=== PATIENT | female | born 1990 | race Caucasian/White ===

== ENCOUNTER 2022-02-23 15:14 | Outpatient (REF) | payer OTHER, SELFPAY ==
[2022-02-24 03:47] LABS: CT PCR NOT DETECTED (Not Detect.); NG PCR NOT DETECTED (Not Detect.)
[2022-02-24 15:28] LABS: BV Int Neg Control Negative (Negative); BV Int Pos Control Positive (Positive)
[2022-02-26 11:43] LABS: HPV mRNA E6/E7 rflx Not Detected (Not Detected)
== END 2022-02-23 15:15 | disposition home or self-care (01) ==
LOC: HO.LAB 15:14
PROVIDERS: PCP Internal Medicine; Visit Provider Advanced Practice Midwife
DX: Z01.419 Encounter for gynecological examination (general) (routine) without abnormal findings (principal); Z11.51 Encounter for screening for human papillomavirus (HPV); Z11.3 Encounter for screening for infections with a predominantly sexual mode of transmission; Z11.8 Encounter for screening for other infectious and parasitic diseases; F41.9 Anxiety disorder, unspecified; Z79.3 Long term (current) use of hormonal contraceptives; Z79.899 Other long term (current) drug therapy
CPT/HCPCS: 87480; 87491; 87510; 87591; 87624; 87660; 88142

== ENCOUNTER 2022-06-16 11:20 | Outpatient (REF) | payer OTHER, SELFPAY ==
[2022-06-16 13:45] LABS: MANUAL DIFF FLAG NO
[2022-06-16 13:53] LABS: Basophils Percent Auto 0.4 % (0-2); Eosinophils Absolute Auto 0.3 X10*3/uL (0.0-0.4); Eosinophils Percent Auto 3.3 % (0-4); Hemoglobin 13.3 g/dl (12.0-16.0); Imm Gran Abs Auto 0.05 X10*3/uL (0.00-0.03); Imm Gran Pct Auto 0.5 % (0.0-0.4); Lymphocytes Percent Auto 32.7 % (20-40); Mean Corpuscular HGB Conc 34.1 g/dl (31.0-35.0); Monocytes Absolute Auto 0.5 X10*3/uL (0.1-1.2); Monocytes Percent Auto 5.2 % (2-11); Neutrophils Absolute Auto 5.3 x10*3/uL (2.0-8.3); Neutrophils Percent Auto 57.9 % (45-73); Platelet Count 264 X10*3/uL (160-400); Red Blood Count 4.43 X10*6/uL (4.20-5.50); Red Cell Distribution Width 12.4 % (11.0-16.0); White Blood Count 9.2 X10*3/uL (4.8-10.8)
[2022-06-16 16:06] LABS: Alanine Aminotransferase 9 U/L (0-31); Albumin Level 4.3 g/dL (3.5-5.0); Alkaline Phosphatase 48 U/L (39-117); Anion Gap 12 (12-20); Aspartate Amino Transferase 13 U/L (5-31); Bilirubin Total 0.3 mg/dL (0.0-1.0); Blood Urea Nitrogen 9 mg/dL (9-16); Calcium 8.9 mg/dL (8.4-10.2); Carbon Dioxide 23 mmol/L (22-29); Chloride 109 mmol/L (96-108); Cholesterol 212 mg/dL; Estimated Glomerular Filt Rate > 60; Glucose Fasting 79 mg/dL (60-99); HDL Cholesterol 52 mg/dL; LDL Cholesterol Calculated 128 mg/dl; Potassium 4.1 mmol/L (3.3-5.1); Sodium 140 mmol/L (135-145); Total Protein 6.9 g/dL (6.5-8.0); Triglycerides 163 mg/dL
[2022-06-16 16:17] LABS: TSH reflex Free T4 0.44 uIU/mL (0.32-4.0)
[2022-06-16 16:19] LABS: Vitamin B12 261 pg/mL (200-900)
[2022-06-21 13:01] LABS: Vitamin D 25-OH, D2 <4 ng/mL; Vitamin D 25-OH, D3 59 ng/mL; Vitamin D 25-OH, Total 59 ng/mL (30-100)
== END 2022-06-16 11:21 | disposition home or self-care (01) ==
LOC: HO.HMGCLDS 11:20
PROVIDERS: PCP Internal Medicine; Visit Provider Internal Medicine
DX: Z00.01 Encounter for general adult medical examination with abnormal findings (principal); F41.1 Generalized anxiety disorder; R53.83 Other fatigue; E66.3 Overweight
CPT/HCPCS: 36415; 80053; 80061; 82306; 82607; 84443; 85025

== ENCOUNTER 2023-04-28 14:43 | Outpatient (REF) | payer OTHER, SELFPAY ==
[2023-04-29 15:13] LABS: CT PCR NOT DETECTED (Not Detect.); NG PCR NOT DETECTED (Not Detect.)
[2023-04-30 11:10] LABS: BV Int Neg Control Negative (Negative); BV Int Pos Control Positive (Positive)
== END 2023-04-28 14:44 | disposition home or self-care (01) ==
LOC: HO.LNP 14:43
PROVIDERS: PCP Internal Medicine; Visit Provider Advanced Practice Midwife
DX: Z01.419 Encounter for gynecological examination (general) (routine) without abnormal findings (principal); Z20.2 Contact with and (suspected) exposure to infections with a predominantly sexual mode of transmission
CPT/HCPCS: 0353U; 87480; 87510; 87660

== ENCOUNTER 2023-10-20 11:59 | Outpatient (AMB) | payer OTHER, SELFPAY ==
[2023-10-20 12:01] VITALS: BP 108/64; PULSE 88; O2SAT 99; BMI 28.0
--- NOTE | 2023-10-20 12:01 | MHC.PC.OV ---
Vital Signs 10/20/23 12:01 Height 4 ft 9 in Weight 129 lb 8 oz BMI 28.0 BP 108/64 Blood Pressure Location Rt brachial Position Sitting Pulse 88 Pulse Source Pulse Oximeter Pulse Oximetry (%) 99 Oxygen Delivery Method Room Air Intake Visit Reasons: Annual PE Allergies No Known Allergies Allergy (Verified 10/20/23 12:01) Medication List - Last Reconciled 10/20/23 by Estiven Little MD desogestrel-ethinyl estradiol 0.15-0.03 mg (Apri) 1 tab PO DAILY Tobacco use date assessed: 10/20/23 Dental Screening Dental Screen Date: 10/20/23 Did you have a dental visit in the last 12 months?: Yes Did you have a dental problem in the last 6 months where you did not have access to dental care?: No Was dental information given to patient?: Patient has dentist HPI Annual PE HPI Details Patient is a 33-year-old female came in today for physical exam Patient is complaining of feeling of fullness in her ears, on examination there is no wax I would recommend to try taking Claritin for few days to see if that helps. She has small skin cyst left side of her neck close to ear which is not bothering her and it is chronic Patient have OBGYN breast exam and Pap smear is through them and control is also through OBGYN I have ordered labs for the patient to do them fasting She is no longer taking Lexapro, she was taking that through Psychiatry for anxiety but she is feeling fine without the medication. Follow-up 1 year for physical exam [facility] Medical History Anxiety Surgical History [place] teeth removed Hx of tonsillectomy H/O left wrist surgery Family History Mother Hypothyroid Father Cancer Mental health disorder Social History Housing: House Patient Tobacco Use Status: Never used Tobacco e-Cigarette/Vaping Use: Never Used service: No Current occupational status: employed Cognitive needs: No Hearing needs: No Vision needs: Yes Female Reproductive History Menstrual Age of Menarche: 13 Questionnaire PHQ-9 Over the last 2 weeks, how often have you been bothered by any of the following problems? 1. Little interest or pleasure in doing things: several days 2. Feeling down, depressed, or hopeless: several days 3. Trouble falling or staying asleep, or sleeping too much: several days 4. Feeling tired or having little energy: several days 5. Poor appetite or overeating: more than half the days 6. Feeling bad about yourself - or that you are a failure or have let yourself or your family down: several days 7. Trouble concentrating on things, such as reading the newspaper or watching television: not at all 8. Moving or speaking so slowly that other people could have noticed. Or the opposite - being so fidgety or restless that you have been moving around a lot more than usual: not at all 9. Thoughts that you would be better off or of hurting yourself in some way: not at all Total score: 7 Depression Screening Interpretation: Negative Depression Screening Done: Yes 67589 - PHQ-9 Billing: Yes Source: Developed by Drs. Jeromy Qureshi, Madonna Maldonado, Nilay Vidal and colleagues, with an educational mechelle from [employer]. Thrive Questionnaire Date Thrive assessed: 10/20/23 I am a: Patient What is your living situation today?: I have a steady place to live Within the past 12 months, did the food you bought not last and you didn't have the money to get more?: Never true Within the past 12 months, did you worry whether your food would run out before you got money to buy more?: Never true Do you have trouble paying for medicines?: No Do you have trouble getting transportation to medical appointments?: No Do you have trouble paying your heating and electricity bill?: No Do you have trouble taking care of your child, family member or friend?: No Do you have trouble with day-to-day activities such as bathing, preparing meals, shopping, managing finances, etc.?: No Are you currently unemployed and looking for a job?: No Are you interested in more education?: No Please select the resources that you would like help with: None Currently or been in a relationship where the following occur: no concerns reported AUDIT C Alcohol Use Questionnaire (AUDIT-C) 1. How often do you have a drink containing alcohol?: Never 3. How often do you have six or more drinks on one occasion?: Never Total Score: 0 Score Reviewed/Action Taken: Yes CHAYO-7 AMB Questionnaire CHAYO-7 Date CHAYO - 7 assessed: 10/20/23 Feeling nervous, anxious, or on edge: 1 = Several days Not being able to stop or control worryin = Several days Worrying too much about different things: 1 = Several days Trouble relaxin = Several days Being so restless that it is hard to sit still: 0 = Not at all Becoming easily annoyed or irritable: 1 = Several days Feeling afraid as if something awful might happen: 0 = Not at all Total CHAYO-7 score (0-4 normal; 5-9 mild; 10-14 moderate; 15-21 severe): 5 Source: Developed by Drs. Jeromy Qureshi, Madonna Maldonado, Nilay Vidal and colleagues, with an educational mechelle from [employer]. CHAYO-7 Assessment Billing CHAYO-7 Assessment Tool: CHAYO-7 Assessment 60156 Review of Systems Const Denies chills, Denies fever(s) and Denies headache(s) Eyes Denies blurry vision ENT Denies headache(s), Denies nasal discharge, Denies nasal obstruction, Denies odynophagia and Denies sinus pain Card Denies chest pain at rest and Denies chest pain with activity Resp Denies cough and Denies hemoptysis GI Denies diarrhea, Denies odynophagia, Denies vomiting and Denies hematemesis Reports as per HPI Musc Denies abnormal gait Skin/Breast Reports as per HPI Neuro Denies Neuro-related abnormal movements, Denies Abnormal speech present, Denies abnormal gait, Denies headache(s) and Denies Sensory deficit (Neuro) Psych Denies mood swings and Denies paranoia Endo Reports as per HPI Alfonzo/Lymph Reports as per HPI Aller/Immun Reports as per HPI Physical exam (Primary Care) Vital Signs: Last Vital Signs Pulse 88 10/20/23 12:01 BP 108/64 10/20/23 12:01 Pulse Ox 99 10/20/23 12:01 Oxygen Delivery Method Room Air 10/20/23 12:01 BMI result Body Mass Index 28.0 Tobacco/Smoking Status: Tobacco use Status Tobacco use date assessed 10/20/23 10/20/23 12:05 Patient Tobacco Use Status Never used Tobacco 10/20/23 12:05 e-Cigarette/Vaping Use Never Used 10/20/23 12:05 PHQ-9: PHQ-9 Score PHQ-9: Total score 7 10/20/23 12:28 Depression Screening Interpretation: Negative Thrive Assessment: Date of Thrive Assessment Date Thrive assessed 10/20/23 10/20/23 12:28 Currently or been in a relationship where the following occur: no concerns reported Const General: cooperative, comfortable and no acute distress Orientation/consciousness: patient oriented x3 HENMT Other: No wax in the ears, tympanic membrane intact light reflex intact Head: Yes normocephalic and Yes atraumatic Eyes General: appearance normal, both eyes and all related structures Pupils: Equal, round and reactive pupils present EOM: EOMs intact bilaterally Neck Neck: Yes supple and No lymphadenopathy Thyroid: Thyroid normal Lymphatic: no lymphadenopathy noted Resp Effort & Inspection: normal respiratory effort and able to speak in complete sentences Auscultation: clear to auscultation bilaterally Cardio Heart sounds: S1 normal heart sound present and S2 normal heart sound present GI Palpation (GI): Soft to palpation and nontender Auscultation: normal bowel sounds General: Yes no CVA tenderness Back/Spine/Pelvis Back: no CVA tenderness Skin General skin exam: elasticity normal and turgor normal Neuro General: patient oriented x3 and gait normal Cranial nerves: Yes Equal, round and reactive pupils present Speech: No Abnormal speech present Sensory Exam: No Sensory deficit (Neuro) Coordination: tandem gait normal and Romberg test negative Extrem General: Yes normal exam except as noted and No edema Assessment and Plan Assessment & Plan (1) Encounter for general adult medical examination with abnormal findings: Code(s): Z00.01 - Encounter for general adult medical examination with abnormal findings (2) Overweight (BMI 25.0-29.9): Code(s): E66.3 - Overweight (3) B12 deficiency: Code(s): E53.8 - Deficiency of other specified B group vitamins (4) Skin cyst: Code(s): L72.9 - Follicular cyst of the skin and subcutaneous tissue, unspecified (5) Ear fullness: Code(s): H93.8X9 - Other specified disorders of ear, unspecified ear Qualifiers: Laterality: bilateral Qualified Code(s): H93.8X3 - Other specified disorders of ear, bilateral Plan Patient is a 33-year-old female came in today for physical exam Patient is complaining of feeling of fullness in her ears, on examination there is no wax I would recommend to try taking Claritin for few days to see if that helps. She has small skin cyst left side of her neck close to ear which is not bothering her and it is chronic Patient have OBGYN breast exam and Pap smear is through them and control is also through OBGYN I have ordered labs for the patient to do them fasting She is no longer taking Lexapro, she was taking that through Psychiatry for anxiety but she is feeling fine without the medication. Follow-up 1 year for physical exam Orders: Orders Complete Blood Count Auto Diff Today E53.8 - Deficiency of other specified B group vitamins, E66.3 - Overweight, H93.8X9 - Other specified disorders of ear, unspecified ear, L72.9 - Follicular cyst of the skin and subcutaneous tissue, unspecified, Z00.01 - Encounter for general adult medical examination with abnormal findings Comprehensive [place]. Panel Fast Today E53.8 - Deficiency of other specified B group vitamins, E66.3 - Overweight, H93.8X9 - Other specified disorders of ear, unspecified ear, L72.9 - Follicular cyst of the skin and subcutaneous tissue, unspecified, Z00.01 - Encounter for general adult medical examination with abnormal findings Lipid Panel Today E53.8 - Deficiency of other specified B group vitamins, E66.3 - Overweight, H93.8X9 - Other specified disorders of ear, unspecified ear, L72.9 - Follicular cyst of the skin and subcutaneous tissue, unspecified, Z00.01 - Encounter for general adult medical examination with abnormal findings TSH reflex Free T4 Today E53.8 - Deficiency of other specified B group vitamins, E66.3 - Overweight, H93.8X9 - Other specified disorders of ear, unspecified ear, L72.9 - Follicular cyst of the skin and subcutaneous tissue, unspecified, Z00.01 - Encounter for general adult medical examination with abnormal findings Vitamin B12 Today E53.8 - Deficiency of other specified B group vitamins Coding Level of Care Code Est Pt Prev Care 18-39y(54094) Diagnoses Encounter for general adult medical examination with abnormal findings Z00.01 Overweight (BMI 25.0-29.9) E66.3 B12 deficiency E53.8 Skin cyst L72.9 Sensation of fullness in both ears H93.8X3 Laterality: bilateral Additional Codes CHAYO-7 Assessment Billing - CHAYO-7 Assessment Tool: CHAYO-7 Assessment [id number] ([id number])
== END 2023-10-20 12:19 | disposition home or self-care (01) ==
PROVIDERS: PCP Internal Medicine; Visit Provider Internal Medicine
DX: Z00.00 Encounter for general adult medical examination without abnormal findings (principal); E66.3 Overweight; E53.8 Deficiency of other specified B group vitamins; L72.9 Follicular cyst of the skin and subcutaneous tissue, unspecified; H93.8X3 Other specified disorders of ear, bilateral; Z68.28 Body mass index [BMI] 28.0-28.9, adult
CPT/HCPCS: 99395

== ENCOUNTER 2024-05-03 15:00 | Outpatient (REF) | payer OTHER, SELFPAY ==
[2024-05-04 03:48] LABS: CT PCR NOT DETECTED (Not Detect.); NG PCR NOT DETECTED (Not Detect.)
[2024-05-04 11:06] LABS: Bacterial Vaginosis PCR NEGATIVE (Negative); Candida Group PCR NOT DETECTED (Not Detect); Candida glab krusei PCR NOT DETECTED (Not Detect); Trichomonas vaginalis PCR NOT DETECTED (Not Detect)
== END 2024-05-03 15:01 | disposition home or self-care (01) ==
LOC: HO.LAB 15:00
PROVIDERS: PCP Internal Medicine; Visit Provider Advanced Practice Midwife
DX: Z11.3 Encounter for screening for infections with a predominantly sexual mode of transmission (principal)
CPT/HCPCS: 0352U; 0353U

== ENCOUNTER 2024-05-03 15:00 | Outpatient (AMB) | payer OTHER, SELFPAY ==
--- NOTE | 2024-05-03 15:03 | A.OFFVIS_ITS ---
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 She stopped the control pills about 6 months ago because her partner had a vasectomy and completed all his negative testing afterwards. She said it took a couple of months for her periods to come back regular but now they have and they pretty much are about every 30 by her recounting of when the menses were in March. She felt that she gained a little bit of weight so she is trying to make healthier choices and go for more walks and its it resulting in her being able to sleep better too she is going to be offer the summer because she has on a school schedule for which a reading a lot of both send maybe tryingout for a play. [facility] Medical History Anxiety Surgical History [place] teeth removed Hx of tonsillectomy H/O left wrist surgery Family History Mother Hypothyroid Father Cancer Mental health disorder Social History Housing: House Patient Tobacco Use Status: Never used Tobacco e-Cigarette/Vaping Use: Never Used service: No Current occupational status: employed Cognitive needs: No Hearing needs: No Vision needs: Yes Female Reproductive History Menstrual Age of Menarche: 13 Duration of menses: 3-5 days Date of last menstrual period: 04/09/24 control method: none Total pregnancies: 0 Date of last pap smear: 02/24/22 (negative) History of abnormal pap smear: No Physical Exam Vital Signs: Last Vital Signs BP 100/60 05/03/24 15:10 BMI result Body Mass Index 27.9 Const General: healthy appearing, comfortable, no acute distress, well developed and alert Nutritional Appearance: average body habitus Orientation/consciousness: patient oriented x3 Limitations: no limitations HEENT Head: Yes normocephalic Neck Neck: Yes normal visual inspection Chest Chest palpation & inspection: normal inspection of the chest Breast/axilla inspection: normal inspection of the breasts and normal inspection of the axillae Breast/axilla palpation: normal palpation of the breasts and normal palpation of the axillae Resp Effort & Inspection: normal respiratory effort GI Inspection: Yes normal to inspection, No Abdominal wall edema and No distended Palpation (GI): Soft to palpation and nontender Other: External exam within normal limits vagina pink and moist normal appearing scant white discharge consistent with luteal phase. Cervix nulliparous pink smooth uterus small midposition mobile nontender adnexa nontender good tone with Kegel. General: Yes bladder normal to palpation External Female Exam: normal external appearance and normal appearance of the urethra Speculum Exam - Vagina: normal appearance of the vagina, normal palpation and normal vaginal discharge Speculum Exam - Cervix: normal appearance of the cervix, normal palpation and nontender Bimanual exam- vagina & uterus: normal bimanual exam, normal palpation, uterine size normal, bladder normal to palpation, consistency normal, normal palpation, uterine mobility normal, uterine shape normal, No Cervical tenderness present, non-tender and no cervical motion tenderness Bimanual Exam- Adnexa, other: normal adnexae, no masses, normal and No adnexal tenderness Neuro General: patient oriented x3 Assessment & Plan Assessment & Plan (1) Overweight (BMI 25.0-29.9): Code(s): E66.3 - Overweight Category: Medical (2) Cervical cancer screening: Comment: 02/23/22 Pap equals negative with negative HPV Code(s): Z12.4 - Encounter for screening for malignant neoplasm of cervix Category: Medical (3) Well woman exam with routine gynecological exam: Code(s): Z01.419 - Encounter for gynecological examination (general) (routine) without abnormal findings Category: Medical (4) Relies on partner's vasectomy for primary method of contraception: Code(s): Z78.9 - Other specified health status Category: Social Hx Plan -----Discussed in this visit the following: healthy balanced diet, regular and consistent exercise, getting recommended health screens, doing the best she can for her particular health concerns, kegel exercises, pap smear screening and followup recommendations, mammography screening and SBE, normal changes in cycles in her life stage--- . Reviewed self-care trying to maintain healthy body weight and the effect of gaining weight on regular menses . Discussed that if she ever did find herself missing menses and gaining more weight that there could be causality there and losing weight be the most important intervention. Reviewed her healthy eating and exercise plan. We will see her in 1 year her Pap smear will be according to ASCCP guidelines. Reviewed how she feels being off the control pills. She actually does not feel much difference at all reviewed the normal mucus and discharge changes that occur with normal cycles and signs of ovulation for educational purposes. Orders: Orders Bacterial Vaginosis Panel Today Z11.3 - Encounter for screening for infections with a predominantly sexual mode of transmission CT NG by PCR Today Z11.3 - Encounter for screening for infections with a predominantly sexual mode of transmission Coding Level of Care Code Est Pt Prev Care 18-39y(33880) Diagnoses Overweight (BMI 25.0-29.9) E66.3 Cervical cancer screening Z12.4 Well woman exam with routine gynecological exam Z01.419 Relies on partner's vasectomy for primary method of contraception Z78.9
[2024-05-03 15:10] VITALS: BP 100/60; BMI 27.9
== END 2024-05-03 16:01 | disposition home or self-care (01) ==
LOC: HO.HWSM 15:00
PROVIDERS: PCP Internal Medicine; Visit Provider Advanced Practice Midwife
DX: Z01.419 Encounter for gynecological examination (general) (routine) without abnormal findings (principal); E66.3 Overweight; Z78.9 Other specified health status
CPT/HCPCS: 99395

== ENCOUNTER 2024-08-03 09:05 | Outpatient (REF) | payer SELFPAY ==
[2024-08-03 10:05] LABS: MANUAL DIFF FLAG NO
[2024-08-03 10:44] LABS: Basophils Percent Auto 0.4 % (0-2); Eosinophils Absolute Auto 0.3 X10*3/uL (0.0-0.4); Eosinophils Percent Auto 3.2 % (0-4); Hematocrit 40.7 % (37.0-47.0); Hemoglobin 14.2 g/dl (12.0-16.0); Imm Gran Abs Auto 0.05 X10*3/uL (0.00-0.03); Imm Gran Pct Auto 0.5 % (0.0-0.4); Lymphocytes Absolute Auto 3.4 X10*3/uL (1.2-4.9); Lymphocytes Percent Auto 31.9 % (20-40); Mean Corpuscular HGB Conc 34.9 g/dl (31.0-35.0); Mean Corpuscular Hemoglobin 30.3 pg (27.0-33.0); Mean Corpuscular Volume 86.8 fL (80.0-98.0); Mean Platelet Volume 8.5 fL (9.4-12.3); Monocytes Absolute Auto 0.7 X10*3/uL (0.1-1.2); Monocytes Percent Auto 6.8 % (2-11); Neutrophils Percent Auto 57.2 % (45-73); Platelet Count 251 X10*3/uL (160-400); Red Blood Count 4.69 X10*6/uL (4.20-5.50); Red Cell Distribution Width 12.1 % (11.0-16.0); White Blood Count 10.5 X10*3/uL (4.8-10.8)
[2024-08-03 10:46] LABS: Albumin Level 4.4 g/dL (3.5-5.0); Bilirubin Total 0.2 mg/dL (0.0-1.0); Estimated Glomerular Filt Rate > 60; HDL Cholesterol 40 mg/dL (>40)
[2024-08-03 10:52] LABS: TSH reflex Free T4 0.76 uIU/mL (0.32-4.0)
[2024-08-03 10:59] LABS: Vitamin B12 1109 pg/mL (200-900)
[2024-08-03 11:24] LABS: Alanine Aminotransferase 24 U/L (0-31); Alkaline Phosphatase 72 U/L (39-117); Anion Gap 11 (12-20); Aspartate Amino Transferase 16 U/L (5-31); Blood Urea Nitrogen 9 mg/dL (9-16); Calcium 9.3 mg/dL (8.4-10.2); Carbon Dioxide 24 mmol/L (22-29); Chloride 109 mmol/L (96-108); Cholesterol 186 mg/dL (<200); Glucose Fasting 92 mg/dL (60-99); LDL Cholesterol Calculated 128 mg/dL (<100); Sodium 140 mmol/L (135-145); Total Protein 7.1 g/dL (6.5-8.0); Triglycerides 90 mg/dL (<150)
[2024-08-04 21:08] LABS: Mumps Virus IgG Antibody <9.00 AU/mL
== END 2024-08-03 09:06 | disposition home or self-care (01) ==
LOC: HO.HMGCLDS 09:05
PROVIDERS: PCP Internal Medicine; Visit Provider Internal Medicine
DX: Z00.01 Encounter for general adult medical examination with abnormal findings (principal); Z28.39 Other underimmunization status; E66.3 Overweight; E53.8 Deficiency of other specified B group vitamins; L72.9 Follicular cyst of the skin and subcutaneous tissue, unspecified; H93.8X9 Other specified disorders of ear, unspecified ear
CPT/HCPCS: 36415; 80053; 80061; 82607; 84443; 85025; 86735; 86762; 86765; 86787

== ENCOUNTER 2024-08-07 13:57 | Outpatient (AMB) | payer SELFPAY ==
--- NOTE | 2024-08-07 14:36 | AM.OFFVISNUR ---
Intake Visit Reasons: MMR Allergies No Known Allergies Allergy (Verified 05/03/24 15:10) Nursing Note MMR vaccine 0.5ml given to left deltoid Assessment & Plan Assessment & Plan Orders: Orders MMR Immunization Today Z23 - Encounter for immunization
== END 2024-08-07 16:22 | disposition home or self-care (01) ==
PROVIDERS: PCP Internal Medicine; Visit Provider Internal Medicine
DX: Z23 Encounter for immunization (principal)

== ENCOUNTER → 2024-08-07 13:57 | Outpatient (BNVA) | payer SELFPAY | PROVIDERS: PCP Internal Medicine; Visit Provider Internal Medicine | DX: Z23 Encounter for immunization (principal) | CPT/HCPCS: 90471; 90707 ==

== ENCOUNTER 2024-10-08 16:54 | Observation (INO) | payer BC, OTHER, SELFPAY ==
[2024-10-08] VITALS (8 sets, daily range): BP systolic 102–130; BP diastolic 58–81; PULSE 83–93; RESP 12–20; TEMP 36.6–37; O2SAT 97–100; BMI 27.7
--- NOTE | ~2024-10-08 | CT_ITS ---
EXAMINATION: CT ABDOMEN AND PELVIS WITH CONTRAST CLINICAL INFORMATION: Epigastric abdominal pain. COMPARISON: None available. TECHNIQUE: Multidetector volumetric imaging was performed from the lung bases through the pubic symphysis following the administration of: Oral contrast: None Intravenous contrast: 85 mL Omnipaque 350 No contrast reaction reported Sagittal and coronal reformatted images were obtained on the technologist's workstation. This CT examination was performed using dose optimization techniques as appropriate, variously including the following: *Automated exposure control *Adjustment of mA and/or kV according to patient size (this includes techniques or standardized protocols for targeted exams where dose is matched to indication/reason for exam; i.e. extremities or head) *Use of iterative reconstruction technique Total exam dose-length product 359 mGy-cm. FINDINGS: LUNG BASES: The lung bases are unremarkable. No pleural or pericardial effusion. LIVER, GALLBLADDER, AND BILIARY TREE: The liver is normal in size, shape and attenuation. A 0.6 cm low-attenuation in the left hepatic lobe (series 4 image 88) and a 0.5 cm low-attenuation in the hepatic segment 6 (series 4 image 267) are noted and are too small to characterize accurately. Statistically the findings likely represent cysts or hemangioma in the absence of underlying history of malignancy. The gallbladder is unremarkable with no evidence of radiopaque gallstones, gallbladder wall thickening, or obvious pericholecystic inflammatory changes. No biliary ductal dilatation. No radiopaque filling defect is noted in the common bile duct. PANCREAS: Normal; no mass or surrounding fluid. SPLEEN: Normal size. No focal lesion. ADRENAL GLANDS: Normal; no mass. KIDNEYS AND URETERS: The kidneys are normal in size, shape, and attenuation. No hydronephrosis, hydroureter, or calculi. GASTROINTESTINAL TRACT: The stomach is significantly distended with ingested material. Hyperdensities noted in the distal body of the stomach also likely represents ingested material, recommend clinical correlation. Wall of the stomach does not appear to be thickened. No perigastric stranding. No abnormal small bowel dilatation. Majority of the colon is likely largely decompressed. No definite evidence to suggest chronic wall thickening or pericolic fat stranding. An appendix is normal. The cecum is somewhat transversely oriented in the right lower abdominal quadrant. PERITONEAL CAVITY: No evidence of free intraperitoneal air. Trace free fluid in the pelvis is likely physiologic. No inflammatory changes or nodularity seen in the omentum and mesentery. ABDOMINAL WALL: No significant hernia is appreciated. LYMPHOVASCULAR STRUCTURES: There is no evidence of pathologically enlarged lymph nodes. The aortoiliac vessels are normal in caliber and well-opacified. BLADDER: No focal mass or wall thickening seen. No bladder calculi. PELVIC VISCERA: Normal CT appearance of the uterus which is deviated to the right. Right ovaries/adnexa are unremarkable in appearance. There is a 2.2 cm hypodense lesion is noted in the left ovary representing a cyst by CT Hounsfield criteria and represents physiologic/functional ovarian cyst and no further imaging follow-up of this finding is warranted. OSSEOUS STRUCTURES: No acute or suspicious osseous abnormality. 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 Nonfusion of the spinous process of the L5 is noted. CT/CT abdomen pelvis w IV con IMPRESSION: 1. No acute abnormality is noted in the abdomen and pelvis to explain patient's symptoms. 2. The stomach is significantly distended with ingested material. No evidence of abnormal gastric wall thickening or perigastric stranding. 3. Subcentimeter low-attenuation lesions in the liver are too small to characterize accurately. Statistically the findings likely represent cysts or hemangioma in the absence of underlying history of malignancy. 4. No CT evidence of acute pancreatitis. Electronically signed by: Shanel Brody MD 10/08/2024 07:31 PM [facility]
--- NOTE | ~2024-10-08 | CT_ITS ---
EXAMINATION: CT CHEST WITHOUT CONTRAST CLINICAL INFORMATION: Abnormal chest x-ray COMPARISON: No priors. Correlated to x-ray dated October 08, 2024. TECHNIQUE: Multidetector volumetric CT imaging of the chest was done. Axial MIP volume rendering provided. Sagittal and coronal reformatted images were obtained. This CT examination was performed using dose optimization techniques as appropriate, variously including the following: *Automated exposure control *Adjustment of mA and/or kV according to patient size (this includes techniques or standardized protocols for targeted exams where dose is matched to indication/reason for exam; i.e. extremities or head) *Use of iterative reconstruction technique DLP: 197 mGy-cm FINDINGS: STRIP PICKER: Inadequate evaluation of the mediastinal structures due to lack of IV contrast. There is a 2.6 cm ovoid shaped lesion, right pulmonary hilum. No pericardial effusion. The heart is normal in size. No aneurysm in the thoracic aorta. Edema pattern in the anterior mediastinum/thymus region without discrete mass. No acute airspace disease. No pleural effusion. No pneumothorax. No bronchiectasis. No honeycombing. No acute fracture or listhesis in the axial skeleton. No lytic or blastic lesions. Clavicles are intact. Scapula is intact bilaterally. Sternum is intact. No acute rib fracture. No lymphadenopathy, axilla. Normal-sized thyroid gland without dominant nodule. CT/CT chest wo IV con IMPRESSION: 2.6 cm lymphadenopathy, right pulmonary hilum. A lymphoproliferative disorder versus primary or metastatic malignancy cannot be excluded. Fleischner guidelines were followed. Electronically signed by: Juan Oneal MD 10/09/2024 03:03 PM [facility]
--- NOTE | ~2024-10-08 | XR_ITS ---
EXAMINATION: XR CHEST CLINICAL INFORMATION: Shortness of breath COMPARISON: None available. TECHNIQUE: Frontal view of the chest was obtained. FINDINGS: Cardiomediastinal silhouette is normal. No abnormal tracheal deviation. Multiple EKG leads and wires overlie the chest. Prominent right hilar opacity is noted which may represent prominent pulmonary vasculature however soft tissue nodule or prominent lymph node here cannot be excluded. Otherwise, there is no evidence of focal airspace opacities. No evidence of pulmonary edema, pleural effusions or pneumothorax. The visualized osseous structures and upper abdomen are unremarkable. XR/XR chest 1V IMPRESSION: No radiographic evidence of pneumonia. No acute pulmonary process. Prominent right hilar opacity may represent prominent vasculature however soft tissue nodule or prominent lymph node here cannot be excluded. Recommend correlation with CT chest with contrast. Electronically signed by: Shanel Brody MD 10/08/2024 10:03 PM [facility]
--- NOTE | 2024-10-08 17:17 | ECG_ITS ---
Test Reason : ABD PAIN Blood Pressure : / mmHG Vent. Rate : 073 BPM Atrial Rate : 073 BPM P-R Int : 170 ms QRS Dur : 076 ms QT Int : 378 ms P-R-T Axes : 030 030 032 degrees QTc Int : 416 ms Normal sinus rhythm with sinus arrhythmia Normal ECG No previous ECGs available Referred By: Alyson Farris Electronically Signed By:ERUM WITT MD
--- NOTE | 2024-10-08 17:22 | ED_ITS ---
HPI - Abdominal Pain General Chief Complaint: Abdominal Pain Stated Complaint: ABD PAIN/DIARRHEA PER EMS Time Seen by Provider: 10/08/24 17:06 History of Present Illness HPI narrative: Patient is a 34-year-old female presents today with having abdominal pain in the epigastric area that started this morning. Ate some rice for lunch. Subsequently had the pain. Went to urgent Care was given GI cocktail then had some vomiting patient came to the ED for help. There is no change in her menstruation. Patient did not miss her menstruation. Denies any fever chills. No history of diabetes, hypertension, high cholesterol, smoking, mi. No history of abdominal surgery in the past. Positive diarrhea that is brown in color. There is no coughing or congestion or upper respiratory symptoms. Related Data Home Medications ?Medication ?Instructions ?Recorded ?Confirmed No Known Home Meds 05/03/24 05/03/24 Allergies Allergy/AdvReac Type Severity Reaction Status Date / Time No Known Allergies Allergy Verified 10/08/24 17:06 Review of Systems Review of Systems Positive abdominal pain Yes all other systems are reviewed and are negative PMFSH Past Medical History Attestation statement: The following information was validated with the patient. Medical History Anxiety Surgical History [place] teeth removed Hx of tonsillectomy H/O left wrist surgery Family History Family History Mother Hypothyroid Father Cancer Mental health disorder Social History Social History Housing: House Alcohol intake: never Patient Tobacco Use Status: Never used Tobacco Smoked in Last 30 Days: No e-Cigarette/Vaping Use: Never Used Use of substances other than those prescribed or required for medical reasons: Yes Substance Use Type: Marijuana Advance Directives: No Advance Directives Information Provided: No service: No Current occupational status: employed Cognitive needs: No Hearing needs: No Vision needs: Yes Physical Exam ED Vital Signs: Vital Signs - 24 hr 10/08/24 17:06 10/08/24 17:14 10/08/24 19:01 Temperature 98.6 F Pulse Rate 93 Respiratory Rate 18 20 Blood Pressure 124/72 Pulse Oximetry 99 Oxygen Delivery Method Room Air 10/08/24 19:22 10/08/24 20:00 10/08/24 20:18 Temperature 98.1 F Pulse Rate 91 83 87 Respiratory Rate 16 20 14 Blood Pressure 130/81 116/72 102/70 Pulse Oximetry 100 100 99 Oxygen Delivery Method Room Air Room Air Room Air BMI result Body Mass Index 27.7 Appearance: Alert. Oriented X3. No acute distress. Eyes: Pupils equal, round and reactive to light. ENT: Pharynx normal. Neck: Normal inspection. Neck supple. No lymph nodes noted. No crepitus CVS: Normal heart rate and rhythm. Pulses normal. Normal S1 and S2 Respiratory: No respiratory distress. Breath sounds normal. No Wheezing. No rales Abdomen: Soft and nontender. No rigidity. No distention. good BS x4 Skin: Skin warm and dry. Normal skin color. Normal skin turgor. Extremities: No lower extremity edema. Neurovascular intact to all extremities. No Lacerations. No Rash Neuro: Oriented X 3. No motor deficit. No sensory deficit. Moving all extermities. No slurred speech Medical Decision Making Medical Decision Making [facility] Narrative: Patient is 34 years old presents today with having abdominal pain in the epigastric area been after lunch. Patient had diarrhea that was brown in color. White count came back at greater than 20. Patient's labs showed an elevated lactate. 30 cc/kilos of IV fluid was ordered. Patient's given Rocephin and Flagyl for empiric coverage of the abdomen. CT scan of the abdomen did not show any acute obstruction abscess perforation. No evidence for appendicitis. Patient's LFTs are normal no evidence for biliary disease. Repeat focal exam for sepsis was done patient is symptomatically improving. Nevertheless given the elevated white count the diarrhea the weakness the abdominal pain will admit for further evaluation and monitoring. Patient's case consulted by the hospitalist team. My interpretation patient's urine is also negative for any acute evidence of infection. Patient's test is negative there is no evidence for related issue. Differential Diagnosis Differential Diagnoses: The differential diagnosis associated with the presentation includes Admission/Observation Consideration of admission/observation: Escalation of care including admission/observation considered Patient to be admitted Consult Healthcare Provider Management of the patient was discussed with: Hospitalist Lab Data [facility] Lab Attestation statement: I reviewed the patient's lab results. 10/08/24 17:39 10/08/24 17:39 Labs: Lab Results 10/08/24 10/08/24 10/08/24 Range/Units 17:39 18:16 19:12 WBC 23.1 H (4.8-10.8) X10*3/uL RBC 4.85 (4.20-5.50) X10*6/uL Hgb 14.9 (12.0-16.0) g/dl Hct 42.1 (37.0-47.0) % MCV 86.8 (80.0-98.0) fL MCH 30.7 (27.0-33.0) pg MCHC 35.4 H (31.0-35.0) g/dl RDW 12.2 (11.0-16.0) % Plt Count 269 (160-400) X10*3/uL MPV 8.3 L (9.4-12.3) fL Immature Gran % (Auto) 0.5 H (0.0-0.4) % Neut % (Auto) 95.0 H (45-73) % Lymph % (Auto) 2.0 L (20-40) % [place] % (Auto) 2.3 (2-11) % Eos % (Auto) 0.0 (0-4) % Baso % (Auto) 0.2 (0-2) % Lymph # (Auto) 0.5 L (1.2-4.9) X10*3/uL [place] # (Auto) 0.5 (0.1-1.2) X10*3/uL Eos # (Auto) 0.0 (0.0-0.4) X10*3/uL Baso # (Auto) 0.0 (0.0-0.2) X10*3/uL Abs Immat Gran (auto) 0.12 H (0.00-0.03) X10*3/uL Absolute Neuts (auto) 22.0 H (2.0-8.3) x10*3/uL Absolute Nucleated RBC 0.000 (0.0-0.012) X10*3/uL Nucleated RBC % (auto) 0.0 (0.0-0.2) /100WBC Smear Tech's Comments VERIFIED Sodium 140 (135-145) mmol/L Potassium 3.3 (3.3-5.1) mmol/L Chloride 106 (96-108) mmol/L Carbon Dioxide 21 L (22-29) mmol/L Anion Gap 16 (12-20) BUN 7 L (9-16) mg/dL Creatinine 0.69 (0.5-1.4) mg/dL Estim Creat Clear Calc 84.9 Estimated GFR > 60 Random Glucose 154 H (60-115) mg/dL Lactic Acid 3.0 H* (0.5-2.0) mmol/L Calcium 8.9 (8.4-10.2) mg/dL Total Bilirubin 0.6 (0.0-1.0) mg/dL Direct Bilirubin 0.3 (0.0-0.5) mg/dL AST 72 H (5-31) U/L ALT 64 H (0-31) U/L Alkaline Phosphatase 65 (39-117) U/L Troponin I High Sens < 2.7 (<3.5-17.0) ng/L Total Protein 7.4 (6.5-8.0) g/dL Albumin 4.7 (3.5-5.0) g/dL Lipase 22 (8-78) U/L Beta HCG, Quant < 2 mIU/mL Urine Color Yellow Urine Appearance Clear Urine pH 5.5 (5.0-9.0) Ur Specific [place] 1.010 (1.005-1.025) Urine Protein Negative (Neg-Trace) mg/dL Urine Glucose (UA) Negative (Negative) mg/dL Urine Ketones Negative (Negative) mg/dL Urine Blood Small (1+) H (Negative) Urine Nitrite Negative (Negative) Ur Leukocyte Esterase Trace H (Negative) Urine RBC 0-2 (0-2) /HPF Urine WBC 0-5 (0-5) /HPF Ur Squamous Epith Cells 3-5 (0-2) /HPF Urine Bacteria 1+ (None Seen) Hyaline Casts 0-2 (0-2) /LPF Independent Interpretation I performed an independent interpretation of an: CT Scan (He has scan showed no obstruction abscess perforation) Radiology Impression Discussion of test interpretation with radiology: I have reviewed the radiologist's reading. Medications Administered Discontinued Medications Generic Name Dose Route Start Last Admin Trade Name Freq PRN Reason Stop Dose Admin Al Hydroxide/Mg Hydroxide 30 ml 10/08/24 17:19 10/08/24 17:38 Magnesium Hydrox/Alum Hydrox 30 Ml Oral.Susp PO 10/08/24 17:20 30 ml ONCE ONE Administration Ceftriaxone Sodium 1 gm 10/08/24 18:41 10/08/24 19:15 Ceftriaxone Sodium 1 Gm Vial IVPUSH 10/08/24 18:42 1 gm ONCE ONE Administration Hydromorphone HCl 0.5 mg 10/08/24 18:55 10/08/24 19:01 Hydromorphone Hcl 0.5 Mg/0.5 Ml Syringe IVPUSH 10/08/24 18:56 0.5 mg ONCE ONE Administration Protocol Sodium Chloride 1,000 mls @ 999 mls/hr 10/08/24 17:30 10/08/24 19:05 Ns IV 10/08/24 18:30 Infused .Q1H1M MARYJO Infusion Sodium Chloride 1,000 mls @ 999 mls/hr 10/08/24 17:30 10/08/24 20:02 Ns IV 10/08/24 18:30 Infused .Q1H1M MARYJO Infusion Metronidazole 500 mg in 100 mls @ 100 mls/hr 10/08/24 18:41 10/08/24 20:10 Flagyl IV 10/08/24 19:40 Infused ONCE ONE Infusion Iohexol 100 ml 10/08/24 18:31 10/08/24 18:32 Iohexol 350 Mg/Ml 100 Ml Infus..Btl IV 10/08/24 18:32 85 ml ONCE ONE Administration Ondansetron HCl 4 mg 10/08/24 17:17 10/08/24 17:37 Ondansetron Hcl 4 Mg/2 Ml Vial IVPUSH 10/08/24 17:18 4 mg ONCE ONE Administration Discharge Plan Discharge Clinical Impression: Colitis Patient Disposition: Admitted As Inpatient Prescriptions: No Action No Known Home Meds Print Language: Pashto
[2024-10-08] MEDS: ondansetron HCL 4 MG/2 ML VIAL IVPUSH ×2 (17:37→22:08)
[2024-10-08] MEDS: Magnesium Hydrox/Alum Hydrox 30 ML ORAL.SUSP PO (17:38)
[2024-10-08] MEDS: 0.9 % Sodium Chloride 1,000 ML 999 ML IV ×2 (17:43→19:05)
[2024-10-08 17:47] LABS: Basophils Percent Auto 0.2 % (0-2); Hematocrit 42.1 % (37.0-47.0); Hemoglobin 14.9 g/dl (12.0-16.0); Imm Gran Abs Auto 0.12 X10*3/uL (0.00-0.03); Imm Gran Pct Auto 0.5 % (0.0-0.4); Lymphocytes Absolute Auto 0.5 X10*3/uL (1.2-4.9); MANUAL DIFF FLAG SCAN; Mean Corpuscular HGB Conc 35.4 g/dl (31.0-35.0); Mean Corpuscular Hemoglobin 30.7 pg (27.0-33.0); Mean Corpuscular Volume 86.8 fL (80.0-98.0); Mean Platelet Volume 8.3 fL (9.4-12.3); Monocytes Absolute Auto 0.5 X10*3/uL (0.1-1.2); Monocytes Percent Auto 2.3 % (2-11); Platelet Count 269 X10*3/uL (160-400); Red Blood Count 4.85 X10*6/uL (4.20-5.50); Red Cell Distribution Width 12.2 % (11.0-16.0); SCAN SMEAR FLAG 1; White Blood Count 23.1 X10*3/uL (4.8-10.8)
[2024-10-08 18:01] LABS: Alanine Aminotransferase 64 U/L (0-31); Albumin Level 4.7 g/dL (3.5-5.0); Alkaline Phosphatase 65 U/L (39-117); Anion Gap 16 (12-20); Aspartate Amino Transferase 72 U/L (5-31); Bilirubin Direct 0.3 mg/dL (0.0-0.5); Bilirubin Total 0.6 mg/dL (0.0-1.0); Blood Urea Nitrogen 7 mg/dL (9-16); Calcium 8.9 mg/dL (8.4-10.2); Carbon Dioxide 21 mmol/L (22-29); Chloride 106 mmol/L (96-108); Creatinine Clr Calc Pharmacy 84.9; Estimated Glomerular Filt Rate > 60; Glucose Random 154 mg/dL (60-115); Lipase 22 U/L (8-78); Potassium 3.3 mmol/L (3.3-5.1); Sodium 140 mmol/L (135-145); Total Protein 7.4 g/dL (6.5-8.0)
--- NOTE | 2024-10-08 18:03 | PC.NURSE ---
From urgent care with complaint of diarrhea that started this morning , abd pain that started around 1pm after eating white rice, went to urgent care and was given Gi cocktail and vomited it back up. Was sent by urgent care to ED.
[2024-10-08 18:06] LABS: HCG Quantitative < 2 mIU/mL
[2024-10-08 18:07] LABS: Troponin-I High Sensitivity < 2.7 ng/L (<3.5-17.0)
[2024-10-08 18:08] LABS: SLIDE REVIEW VERIFIED
[2024-10-08 18:26] LABS: Appearance Urine Clear; Color Urine Yellow; Glucose Urine UA Negative (Negative); Leukocyte Esterase Urine Trace (Negative); Nitrite Urine Negative (Negative); PH 5.5 (5.0-9.0); UMIC TRIGGER UACC YES; Urine Blood Small (1+) (Negative); Urine Ketones Negative (Negative); Urine Protein Negative (Neg-Trace)
[2024-10-08] MEDS: iohexoL 350 MG/ML 100 ML INFUS..BTL IV (18:32)
[2024-10-08 18:42] LABS: Bacteria Urine 1+ (None Seen); Hyaline Casts Urine 0-2 /LPF (0-2); RBC Urine 0-2 /HPF (0-2); WBC Urine 0-5 /HPF (0-5)
[2024-10-08] MEDS: HYDROmorphone HCl 0.5 MG/0.5 ML SYRINGE IVPUSH (19:01)
[2024-10-08] MEDS: cefTRIAXone sodium 1 GM VIAL IVPUSH (19:15)
[2024-10-08] MEDS: metroNIDAZOLE/NS 500 MG/100 ML PIGGYBACK 100 MG IV (19:16)
--- NOTE | 2024-10-08 19:20 | PC.NURSE ---
Sepsis protocol initiated at 1900, one bag of fluids had previously just finished infusing at 1904 when protocol was initiated. bag 2 hung and infusing now.
[2024-10-08 21:16] LABS: Reflex Lactate? Lactic Acid Added
--- NOTE | 2024-10-08 21:19 | PC.NURSE ---
Patient changed over and placed on 15min continuous checks
[2024-10-08 21:50] LABS: ~Lactic Acid-LAB USE ONLY 1.5 mmol/L (0.5-2.0)
--- NOTE | 2024-10-08 22:58 | PM.IMHP ---
History of Present Illness Date of Service: 10/08/24 Attending physician on admission: Dakota Curtis Chief Complaint: N/V/D and abd pain Pt is a 34-year-old female without significant PMH not on home medications who presents to the ED with nausea, diarrhea, and epigastric abdominal pain. Patient reports she woke up this morning and had multiple episodes of diarrhea with last episode around 1 hour prior to presentation. Patient ate some white rice for lunch and soon thereafter began experiencing intense, nonradiating epigastric abdominal pain. Patient 1st presented to urgent care and was provided a GI cocktail which she promptly vomited up. Was then sent to the ED for further evaluation. Patient reports continued to experience nausea, but no more episodes of vomiting. Reports not eating much earlier today, though has been experiencing a ?fullness? in her stomach. No fever or chills. Denies shortness of breath, difficulty breathing, or cough. Denies chest pain/pressure, palpitations. Currently patient states pain is well controlled, but continues to experience nausea and has not yet been able to tolerate p.o.. ? In the ED pt with elevated HR up to 93, vitals otherwise stable and WNL. Labs were significant for leukocytosis of 23.1, lactic acid 3.0, AST 72, and ALT 64. Stable H&H. No significant electrolyte abnormalities. Renal function baseline. Troponin negative. UA not convincingly positive for UTI. CT?of abdomen and pelvis found no acute abnormality to explain patient's symptoms, did show stomach significantly distended with ingested material. Also found sub cm low-attenuation lesions in liver likely representing cysts or hemangioma in the absence of underlying history of malignancy. CXR found no evidence of pneumonia or acute pulmonary process, but did show prominent right hilar opacity possibly representing prominent vasculature though soft tissue nodule or prominent lymph node can not be excluded. EKG demonstrated normal sinus rhythm without evidence of significant ST elevations or depressions. Pt was treated with ondansetron, GI cocktail, IVF, hydromorphone, ceftriaxone, and metronidazole. Pt will be admitted to the hospital under observation for treatment and further evaluation of intractable nausea, vomiting, diarrhea and abdominal pain likely secondary to gastroenteritis. Review of Systems Review of Systems: Negative except for that which is stated in the [facility] Medical History Anxiety Family History Mother Hypothyroid Father Cancer Mental health disorder Surgical History [place] teeth removed Hx of tonsillectomy H/O left wrist surgery Social History Housing: House Alcohol intake: never Patient Tobacco Use Status: Never used Tobacco Smoked in Last 30 Days: No e-Cigarette/Vaping Use: Never Used Use of substances other than those prescribed or required for medical reasons: Yes Substance Use Type: Marijuana Advance Directives: No Advance Directives Information Provided: No service: No Current occupational status: employed Cognitive needs: No Hearing needs: No Vision needs: Yes Meds Allergies Allergy/AdvReac Type Severity Reaction Status Date / Time No Known Allergies Allergy Verified 10/08/24 17:06 Active Medications: Current Medications Acetaminophen (Acetaminophen 325 Mg Tablet) 650 mg PO Q6H PRN PRN Reason: Pain, Mild (Pain Scale 1-3), fever or headache Benzonatate (Benzonatate 100 Mg Capsule) 100 mg PO TID PRN PRN Reason: Cough Calcium Carbonate (Calcium Carbonate 750 Mg Tab.Chew) 750 mg PO Q4H PRN PRN Reason: Heartburn Magnesium Hydroxide (Milk Of Magnesia 30 Ml Oral.Susp) 30 ml PO DAILY PRN PRN Reason: Constipation Melatonin (Melatonin 3 Mg Tablet) 6 mg PO BEDTIME PRN PRN Reason: Insomnia Morphine Sulfate (Morphine Sulfate 4 Mg/Ml Cartridge) 4 mg IVPUSH Q4H PRN; Protocol PRN Reason: Pain, Severe (Pain Scale 7-10) Ondansetron HCl (Ondansetron Hcl 4 Mg/2 Ml Vial) 4 mg IVPUSH Q8H PRN PRN Reason: Nausea and Vomiting Last Admin: 10/08/24 22:08 Dose: 4 mg Oxycodone HCl (Oxycodone Hcl Immed Release 5 Mg Tablet) 5 mg PO Q4H PRN PRN Reason: Pain, Moderate(Pain Scale 4-6) Sodium Chloride (0.9 % Sodium Chloride Flush 3 Ml Syringe) 3 [facility] Home Medications ?Medication ?Instructions ?Recorded ?Confirmed ?Last Taken ?Type No Known Home Meds 05/03/24 05/03/24 Unknown History Physical Exam Vital Signs and Narrative: Vital Signs: Last Vital Signs Temp 97.8 F 10/08/24 22:06 Pulse 91 10/08/24 22:06 Resp 12 10/08/24 22:06 BP 105/58 L 10/08/24 22:06 Pulse Ox 97 10/08/24 22:06 O2 Del Method Room Air 10/08/24 22:06 BMI result Body Mass Index 27.7 General: AOx3, no acute distress Resp: CTA bilaterally CVS: S1, S2, RRR GI: +BS, no distention, mild epigastric tenderness. Skin: Warm, dry Neuro: Cranial nerves II-XII grossly intact bilaterally. Motor grossly intact bilaterally Extremities: No edema Psych: Appropriate affect Results Labs 10/08/24 17:39 10/08/24 17:39 Labs: Laboratory Results - last 24 hr 10/08/24 10/08/24 10/08/24 17:39 18:16 19:12 MCV 86.8 MCH 30.7 MCHC 35.4 H RDW 12.2 Plt Count 269 MPV 8.3 L Immature Gran % (Auto) 0.5 H Neut % (Auto) 95.0 H Lymph % (Auto) 2.0 L [place] % (Auto) 2.3 Eos % (Auto) 0.0 Baso % (Auto) 0.2 Lymph # (Auto) 0.5 L [place] # (Auto) 0.5 Eos # (Auto) 0.0 Baso # (Auto) 0.0 Abs Immat Gran (auto) 0.12 H Absolute Neuts (auto) 22.0 H Absolute Nucleated RBC 0.000 Nucleated RBC % (auto) 0.0 Smear Tech's Comments VERIFIED Anion Gap 16 Estim Creat Clear Calc 84.9 Estimated GFR > 60 Random Glucose 154 H Lactic Acid 3.0 H* Lactic Acid F/U @ 2Hr Calcium 8.9 Total Bilirubin 0.6 Direct Bilirubin 0.3 AST 72 H ALT 64 H Alkaline Phosphatase 65 Troponin I High Sens < 2.7 Total Protein 7.4 Albumin 4.7 Lipase 22 Beta HCG, Quant < 2 Urine Color Yellow Urine Appearance Clear Urine pH 5.5 Ur Specific [place] 1.010 Urine Protein Negative Urine Glucose (UA) Negative Urine Ketones Negative Urine Blood Small (1+) H Urine Nitrite Negative Ur Leukocyte Esterase Trace H Urine RBC 0-2 Urine WBC 0-5 Ur Squamous Epith Cells 3-5 Urine Bacteria 1+ Hyaline Casts 0-2 10/08/24 21:32 MCV MCH MCHC RDW Plt Count MPV Immature Gran % (Auto) Neut % (Auto) Lymph % (Auto) [place] % (Auto) Eos % (Auto) Baso % (Auto) Lymph # (Auto) [place] # (Auto) Eos # (Auto) Baso # (Auto) Abs Immat Gran (auto) Absolute Neuts (auto) Absolute Nucleated RBC Nucleated RBC % (auto) Smear Tech's Comments Anion Gap Estim Creat Clear Calc Estimated GFR Random Glucose Lactic Acid Lactic Acid F/U @ 2Hr 1.5 Calcium Total Bilirubin Direct Bilirubin AST ALT Alkaline Phosphatase Troponin I High Sens Total Protein Albumin Lipase Beta HCG, Quant Urine Color Urine Appearance Urine pH Ur Specific [place] Urine Protein Urine Glucose (UA) Urine Ketones Urine Blood Urine Nitrite Ur Leukocyte Esterase Urine RBC Urine WBC Ur Squamous Epith Cells Urine Bacteria Hyaline Casts Imaging Radiologist's Impressions: Impressions Abdomen/Pelvis CT 10/08/24 18:20 IMPRESSION: 1. No acute abnormality is noted in the abdomen and pelvis to explain patient's symptoms. 2. The stomach is significantly distended with ingested material. No evidence of abnormal gastric wall thickening or perigastric stranding. 3. Subcentimeter low-attenuation lesions in the liver are too small to characterize accurately. Statistically the findings likely represent cysts or hemangioma in the absence of underlying history of malignancy. 4. No CT evidence of acute pancreatitis. Electronically signed by: Shanel Brody MD 10/08/2024 07:31 PM [facility] Chest X-Ray 10/08/24 19:41 IMPRESSION: No radiographic evidence of pneumonia. No acute pulmonary process. Prominent right hilar opacity may represent prominent vasculature however soft tissue nodule or prominent lymph node here cannot be excluded. Recommend correlation with CT chest with contrast. Electronically signed by: Shanel Brody MD 10/08/2024 10:03 PM [facility] Assessment and Plan (1) Abdominal pain: Status: Acute Plan Pt is a 34-year-old female without significant PMH not on home medications who presents to the ED with nausea, diarrhea, and epigastric abdominal pain. Pt will be admitted to the hospital under observation for treatment and further evaluation of intractable nausea, vomiting, diarrhea and abdominal pain likely secondary to gastroenteritis. Intractable nausea, vomiting, diarrhea and epigastric abdominal pain Symptom onset earlier today, still with nausea, abdominal pain, unable to tolerate p.o. CT negative for acute abdomen to explain symptoms Likely secondary to viral gastroenteritis No sepsis: Leukocytosis reactionary, elevated HR secondary to pain No indication to continue antibiotics at this time Will check GI panel, C diff Antiemetics, IV analgesics Clear liquid diet for now, advance as tolerated Lactic acidosis, resolved Lactic acid 3.0 at time of presentation, repeat 1.5 after IVF Secondary to nausea, vomiting, diarrhea, not sepsis Abnormal CXR Chest x-ray found prominent right hilar opacity, possibly representing prominent vasculature the soft tissue nodule or prominent lymph node can not be excluded Will correlate with CT of chest with contrast Full Code Attending:?Dr. Casas DVT Prophylaxis: Patient ambulatory, here for overnight observation Given that patient continues to experience intractable nausea and abdominal pain, patient will be admitted to the hospital for further evaluation of likely gastroenteritis and treatment with IV antiemetics, IV analgesics, and supportive care. Quality Stroke Does the patient have a stroke diagnosis?: No VTE Prior VTE?: No VTE Risk Level:: Medical - low VTE Device Contraindication: Treatment Not Indicated VTE Drug Contraindication: Treatment Not Indicated
[2024-10-08] MEDS: 0.9 % Sodium Chloride Flush 3 ML SYRINGE IVFLUSH (23:09)
[2024-10-09 01:24] LABS: Basophils Percent Auto 0.2 % (0-2); Eosinophils Percent Auto 0.1 % (0-4); Hematocrit 35.6 % (37.0-47.0); Hemoglobin 12.5 g/dl (12.0-16.0); Imm Gran Abs Auto 0.08 X10*3/uL (0.00-0.03); Imm Gran Pct Auto 0.4 % (0.0-0.4); Lymphocytes Absolute Auto 1.4 X10*3/uL (1.2-4.9); Lymphocytes Percent Auto 7.4 % (20-40); MANUAL DIFF FLAG NO; Mean Corpuscular HGB Conc 35.1 g/dl (31.0-35.0); Mean Corpuscular Hemoglobin 30.5 pg (27.0-33.0); Mean Corpuscular Volume 86.8 fL (80.0-98.0); Mean Platelet Volume 8.3 fL (9.4-12.3); Monocytes Absolute Auto 1.1 X10*3/uL (0.1-1.2); Monocytes Percent Auto 5.8 % (2-11); Neutrophils Absolute Auto 15.8 x10*3/uL (2.0-8.3); Neutrophils Percent Auto 86.1 % (45-73); Platelet Count 211 X10*3/uL (160-400); Red Cell Distribution Width 12.4 % (11.0-16.0); White Blood Count 18.3 X10*3/uL (4.8-10.8)
[2024-10-09 02:47] VITALS: BP 105/61; PULSE 89; RESP 20; TEMP 36.9; O2SAT 97
[2024-10-09 04:36] LABS: Hematocrit 35.8 % (37.0-47.0); Hemoglobin 12.8 g/dl (12.0-16.0); Mean Corpuscular HGB Conc 35.8 g/dl (31.0-35.0); Mean Corpuscular Hemoglobin 30.9 pg (27.0-33.0); Mean Corpuscular Volume 86.5 fL (80.0-98.0); Mean Platelet Volume 8.4 fL (9.4-12.3); Platelet Count 232 X10*3/uL (160-400); Red Blood Count 4.14 X10*6/uL (4.20-5.50); Red Cell Distribution Width 12.3 % (11.0-16.0); White Blood Count 17.8 X10*3/uL (4.8-10.8)
[2024-10-09 04:50] LABS: Anion Gap 13 (12-20); Blood Urea Nitrogen 4 mg/dL (9-16); Calcium 8.2 mg/dL (8.4-10.2); Carbon Dioxide 20 mmol/L (22-29); Chloride 112 mmol/L (96-108); Creatinine Clr Calc Pharmacy 83.7; Estimated Glomerular Filt Rate > 60; Glucose Random 115 mg/dL (60-115); Potassium 3.6 mmol/L (3.3-5.1); Sodium 141 mmol/L (135-145)
[2024-10-09 06:43] VITALS: BP 97/52; PULSE 90; RESP 17; TEMP 36.6; O2SAT 97
--- NOTE | 2024-10-09 07:44 | MHC.EDTECH ---
Patient aware we need a stool sample from her. Patient stated she didn't have to go to the bathroom at this time. I asked the patient to let us know when she needs to go so we can obtain the stool sample. Patient stated she will ring/let us know when she needs to go. Patient resting, states she is comfortable. Call humphreys placed within reach.
[2024-10-09] MEDS: 0.9 % Sodium Chloride Flush 3 ML SYRINGE IVFLUSH (09:15)
--- NOTE | 2024-10-09 09:19 | PC.NURSE ---
Amalia WOOD MOLDER at bedside, Ok for pt to have some saltines and alexa ashley to tolerate, plan for possible d/c this afternoon pending stool studies.
[2024-10-09 09:25] LABS: CDiff Gene PCR NEGATIVE (Negative)
--- NOTE | 2024-10-09 09:36 | HO.STUDENTPN ---
Subjective Subjective Date of Service: 10/09/24 Interval History: reports feeling better than yesterday, no longer has pain or nausea, decrease in bowel movements and improved consistency, tolerating clear diet without difficulty. Review of Systems Negative except for that which is stated in the HPI Physical Exam Vital Signs: Vital Signs: Last Vital Signs Temp 97.9 F 10/09/24 06:43 Pulse 90 10/09/24 06:43 Resp 17 10/09/24 06:43 BP 97/52 L 10/09/24 06:43 Pulse Ox 97 10/09/24 06:43 O2 Del Method Room Air 10/09/24 06:43 BMI result Body Mass Index 27.7 GI: Inspection: Yes normal to inspection Palpation (GI): Soft to palpation and No hepatosplenomegaly present Percussion: Yes normal to percussion Auscultation: normal bowel sounds Objective Data Active Medications Acetaminophen (Acetaminophen 325 Mg Tablet) 650 mg PO Q6H PRN PRN Reason: Pain, Mild (Pain Scale 1-3), fever or headache Benzonatate (Benzonatate 100 Mg Capsule) 100 mg PO TID PRN PRN Reason: Cough Calcium Carbonate (Calcium Carbonate 750 Mg Tab.Chew) 750 mg PO Q4H PRN PRN Reason: Heartburn Magnesium Hydroxide (Milk Of Magnesia 30 Ml Oral.Susp) 30 ml PO DAILY PRN PRN Reason: Constipation Melatonin (Melatonin 3 Mg Tablet) 6 mg PO BEDTIME PRN PRN Reason: Insomnia Morphine Sulfate (Morphine Sulfate 4 Mg/Ml Cartridge) 4 mg IVPUSH Q4H PRN; Protocol PRN Reason: Pain, Severe (Pain Scale 7-10) Ondansetron HCl (Ondansetron Hcl 4 Mg/2 Ml Vial) 4 mg IVPUSH Q8H PRN PRN Reason: Nausea and Vomiting Last Admin: 10/08/24 22:08 Dose: 4 mg Documented By: TIM Oxycodone HCl (Oxycodone Hcl Immed Release 5 Mg Tablet) 5 mg PO Q4H PRN PRN Reason: Pain, Moderate(Pain Scale 4-6) Sodium Chloride (0.9 % Sodium Chloride Flush 3 Ml Syringe) 3 ml IVFLUSH [facility] Last Admin: 10/09/24 09:15 Dose: 3 ml Documented By: SOBIA Labs 10/09/24 04:19 10/09/24 04:19 Labs: Laboratory Results - last 24 hr 10/08/24 10/08/24 10/08/24 17:39 18:16 19:12 MCV 86.8 MCH 30.7 MCHC 35.4 H RDW 12.2 Plt Count 269 MPV 8.3 L Immature Gran % (Auto) 0.5 H Neut % (Auto) 95.0 H Lymph % (Auto) 2.0 L [place] % (Auto) 2.3 Eos % (Auto) 0.0 Baso % (Auto) 0.2 Lymph # (Auto) 0.5 L [place] # (Auto) 0.5 Eos # (Auto) 0.0 Baso # (Auto) 0.0 Abs Immat Gran (auto) 0.12 H Absolute Neuts (auto) 22.0 H Absolute Nucleated RBC 0.000 Nucleated RBC % (auto) 0.0 Smear Tech's Comments VERIFIED Anion Gap 16 Estim Creat Clear Calc 84.9 Estimated GFR > 60 Random Glucose 154 H Lactic Acid 3.0 H* Lactic Acid F/U @ 2Hr Calcium 8.9 Total Bilirubin 0.6 Direct Bilirubin 0.3 AST 72 H ALT 64 H Alkaline Phosphatase 65 Troponin I High Sens < 2.7 Total Protein 7.4 Albumin 4.7 Lipase 22 Beta HCG, Quant < 2 Urine Color Yellow Urine Appearance Clear Urine pH 5.5 Ur Specific [place] 1.010 Urine Protein Negative Urine Glucose (UA) Negative Urine Ketones Negative Urine Blood Small (1+) H Urine Nitrite Negative Ur Leukocyte Esterase Trace H Urine RBC 0-2 Urine WBC 0-5 Ur Squamous Epith Cells 3-5 Urine Bacteria 1+ Hyaline Casts 0-2 C. difficile Tox B Gene 10/08/24 10/09/24 10/09/24 21:32 01:19 04:19 MCV 86.8 86.5 MCH 30.5 30.9 MCHC 35.1 H 35.8 H RDW 12.4 12.3 Plt Count 211 232 MPV 8.3 L 8.4 L Immature Gran % (Auto) 0.4 Neut % (Auto) 86.1 H Lymph % (Auto) 7.4 L [place] % (Auto) 5.8 Eos % (Auto) 0.1 Baso % (Auto) 0.2 Lymph # (Auto) 1.4 [place] # (Auto) 1.1 Eos # (Auto) 0.0 Baso # (Auto) 0.0 Abs Immat Gran (auto) 0.08 H Absolute Neuts (auto) 15.8 H Absolute Nucleated RBC 0.000 0.000 Nucleated RBC % (auto) 0.0 0.0 Smear Tech's Comments Anion Gap 13 Estim Creat Clear Calc 83.7 Estimated GFR > 60 Random Glucose 115 Lactic Acid Lactic Acid F/U @ 2Hr 1.5 Calcium 8.2 L D Total Bilirubin Direct Bilirubin AST ALT Alkaline Phosphatase Troponin I High Sens Total Protein Albumin Lipase Beta HCG, Quant Urine Color Urine Appearance Urine pH Ur Specific [place] Urine Protein Urine Glucose (UA) Urine Ketones Urine Blood Urine Nitrite Ur Leukocyte Esterase Urine RBC Urine WBC Ur Squamous Epith Cells Urine Bacteria Hyaline Casts C. difficile Tox B Gene 10/09/24 08:17 MCV MCH MCHC RDW Plt Count MPV Immature Gran % (Auto) Neut % (Auto) Lymph % (Auto) [place] % (Auto) Eos % (Auto) Baso % (Auto) Lymph # (Auto) [place] # (Auto) Eos # (Auto) Baso # (Auto) Abs Immat Gran (auto) Absolute Neuts (auto) Absolute Nucleated RBC Nucleated RBC % (auto) Smear Tech's Comments Anion Gap Estim Creat Clear Calc Estimated GFR Random Glucose Lactic Acid Lactic Acid F/U @ 2Hr Calcium Total Bilirubin Direct Bilirubin AST ALT Alkaline Phosphatase Troponin I High Sens Total Protein Albumin Lipase Beta HCG, Quant Urine Color Urine Appearance Urine pH Ur Specific [place] Urine Protein Urine Glucose (UA) Urine Ketones Urine Blood Urine Nitrite Ur Leukocyte Esterase Urine RBC Urine WBC Ur Squamous Epith Cells Urine Bacteria Hyaline Casts C. difficile Tox B Gene NEGATIVE Assessment and Plan Plan Pt is a 34-year-old female without significant PMH not on home medications who presents to the ED with nausea, diarrhea, and epigastric abdominal pain. Pt will be admitted to the hospital under observation for treatment and further evaluation of intractable nausea, vomiting, diarrhea and abdominal pain likely secondary to gastroenteritis. Intractable nausea, vomiting, diarrhea and epigastric abdominal pain Symptom onset earlier today, still with nausea, abdominal pain, unable to tolerate p.o. CT negative for acute abdomen to explain symptoms Likely secondary to viral gastroenteritis No sepsis: Leukocytosis reactionary, elevated HR secondary to pain No indication to continue antibiotics at this time Will check GI panel, C diff Antiemetics, IV analgesics Clear liquid diet for now, advance as tolerated Lactic acidosis, resolved Lactic acid 3.0 at time of presentation, repeat 1.5 after IVF Secondary to nausea, vomiting, diarrhea, not sepsis Abnormal CXR Chest x-ray found prominent right hilar opacity, possibly representing prominent vasculature the soft tissue nodule or prominent lymph node can not be excluded Will correlate with CT of chest with contrast Full Code Attending:?Dr. Casas DVT Prophylaxis: Patient ambulatory, here for overnight observation Given that patient continues to experience intractable nausea and abdominal pain, patient will be admitted to the hospital for further evaluation of likely gastroenteritis and treatment with IV antiemetics, IV analgesics, and supportive care. Quality Stroke Does the patient have a stroke diagnosis?: No VTE Prior VTE?: No VTE Risk Level:: Medical - low VTE Device Contraindication: Treatment Not Indicated VTE Drug Contraindication: Treatment Not Indicated
--- NOTE | 2024-10-09 09:41 | PHA.MEDREC ---
Addendum entered by William Cline RPh 10/09/24 10:52: Reviewed by [facility] Original Note: Pharmacy Consult ? Medication Reconciliation Pharmacy has completed the medication reconciliation. Patient states she is not on any home medications.
[2024-10-09 10:28] LABS: Adenovirus F 40/41 Not Detected (Not Detect.); Astrovirus Not Detected (Not Detect.); Campylobacter Not Detected (Not Detect.); Cryptosporidium Not Detected (Not Detect.); Cyclospora cayetanensis Not Detected (Not Detect.); E. coli EAEC Not Detected (Not Detect.); E. coli EPEC Not Detected (Not Detect.); E. coli ETEC Not Detected (Not Detect.); E. coli STEC Not Detected (Not Detect.); Entamoeba histolytica Not Detected (Not Detect.); Giardia lamblia Not Detected (Not Detect.); Norovirus GI/GII Not Detected (Not Detect.); Plesiomonas shigelloides Not Detected (Not Detect.); Rotavirus A Not Detected (Not Detect.); Salmonella Not Detected (Not Detect.); Sapovirus Not Detected (Not Detect.); Shigella sp./EIEC Not Detected (Not Detect.); Vibrio Not Detected (Not Detect.); Vibrio Cholerae Not Detected (Not Detect.); Yersinia enterocolitica Not Detected (Not Detect.)
--- NOTE | 2024-10-09 10:29 | PC.NURSE ---
pt able to tolerate saltine crackers without problem
--- NOTE | 2024-10-09 13:07 | MHC.CM.PN ---
Addendum entered by Alejandrina Santiago 10/09/24 14:56: PT WILL DC HOME TODAY WITH NO SERVICES Original Note: PT LIVES W/PARTNER IS WORKING AND INDEPENDENT HAS OWN RIDE HIOME DC PLAN HOME NO SERVICES
--- NOTE | 2024-10-09 14:21 | PM.DS ---
DS: Providers Provider Date of Service: 10/09/24 Date of admission: 10/08/24 21:51 Primary care physician: Estiven Little MD DS: Diagnosis Discharge Diagnosis (1) Abdominal pain: Status: Acute DS: Summary Hospital Course Hospital Course: History and physical as per admitting provider. Pt is a 34-year-old female without significant PMH not on home medications who presents to the ED with nausea, diarrhea, and epigastric abdominal pain. Patient reports she woke up this morning and had multiple episodes of diarrhea with last episode around 1 hour prior to presentation. Patient ate some white rice for lunch and soon thereafter began experiencing intense, nonradiating epigastric abdominal pain. Patient 1st presented to urgent care and was provided a GI cocktail which she promptly vomited up. Was then sent to the ED for further evaluation. Patient reports continued to experience nausea, but no more episodes of vomiting. Reports not eating much earlier today, though has been experiencing a ?fullness? in her stomach. No fever or chills. Denies shortness of breath, difficulty breathing, or cough. Denies chest pain/pressure, palpitations. Currently patient states pain is well controlled, but continues to experience nausea and has not yet been able to tolerate p.o.. ? In the ED pt with elevated HR up to 93, vitals otherwise stable and WNL. Labs were significant for leukocytosis of 23.1, lactic acid 3.0, AST 72, and ALT 64. Stable H&H. No significant electrolyte abnormalities. Renal function baseline. Troponin negative. UA not convincingly positive for UTI. CT?of abdomen and pelvis found no acute abnormality to explain patient's symptoms, did show stomach significantly distended with ingested material. Also found sub cm low-attenuation lesions in liver likely representing cysts or hemangioma in the absence of underlying history of malignancy. CXR found no evidence of pneumonia or acute pulmonary process, but did show prominent right hilar opacity possibly representing prominent vasculature though soft tissue nodule or prominent lymph node can not be excluded. EKG demonstrated normal sinus rhythm without evidence of significant ST elevations or depressions. Pt was treated with ondansetron, GI cocktail, IVF, hydromorphone, ceftriaxone, and metronidazole. Pt will be admitted to the hospital under observation for treatment and further evaluation of intractable nausea, vomiting, diarrhea and abdominal pain likely secondary to gastroenteritis 34-year-old woman treated for intractable nausea vomiting and diarrhea with epigastric pain likely secondary to gastroenteritis. CT of the abdomen negative for obvious infectious source or reason for symptoms, no sepsis, no indication for antibiotics, GI panel and C diff negative. Treated with IV fluids, IV analgesics and IV antiemetics. Started with clear liquid diet and advanced to regular today and able to tolerate just fine. Plan will be to discharge patient home with no services, bland diet for few days. Lactic acidosis. Initially elevated but treated with IV fluids and resolved secondary to nausea, vomiting and diarrhea. Abnormal chest x-ray. Showing prominent right hilar opacity with prominent vasculature, chest CT taken. Results pending. Patient has no respiratory issues can follow up outpatient. Time Attestation Discharge Coordination Time (in mins): 35 Quality: Safe Use of Opioids Does Pt have an Active Cancer Diagnosis on the Problem List?: No Quality: Stroke Does the patient have a stroke diagnosis?: No Physical Exam Vital Signs: Vital Signs: Last Vital Signs Temp 97.9 F 10/09/24 06:43 Pulse 90 10/09/24 06:43 Resp 17 10/09/24 06:43 BP 97/52 L 10/09/24 06:43 Pulse Ox 97 10/09/24 06:43 O2 Del Method Room Air 10/09/24 06:43 BMI result Body Mass Index 27.7 Appearing in no acute distress head is normocephalic atraumatic eyes pupils are PERRLA sclera is anicteric mouth throat mucous membranes are intact and moist neck is supple no lymphadenopathy, no JVD noted lung sounds are clear to auscultation heart regular rate rhythm, clear S1, S2 positive bowel sounds, abdomen is soft, nontender neuro patient is alert x3, no focal deficits DS: Data Data Completed and Pending Labs on day of discharge: Laboratory Results - last 24 hr 10/08/24 10/08/24 10/08/24 17:39 18:16 19:12 WBC 23.1 H RBC 4.85 Hgb 14.9 Hct 42.1 MCV 86.8 MCH 30.7 MCHC 35.4 H RDW 12.2 Plt Count 269 MPV 8.3 L Immature Gran % (Auto) 0.5 H Neut % (Auto) 95.0 H Lymph % (Auto) 2.0 L [place] % (Auto) 2.3 Eos % (Auto) 0.0 Baso % (Auto) 0.2 Lymph # (Auto) 0.5 L [place] # (Auto) 0.5 Eos # (Auto) 0.0 Baso # (Auto) 0.0 Abs Immat Gran (auto) 0.12 H Absolute Neuts (auto) 22.0 H Absolute Nucleated RBC 0.000 Nucleated RBC % (auto) 0.0 Smear Tech's Comments VERIFIED Sodium 140 Potassium 3.3 Chloride 106 Carbon Dioxide 21 L Anion Gap 16 BUN 7 L Creatinine 0.69 Estim Creat Clear Calc 84.9 Estimated GFR > 60 Random Glucose 154 H Lactic Acid 3.0 H* Lactic Acid F/U @ 2Hr Calcium 8.9 Total Bilirubin 0.6 Direct Bilirubin 0.3 AST 72 H ALT 64 H Alkaline Phosphatase 65 Troponin I High Sens < 2.7 Total Protein 7.4 Albumin 4.7 Lipase 22 Beta HCG, Quant < 2 Urine Color Yellow Urine Appearance Clear Urine pH 5.5 Ur Specific [place] 1.010 Urine Protein Negative Urine Glucose (UA) Negative Urine Ketones Negative Urine Blood Small (1+) H Urine Nitrite Negative Ur Leukocyte Esterase Trace H Urine RBC 0-2 Urine WBC 0-5 Ur Squamous Epith Cells 3-5 Urine Bacteria 1+ Hyaline Casts 0-2 Stl C. cayetanensis PCR Stool Rotavirus A PCR Stl Adenov F 40/41 PCR Stool Astrovirus (PCR) Stool Campylobacter PCR Stool Cryptosporidium PCR Stl Sh Tox Pr E STEC PCR Stool E coli O157 PCR Stl Enterotoxigenic E PCR Stool EPEC (PCR) Stool EAEC (PCR) Stl E. histolytica PCR Stool Giardia Lamblia PCR Stl P. shigelloides PCR Stool Salmonella PCR Stool Sapovirus (PCR) Stl Shigella/EIEC PCR St Y.enterocolitica PCR Stool Vibrio (PCR) Stl Vibrio cholerae PCR Stl Norovirus GI/GII PCR C. difficile Tox B Gene 10/08/24 10/09/24 10/09/24 21:32 01:19 04:19 WBC 18.3 H 17.8 H RBC 4.10 L 4.14 L Hgb 12.5 12.8 Hct 35.6 L 35.8 L MCV 86.8 86.5 MCH 30.5 30.9 MCHC 35.1 H 35.8 H RDW 12.4 12.3 Plt Count 211 232 MPV 8.3 L 8.4 L Immature Gran % (Auto) 0.4 Neut % (Auto) 86.1 H Lymph % (Auto) 7.4 L [place] % (Auto) 5.8 Eos % (Auto) 0.1 Baso % (Auto) 0.2 Lymph # (Auto) 1.4 [place] # (Auto) 1.1 Eos # (Auto) 0.0 Baso # (Auto) 0.0 Abs Immat Gran (auto) 0.08 H Absolute Neuts (auto) 15.8 H Absolute Nucleated RBC 0.000 0.000 Nucleated RBC % (auto) 0.0 0.0 Smear Tech's Comments Sodium 141 Potassium 3.6 Chloride 112 H Carbon Dioxide 20 L Anion Gap 13 BUN 4 L Creatinine 0.70 Estim Creat Clear Calc 83.7 Estimated GFR > 60 Random Glucose 115 Lactic Acid Lactic Acid F/U @ 2Hr 1.5 Calcium 8.2 L D Total Bilirubin Direct Bilirubin AST ALT Alkaline Phosphatase Troponin I High Sens Total Protein Albumin Lipase Beta HCG, Quant Urine Color Urine Appearance Urine pH Ur Specific [place] Urine Protein Urine Glucose (UA) Urine Ketones Urine Blood Urine Nitrite Ur Leukocyte Esterase Urine RBC Urine WBC Ur Squamous Epith Cells Urine Bacteria Hyaline Casts Stl C. cayetanensis PCR Stool Rotavirus A PCR Stl Adenov F 40/41 PCR Stool Astrovirus (PCR) Stool Campylobacter PCR Stool Cryptosporidium PCR Stl Sh Tox Pr E STEC PCR Stool E coli O157 PCR Stl Enterotoxigenic E PCR Stool EPEC (PCR) Stool EAEC (PCR) Stl E. histolytica PCR Stool Giardia [place]lia PCR Stl P. shigelloides PCR Stool Salmonella PCR Stool Sapovirus (PCR) Stl Shigella/EIEC PCR St Y.enterocolitica PCR Stool Vibrio (PCR) Stl Vibrio cholerae PCR Stl Norovirus GI/GII PCR C. difficile Tox B Gene 10/09/24 08:17 WBC RBC Hgb Hct MCV MCH MCHC RDW Plt Count MPV Immature Gran % (Auto) Neut % (Auto) Lymph % (Auto) [place] % (Auto) Eos % (Auto) Baso % (Auto) Lymph # (Auto) [place] # (Auto) Eos # (Auto) Baso # (Auto) Abs Immat Gran (auto) Absolute Neuts (auto) Absolute Nucleated RBC Nucleated RBC % (auto) Smear Tech's Comments Sodium Potassium Chloride Carbon Dioxide Anion Gap BUN Creatinine Estim Creat Clear Calc Estimated GFR Random Glucose Lactic Acid Lactic Acid F/U @ 2Hr Calcium Total Bilirubin Direct Bilirubin AST ALT Alkaline Phosphatase Troponin I High Sens Total Protein Albumin Lipase Beta HCG, Quant Urine Color Urine Appearance Urine pH Ur Specific [place] Urine Protein Urine Glucose (UA) Urine Ketones Urine Blood Urine Nitrite Ur Leukocyte Esterase Urine RBC Urine WBC Ur Squamous Epith Cells Urine Bacteria Hyaline Casts Stl C. cayetanensis PCR Not Detected Stool Rotavirus A PCR Not Detected Stl Adenov F 40/41 PCR Not Detected Stool Astrovirus (PCR) Not Detected Stool Campylobacter PCR Not Detected Stool Cryptosporidium PCR Not Detected Stl Sh Tox Pr E STEC PCR Not Detected Stool E coli O157 PCR Not applicable Stl Enterotoxigenic E PCR Not Detected Stool EPEC (PCR) Not Detected Stool EAEC (PCR) Not Detected Stl E. histolytica PCR Not Detected Stool Giardia [place]lia PCR Not Detected Stl P. shigelloides PCR Not Detected Stool Salmonella PCR Not Detected Stool Sapovirus (PCR) Not Detected Stl Shigella/EIEC PCR Not Detected St Y.enterocolitica PCR Not Detected Stool Vibrio (PCR) Not Detected Stl Vibrio cholerae PCR Not Detected Stl Norovirus GI/GII PCR Not Detected C. difficile Tox B Gene NEGATIVE Discharge Plan Discharge Anticipated Discharge Date/Time: 10/09/24 14:18 Patient Disposition: Home, Self-Care Discharge Diagnosis: Gastroenteritis Referrals: Estiven Little MD [Primary Care Provider] - 1 Week Discharge Medications: New ondansetron HCl 4 mg tablet 4 mg PO Q8H PRN (Reason: nausea and vomiting) Qty: 12 0RF Discharge Orders: Discharge Order (Routine); Ordered 10/09/24 Ordered By: Amalia Rich Diet: Advance to usual diet Activity on Discharge: As tolerated Stand Alone Forms: Patient Portal Discharge page Print Language: Green[place]ic Care Plan Goals: Advanced diet, bland foods for few days Health Concerns: Gastroenteritis Plan of Treatment: Follow-up with primary care provider as needed Take all medications as prescribed Assessment: See discharge summary
== END 2024-10-09 15:04 | disposition home or self-care (01) ==
LOC: HO.ED 20:47 → HO.EDOVER 22:03
PROVIDERS: Internal Medicine; Admitting Provider Student in an Organized Health Care Education/Training Program; Emergency Provider Emergency Medicine Emergency Medical Services; PCP Internal Medicine; Visit Provider Nurse Practitioner Acute Care
DX: K52.9 Noninfective gastroenteritis and colitis, unspecified (principal); R10.13 Epigastric pain; R11.2 Nausea with vomiting, unspecified; E87.20 Acidosis, unspecified; R91.8 Other nonspecific abnormal finding of lung field; R59.1 Generalized enlarged lymph nodes
CPT/HCPCS: 36415; 71045; 71250; 74177; 80048; 80076; 81001; 83605; 83690; 84484; 84702; 85025; 85027; 87040; 87493; 87507; 93005; 96361; 96365; 96375; 96376; 99221; 99285; J0696; J1171; J1836; J2405; Q9967

== ENCOUNTER → 2024-10-08 17:17 | Outpatient (BNV) | payer BC, SELFPAY | PROVIDERS: Admitting Provider Student in an Organized Health Care Education/Training Program; Emergency Provider Emergency Medicine Emergency Medical Services; PCP Internal Medicine; Visit Provider Internal Medicine Cardiovascular Disease | DX: I49.9 Cardiac arrhythmia, unspecified (principal) | CPT/HCPCS: 93010 ==

== ENCOUNTER 2024-10-08 21:51 | Outpatient (BNV) | payer BC, OTHER, SELFPAY | END 2024-10-09 12:53 | PROVIDERS: Admitting Provider Student in an Organized Health Care Education/Training Program; Emergency Provider Emergency Medicine Emergency Medical Services; PCP Internal Medicine; Visit Provider Radiology Diagnostic Radiology | DX: R59.0 Localized enlarged lymph nodes (principal) | CPT/HCPCS: 71250 ==

== ENCOUNTER → 2024-10-08 21:51 | Outpatient (BNV) | payer BC, OTHER, SELFPAY | PROVIDERS: Admitting Provider Student in an Organized Health Care Education/Training Program; Emergency Provider Emergency Medicine Emergency Medical Services; PCP Internal Medicine; Visit Provider Student in an Organized Health Care Education/Training Program | DX: R10.9 Unspecified abdominal pain (principal) | CPT/HCPCS: 99222 ==

== ENCOUNTER 2024-10-12 08:47 | Outpatient (AMB) | payer BC, OTHER, SELFPAY ==
--- NOTE | 2024-10-12 08:47 | A.OFFPC_ITS ---
Intake Visit Reasons: [facility] 10/09/24 Intractable N/V/D and abd pain Allergies No Known Allergies Allergy (Verified 10/12/24 08:50) Medication List - Last Reconciled 10/12/24 by Estiven Little MD ondansetron HCl 4 mg PO Q8H PRN Tobacco use date assessed: 10/12/24 Dental Screening Dental Screen Date: 10/12/24 Did you have a dental visit in the last 12 months?: Yes Did you have a dental problem in the last 6 months where you did not have access to dental care?: No Was dental information given to patient?: Patient has dentist HPI HPI Comments History of Present Illness Details Date of admission/discharge: 10/08/2024 to 10/09/2024 Facility: [facility] Discharge 2/current location: Diagnosis/procedure: Pt is a 34-year-old female without significant PMH not on home medications who presents to the ED with nausea, diarrhea, and epigastric abdominal pain. symptoms started morning of arrival to ER. she had intense, nonradiating epigastric abdominal pain. Patient 1st presented to urgent care and was provided a GI cocktail which she promptly vomited up. Was then sent to the ED for further evaluation. Patient reports continued to experience nausea, but no more episodes of vomiting. Reports not eating much earlier that day, though has been experiencing a ?fullness? in her stomach. No fever or chills. Denies shortness of breath, difficulty breathing, or cough. Denies chest pain/pressure, palpitations. In the ED pt with elevated HR up to 93, vitals otherwise stable and WNL. Labs were significant for leukocytosis of 23.1, lactic acid 3.0, AST 72, and ALT 64. Stable H&H. No significant electrolyte abnormalities. Renal function baseline. Troponin negative. UA not convincingly positive for UTI. CT?of abdomen and pelvis found no acute abnormality to explain patient's symptoms, did show stomach significantly distended with ingested material. Also found sub cm low-attenuation lesions in liver likely representing cysts or hemangioma in the absence of underlying history of malignancy. CXR found no evidence of pneumonia or acute pulmonary process, but did show prominent right hilar opacity possibly representing prominent vasculature though soft tissue nodule or prominent lymph node can not be excluded. EKG demonstrated normal sinus rhythm without evidence of significant ST elevations or depressions. Pt was treated with ondansetron, GI cocktail, IVF, hydromorphone, ceftriaxone, and metronidazole. and was admitted to the hospital under observation for treatment and further evaluation of intractable nausea, vomiting, diarrhea and abdominal pain likely secondary to gastroenteritis GI panel and C diff negative. Treated with IV fluids, IV analgesics and IV antiemetics. Started with clear liquid diet and advanced to regular today and able to tolerate just fine. Lactic acidosis. Initially elevated but treated with IV fluids and resolved secondary to nausea, vomiting and diarrhea. Abnormal chest x-ray. Showing prominent right hilar opacity with prominent vasculature, chest CT taken. report reviewed with patient today New/DC medications: nausea medication, she only took it once Changed medication/dozing: NO Pending labs/tests: CT CHEST WAS PENDING, REPORT REVIEWED WITH PATIENT IT SHOWED , 2.6 cm lymphadenopathy, right pulmonary hilum. A lymphoproliferative disorder versus primary or metastatic malignancy cannot be excluded referral to computer system validation specialist placed Call to patient: Date/time, called 10/12/24 at 9:45 am Outcome : spoke to patient directly on video D[employer] How are you feeling? she is back to normal self, and has gone back to work Any pain or discomfort? none , diarrhea has stopped yesterday Do you have any questions about your condition or discharge instructions? yes, she wanted to go over abd CT report with showed subcentimeter shadow in liver, we will do US liver in 6 Months, she has no pain RUQ Were you able to get her medications filled? yes Do you have any questions about your medications? no Were you able to schedule your follow-up appointments? I ll book her apt with computer system validation specialist If home health was ordered, have they contacted you? none ordered Any outpatient services, if so, are you scheduled? none ordered Are there any additional resources like transportation you might need during your recovery? no Educational needs/resources: none needed What support system do you have? back to home, dont need any extra support PFSH Medical History Anxiety Surgical History [place] teeth removed Hx of tonsillectomy H/O left wrist surgery Family History Mother Hypothyroid Father Cancer Mental health disorder Social History Housing: House Alcohol intake: never Patient Tobacco Use Status: Never used Tobacco e-Cigarette/Vaping Use: Never Used Substance Use Type: Marijuana service: No Current occupational status: employed Cognitive needs: No Hearing needs: No Vision needs: Yes Female Reproductive History Menstrual Age of Menarche: 13 Questionnaire Thrive Questionnaire Date Thrive assessed: 10/09/24 AUDIT C Alcohol Use Questionnaire (AUDIT-C) 1. How often do you have a drink containing alcohol?: Never 3. How often do you have six or more drinks on one occasion?: Never Total Score: 0 Score Reviewed/Action Taken: Yes CHAYO-7 AMB Questionnaire CHAYO-7 Date CHAYO - 7 assessed: 10/12/24 Feeling nervous, anxious, or on edge: 0 = Not at all Not being able to stop or control worryin = Not at all Worrying too much about different things: 0 = Not at all Trouble relaxin = Not at all Being so restless that it is hard to sit still: 0 = Not at all Becoming easily annoyed or irritable: 0 = Not at all Feeling afraid as if something awful might happen: 0 = Not at all Total CHAYO-7 score (0-4 normal; 5-9 mild; 10-14 moderate; 15-21 severe): 0 Source: Developed by Drs. Jeromy Qureshi, Madonna Maldonado, Nilay Vidal and colleagues, with an educational mechelle from [employer]. CHAYO-7 Assessment Billing CHAYO-7 Assessment Tool: CHAYO-7 Assessment 52908 Review of Systems Const Denies chills and Denies fever(s) ENT Denies epistaxis and Denies nasal discharge Card Denies chest pain Resp Denies chest congestion, Denies cough and Denies hemoptysis GI Denies diarrhea and Denies nausea Skin/Breast Denies rash Neuro Reports no additional complaints Psych Reports no additional complaints Endo Reports no additional complaints Physical exam (Primary Care) Tobacco/Smoking Status: Tobacco use Status Tobacco use date assessed 10/12/24 10/12/24 08:51 Patient Tobacco Use Status Never used Tobacco 10/12/24 08:47 e-Cigarette/Vaping Use Never Used 10/12/24 08:47 Thrive Assessment: Date of Thrive Assessment Date Thrive assessed 10/09/24 10/12/24 08:47 Telehealth Telehealth Telehealth Platform: [employer] Location of provider rendering services: practice address Location of patient: address on file Patient Identification confirmed using: Name, : Yes Telehealth method: video Patient verbally consented to treatment: Yes Patient verbally consented to billing insurance company: Yes Patient informed of any privacy concerns related to visit: Yes Coding Level of Care Code TCM Mod MDM <= 7 Days Diagnoses Hospital discharge follow-up Z09 Acute gastroenteritis K52.[address] Liver lesion [address] scan, chest R93.89 Additional Codes CHAYO-7 Assessment Billing - CHAYO-7 Assessment Tool: CHAYO-7 Assessment 36709 ([id number]) Assessment & Plan Assessment & Plan (1) Hospital discharge follow-up: Code(s): Z09 - Encounter for follow-up examination after completed treatment for conditions other than malignant neoplasm Category: Medical (2) Acute gastroenteritis: Code(s): K52.9 - Noninfective gastroenteritis and colitis, unspecified Category: Medical (3) Liver lesion: Code(s): K76.9 - Liver disease, unspecified Category: Medical (4) Abnormal CT scan, chest: Code(s): R93.89 - Abnormal findings on diagnostic imaging of other specified body structures Category: Medical Plan she is feeling better as per Gastroentritis is concerned we will repeat US abd in 6 M to ensure stability of subcentimeter shadow in liver for Ct chest , she will be seeing computer system validation specialist Orders: Referrals Pulmonology Referral R93.89 - Abnormal findings on diagnostic imaging of other specified body structures
== END 2024-10-12 10:59 | disposition home or self-care (01) ==
LOC: HO.HMCC 08:47
PROVIDERS: PCP Internal Medicine; Visit Provider Internal Medicine
DX: K52.9 Noninfective gastroenteritis and colitis, unspecified (principal); Z09 Encounter for follow-up examination after completed treatment for conditions other than malignant neoplasm; K76.9 Liver disease, unspecified; R93.89 Abnormal findings on diagnostic imaging of other specified body structures

== ENCOUNTER → 2024-10-12 08:47 | Outpatient (BNVA) | payer BC, OTHER, SELFPAY | PROVIDERS: PCP Internal Medicine; Visit Provider Internal Medicine ==

== ENCOUNTER 2024-10-30 15:18 | Outpatient (AMB) | payer BC, OTHER, SELFPAY ==
[2024-10-30 15:21] VITALS: BP 98/60; PULSE 76; O2SAT 98; BMI 27.9
--- NOTE | 2024-10-30 15:21 | A.OFFVIS_ITS ---
Vital Signs 10/30/24 15:21 Height 4 ft 9 in Weight 128 lb 15.527 oz BMI 27.9 BP 98/60 Blood Pressure Location Rt brachial Position Sitting Pulse 76 Pulse Source Pulse Oximeter Pulse Oximetry (%) 98 Oxygen Delivery Method Room Air Intake Visit Reasons: Abnormal CT scan Allergies No Known Allergies Allergy (Verified 10/30/24 15:23) HPI HPI Abnormal CT scan: Details: Mariana is a pleasant 34 year old female, never smoker, with no significant past medical history. She was referred by ED after recent admission for colitis revealing abnormal chest CT. CT chest without contrast revealed 2.6 cm ovoid shaped lesion, right pulmonary hilum with associated lymphadenopathy. She denies prior abnormal images. She denies any respiratory symptoms. She denies any fevers, chills, unintentional weight loss or change in appetite. She denies recurrent infections. She denies any prior h/o underlying autoimmune conditions. She denies any joint pain or rashes. She reports mother with arthritis, unsure what type, and thryoid disease. She reports father and maternal grandmother with CLL. 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 She denies prior h/o asthma. She does note significant second hand smoke exposure. [facility] Medical History Anxiety Surgical History [place] teeth removed Hx of tonsillectomy H/O left wrist surgery Family History Mother Hypothyroid Father Cancer Mental health disorder Social History Housing: House Alcohol intake: never Patient Tobacco Use Status: Never used Tobacco e-Cigarette/Vaping Use: Never Used Substance Use Type: Marijuana service: No Current occupational status: employed Cognitive needs: No Hearing needs: No Vision needs: Yes Female Reproductive History Menstrual Age of Menarche: 13 Review of Systems Const Denies chills, Denies excessive sweating, Denies fever(s), Denies headache(s) and Denies night sweats Eyes Denies dry eyes, Denies irritation and Denies itchy eyes ENT Reports Normal hearing present, Denies headache(s), Denies nasal congestion, Denies nasal discharge, Denies post nasal drip and Denies sore throat Card Denies chest pain, Denies chest pain at rest, Denies chest pain with activity, Denies claudication, Denies leg edema, Denies dyspnea, Denies dyspnea on exertion, Denies orthopnea and Denies paroxysmal nocturnal dyspnea Resp Denies chest congestion, Denies cough, Denies excessive phlegm production, Denies pain on inspiration, Denies pain with cough, Denies dyspnea, Denies dyspnea on exertion, Denies stridor and Denies wheezing Musc Denies myalgias Neuro Reports Normal hearing present and Denies headache(s) Endo Denies excessive sweating Alfonzo/Lymph Denies lymphadenopathy Aller/Immun Denies itchy eyes, Denies seasonal rhinorrhea and Denies wheezing Physical Exam Vital Signs: Last Vital Signs Pulse 76 10/30/24 15:21 BP 98/60 10/30/24 15:21 Pulse Ox 98 10/30/24 15:21 Oxygen Delivery Method Room Air 10/30/24 15:21 BMI result Body Mass Index 27.9 Const General: cooperative, healthy appearing, comfortable, no acute distress, well developed and alert Orientation/consciousness: patient oriented x3 Limitations: no limitations HEENT Head: Yes normal to inspection, Yes normocephalic and Yes atraumatic Ears: hearing grossly normal bilaterally and external ears normal Eyes General: appearance normal, both eyes and all related structures Eyelids: Yes eyelids normal Sclerae: sclerae normal EOM: EOMs intact bilaterally Neck Neck: Yes normal visual inspection and Yes no lymphadenopathy Lymphatic: no lymphadenopathy noted Chest Chest palpation & inspection: normal inspection of the chest Resp Effort & Inspection: normal respiratory effort, able to speak in complete sentences, no audible wheezes, no cough, no stridor, not tachypneic, no tripod positioning and no use of accessory muscles Auscultation: clear to auscultation bilaterally Cardio Jugular venous distension: no JVD Rate: regular rate Rhythm: regular rhythm Skin Other: warm, dry General skin exam: no rashes or lesions noted Neuro General: patient oriented x3 Cranial nerves: Yes Normal hearing present Cognition (Neuro): normal cognition Gait exam (Neuro): Normal gait present Extrem General: Yes normal to inspection, Yes capillary refill normal, Yes no clubbing, cyanosis or edema and Yes no pedal edema Psych Appearance: grossly normal and well kempt Speech and movement: Normal speech and movement present and Clear speech present Affect: normal affect Attitude: cooperative Thought process: Normal thought process present Thought content: Normal thought content present Insight: Good insight present (Psych) Judgement: Good judgement present (Psych) Results Reviewed Results Reviewed: [address] [address] [address] Scan Report Signed Patient: Mariana Marrero MR#: [id number] : 1990 Acct:[id number] Age/Sex: 34 / F ADM Date: 10/08/24 Loc: [facility]: Amalia Rich NP Ordering Physician: Amalia Rich NP Date of Service: 10/09/24 Procedure(s): CT chest wo IV con Accession Number(s): [id number] cc: Estiven Little MD; Amalia Rich NP~ EXAMINATION: CT CHEST WITHOUT CONTRAST CLINICAL INFORMATION: Abnormal chest x-ray COMPARISON: No priors. Correlated to x-ray dated October 08, 2024. TECHNIQUE: Multidetector volumetric CT imaging of the chest was done. Axial MIP volume rendering provided. Sagittal and coronal reformatted images were obtained. This CT examination was performed using dose optimization techniques as appropriate, variously including the following: *Automated exposure control *Adjustment of mA and/or kV according to patient size (this includes techniques or standardized protocols for targeted exams where dose is matched to indication/reason for exam; i.e. extremities or head) *Use of iterative reconstruction technique DLP: 197 mGy-cm FINDINGS: ONLINE MARKETER: Inadequate evaluation of the mediastinal structures due to lack of IV contrast. There is a 2.6 cm ovoid shaped lesion, right pulmonary hilum. No pericardial effusion. The heart is normal in size. No aneurysm in the thoracic aorta. Edema pattern in the anterior mediastinum/thymus region without discrete mass. No acute airspace disease. No pleural effusion. No pneumothorax. No bronchiectasis. No honeycombing. No acute fracture or listhesis in the axial skeleton. No lytic or blastic lesions. Clavicles are intact. Scapula is intact bilaterally. Sternum is intact. No acute rib fracture. No lymphadenopathy, axilla. Normal-sized thyroid gland without dominant nodule. CT/CT chest wo IV con IMPRESSION: 2.6 cm lymphadenopathy, right pulmonary hilum. A lymphoproliferative disorder versus primary or metastatic malignancy cannot be excluded. Fleischner guidelines were followed. Electronically signed by: Juan Oneal MD 10/09/2024 03:03 PM EST Dictated By: Juan Edmond MD Signed By: <Electronically signed by Juan Fuentes MD in OV> 10/09/24 1503 DD/ 1253 TD/TT: 10/09/24 1302 Substation Designer: Assessment & Plan Assessment & Plan (1) Pulmonary nodule: Code(s): R91.1 - Solitary pulmonary nodule Category: Medical (2) Mediastinal lymphadenopathy: Code(s): R59.0 - Localized enlarged lymph nodes Category: Medical Plan Mariana presents for pulmonary evaluation after recent abnormal chest CT which rev ealed 2.6 cm ovoid shaped lesion, right pulmonary hilum. We discussed a lymphoproliferative disorder versus primary or metastatic malignancy cannot be excluded. Should also consider underlying CTD, will check inflammatory markers, however less likely. Will send for chest CT with contrast to better assess lymphadenopathy and consider PET followed by [facility]. Will follow up to review results. All questions were answered and patient is in agreement of plan. Orders: Orders C Reactive Protein 10/30/24 R59.0 - Localized enlarged lymph nodes CT chest w IV con Today R59.0 - Localized enlarged lymph nodes, R91.1 - Solitary pulmonary nodule SCOTTY Reflex Titer and Pattern 10/30/24 R59.0 - Localized enlarged lymph nodes Erythrocyte Sedimentation Rate 10/30/24 R59.0 - Localized enlarged lymph nodes Coding Level of Care Code New Pt Level 4 (93709) Diagnoses Pulmonary nodule R91.1 Mediastinal lymphadenopathy R59.0
== END 2024-10-30 16:40 | disposition home or self-care (01) ==
PROVIDERS: PCP Internal Medicine; Referring Provider Internal Medicine; Visit Provider Nurse Practitioner Family
DX: R91.1 Solitary pulmonary nodule (principal); R59.0 Localized enlarged lymph nodes
CPT/HCPCS: 99204

== ENCOUNTER 2024-10-30 15:18 | Outpatient (REF) | payer BC, SELFPAY ==
[2024-10-30 17:22] LABS: C Reactive Protein < 0.10 mg/dL (< or = 0.50)
[2024-10-30 17:45] LABS: Erythrocyte Sedimentation Rate 6 MM/HR (0-20)
[2024-11-02 15:03] LABS: Anti Nuclear Antibody Screen POSITIVE (NEGATIVE); Anti Nuclear Antibody Titer 1:40 titer
== END 2024-10-30 15:19 | disposition home or self-care (01) ==
LOC: HO.LAB 15:18
PROVIDERS: PCP Internal Medicine; Referring Provider Internal Medicine; Visit Provider Nurse Practitioner Family
DX: R59.0 Localized enlarged lymph nodes (principal)
CPT/HCPCS: 36415; 85652; 86038; 86039; 86140

== ENCOUNTER 2024-11-08 14:22 | Outpatient (AMB) | payer BC, SELFPAY ==
[2024-11-08 14:28] VITALS: BP 112/72; PULSE 76; O2SAT 100; BMI 28.2
--- NOTE | 2024-11-08 14:28 | A.OFFPC_ITS ---
Vital Signs 11/08/24 14:28 Height 4 ft 9 in Weight 130 lb 6 oz BMI 28.2 BP 112/72 Blood Pressure Location Lt brachial Position Sitting Pulse 76 Pulse Source Pulse Oximeter Pulse Oximetry (%) 100 Oxygen Delivery Method Room Air Intake Visit Reasons: Annual PE Allergies No Known Allergies Allergy (Verified 11/08/24 14:28) Medication List - Last Reconciled 11/08/24 by Estiven Little MD Tobacco use date assessed: 11/08/24 Dental Screening Dental Screen Date: 11/08/24 Did you have a dental visit in the last 12 months?: Yes Did you have a dental problem in the last 6 months where you did not have access to dental care?: No Was dental information given to patient?: Patient has dentist HPI Annual PE HPI0 Details Physical exam appointment - The patient is a 34-year-old female pr esenting for follow-up regarding potential autoimmune disease. She was in emergency room in September due to diarrhea, ended up having CT scan of chest and abdomen which showed incidental finding of lymph node in the lung Leading to pulmonary consultation. She has another CT scan scheduled with contrast to further evaluate She also had SCOTTY positive which led to rheumatology appointment however patient has not seen them as yet Appointment is coming up Concerned about memory changes which has been happening for the past few months Requesting Neurology referral Patient has a family history of CLL in grandmother and father Health Maintenance - OBGYN visit up to date as of April. - Referral to neurology for memory jared rns. 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 - Does not report any job-related stress or exposures. Diagnostic results - Labs: Low positive autoantibody test r esults; elevated white blood cell count in September. - Imaging: Pending CT with contrast; Review of Systems - ENT: Reports ear fullness and pressure for a month - Neurological: Reports memory issues an d difficulty with memorization - Gastrointestinal: Denies current sympt oms of diarrhea, nausea, or vomiting - Skin: Denies rashes or skin problems - General: No fever no chills - Ear nose throat: No sore throat no hearing difficulty no ear pain - Musculoskeletal: No acute issues - Cardiovascular: No syncope, no chest pain, no palpitations - Gastrointestinal: No nausea vomiting or diarrhea - Endocrine: No polyuria polydipsia no heat intolerance - Genitourinary: No dysuria - Skin: No new complaints Physical Exam General: Cooperative, healthy appearing, comfortable, no acute distress Orientation: Patient oriented x3 Limitations: None Head: Normal to inspection Ears: Within normal limit visually, but patient reports feeling of fullness and pressure for about a month; slight inflammation noted right ear, no infection or wax Nose: Normal external nose present Face and sinus: Normal facial exam Eyes: Appearance normal, extraocular movement intact pupils reactive Neck: Normal visual inspection and supple Respiratory: Normal respiratory effort and able to speak in complete sentences. Clear to auscultation, no stridor Cardiovascular: S1 and S2 GI: Normal to inspection. Soft to palpation and nontender Skin: Turgor normal, no acute findings, no rashes or skin problems reported Neuro: Patient oriented x3, motor sensory intact, balance intact, tandem pass; patient reports memory concerns, referral to neurology suggested Extremities: Normal to inspection Patient Instructions - Take Advil for ear inflammation as nee ded. - Schedule and complete fasting lab work . - Follow through with pending CT with co ntrast. - Attend scheduled rheumatology and neur ology appointments. - Monitor memory issues and report any w orsening or new symptoms. Follow-up 1 year physical exam, lab order placed to be done fasting [facility] Medical History Anxiety Surgical History [place] teeth removed Hx of tonsillectomy H/O left wrist surgery Family History Mother Hypothyroid Father Cancer Mental health disorder Social History Housing: House Alcohol intake: never Patient Tobacco Use Status: Never used Tobacco e-Cigarette/Vaping Use: Never Used Substance Use Type: Marijuana service: No Current occupational status: employed Cognitive needs: No Hearing needs: No Vision needs: Yes Female Reproductive History Menstrual Age of Menarche: 13 Questionnaire PHQ-9 Over the last 2 weeks, how often have you been bothered by any of the following problems? 1. Little interest or pleasure in doing things: several days 2. Feeling down, depressed, or hopeless: several days 3. Trouble falling or staying asleep, or sleeping too much: several days 4. Feeling tired or having little energy: more than half the days 5. Poor appetite or overeating: not at all 6. Feeling bad about yourself - or that you are a failure or have let yourself or your family down: several days 7. Trouble concentrating on things, such as reading the newspaper or watching television: not at all 8. Moving or speaking so slowly that other people could have noticed. Or the opposite - being so fidgety or restless that you have been moving around a lot more than usual: not at all 9. Thoughts that you would be better off or of hurting yourself in some way: not at all Total score: 6 Depression Screening Interpretation: Negative Depression Screening Done: Yes 20111 - PHQ-9 Billing: Yes Source: Developed by Drs. Jeromy Qureshi, Madonna Maldonado, Nilay Vidal and colleagues, with an educational mechelle from [employer]. Thrive Questionnaire Date Thrive assessed: 11/08/24 I am a: Patient What is your living situation today?: I have a steady place to live Within the past 12 months, did the food you bought not last and you didn't have the money to get more?: Never true Within the past 12 months, did you worry whether your food would run out before you got money to buy more?: Never true Do you have trouble paying for medicines?: No Do you have trouble getting transportation to medical appointments?: No Do you have trouble paying your heating and electricity bill?: No Do you have trouble taking care of your child, family member or friend?: No Do you have trouble with day-to-day activities such as bathing, preparing meals, shopping, managing finances, etc.?: No Are you currently unemployed and looking for a job?: No Are you interested in more education?: No Please select the resources that you would like help with: None Currently or been in a relationship where the following occur: No concerns reported THRIVE Score: 0 AUDIT C Alcohol Use Questionnaire (AUDIT-C) 1. How often do you have a drink containing alcohol?: Never 2. How many drinks containing alcohol do you have on a typical day when you are drinking?: 1 or 2 3. How often do you have six or more drinks on one occasion?: Never Total Score: 0 Score Reviewed/Action Taken: Yes CHAYO-7 AMB Questionnaire CHAYO-7 Date CHAYO - 7 assessed: 11/08/24 Feeling nervous, anxious, or on edge: 1 = Several days Not being able to stop or control worryin = Several days Worrying too much about different things: 1 = Several days Trouble relaxin = Several days Being so restless that it is hard to sit still: 0 = Not at all Becoming easily annoyed or irritable: 1 = Several days Feeling afraid as if something awful might happen: 1 = Several days Total CHAYO-7 score (0-4 normal; 5-9 mild; 10-14 moderate; 15-21 severe): 6 Source: Developed by Drs. Jeromy Qureshi, Madonna Maldonado, Nilay Vidal and colleagues, with an educational mechelle from [employer]. CHAYO-7 Assessment Billing CHAYO-7 Assessment Tool: CHAYO-7 Assessment 82420 Physical exam (Primary Care) Vital Signs: Last Vital Signs Pulse 76 11/08/24 14:28 BP 112/72 11/08/24 14:28 Pulse Ox 100 11/08/24 14:28 Oxygen Delivery Method Room Air 11/08/24 14:28 BMI result Body Mass Index 28.2 Tobacco/Smoking Status: Tobacco use Status Tobacco use date assessed 11/08/24 11/08/24 14:29 Patient Tobacco Use Status Never used Tobacco 11/08/24 14:29 e-Cigarette/Vaping Use Never Used 11/08/24 14:29 PHQ-9: PHQ-9 Score PHQ-9: Total score 6 11/08/24 14:29 Depression Screening Interpretation: Negative Thrive Assessment: Date of Thrive Assessment Date Thrive assessed 11/08/24 11/08/24 14:29 Currently or been in a relationship where the following occur: No concerns reported Coding Level of Care Code Est Pt Level 4 (05748) Est Pt Prev Care 18-39y(48793) Diagnoses Encounter for general adult medical examination with abnormal findings Z00.01 Pulmonary nodule R91.1 SCOTTY positive R76.8 Leukocytosis, unspecified type D72.829 Leukocytosis type: unspecified Family history of CLL (chronic lymphoid leukemia) Z80.6 Memory change R41.3 Additional Codes CHAYO-7 Assessment Billing - CHAYO-7 Assessment Tool: CHAYO-7 Assessment 96028 ([id number]) PHQ-9 - 89394 - PHQ-9 Billing: Yes ([id number]) Assessment & Plan Assessment & Plan (1) Encounter for general adult medical examination with abnormal findings: Code(s): Z00.01 - Encounter for general adult medical examination with abnormal findings Category: Medical (2) Pulmonary nodule: Code(s): R91.1 - Solitary pulmonary nodule Category: Medical (3) SCOTTY positive: Code(s): R76.8 - Other specified abnormal immunological findings in serum Category: Medical (4) Leukocytosis: Code(s): D72.829 - Elevated white blood cell count, unspecified Category: Medical Qualifiers: Leukocytosis type: unspecified Qualified Code(s): D72.829 - Elevated white blood cell count, unspecified (5) Family history of CLL (chronic lymphoid leukemia): Code(s): Z80.6 - Family history of leukemia Category: Medical (6) Memory change: Code(s): R41.3 - Other amnesia Category: Medical Plan Physical exam appointment - The patient is a 34-year-old female presenting for follow-up regarding potential autoimmune disease. She was in emergency room in September due to diarrhea, ended up having CT scan of chest and abdomen which showed incidental finding of lymph node in the lung Leading to pulmonary consultation. She has another CT scan scheduled with contrast to further evaluate She also had SCOTTY positive which led to rheumatology appointment however patient has not seen them as yet Appointment is coming up Concerned about memory changes which has been happening for the past few months Requesting Neurology referral Patient has a family history of CLL in grandmother and father Health Maintenance - OBGYN visit up to date as of April. - Referral to neurology for memory concerns. 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 - Does not report any job-related stress or exposures. Diagnostic results - Labs: Low positive autoantibody test results; elevated white blood cell count in September. - Imaging: Pending CT with contrast; Review of Systems - ENT: Reports ear fullness and pressure for a month - Neurological: Reports memory issues and difficulty with memorization - Gastrointestinal: Denies current symptoms of diarrhea, nausea, or vomiting - Skin: Denies rashes or skin problems - General: No fever no chills - Ear nose throat: No sore throat no hearing difficulty no ear pain - Musculoskeletal: No acute issues - Cardiovascular: No syncope, no chest pain, no palpitations - Gastrointestinal: No nausea vomiting or diarrhea - Endocrine: No polyuria polydipsia no heat intolerance - Genitourinary: No dysuria - Skin: No new complaints Physical Exam General: Cooperative, healthy appearing, comfortable, no acute distress Orientation: Patient oriented x3 Limitations: None Head: Normal to inspection Ears: Within normal limit visually, but patient reports feeling of fullness and pressure for about a month; slight inflammation noted right ear, no infection or wax Nose: Normal external nose present Face and sinus: Normal facial exam Eyes: Appearance normal, extraocular movement intact pupils reactive Neck: Normal visual inspection and supple Respiratory: Normal respiratory effort and able to speak in complete sentences. Clear to auscultation, no stridor Cardiovascular: S1 and S2 GI: Normal to inspection. Soft to palpation and nontender Skin: Turgor normal, no acute findings, no rashes or skin problems reported Neuro: Patient oriented x3, motor sensory intact, balance intact, tandem pass; patient reports memory concerns, referral to neurology suggested Extremities: Normal to inspection Patient Instructions - Take Advil for ear inflammation as needed. - Schedule and complete fasting lab work. - Follow through with pending CT with contrast. - Attend scheduled rheumatology and neurology appointments. - Monitor memory issues and report any worsening or new symptoms. Follow-up 1 year physical exam, lab order placed to be done fasting Orders: Orders Complete Blood Count Auto Diff Today D72.829 - Elevated white blood cell count, unspecified, R76.8 - Other specified abnormal immunological findings in serum, R91.1 - Solitary pulmonary nodule, Z00.01 - Encounter for general adult medical examination with abnormal findings, Z80.6 - Family history of leukemia Comprehensive Met. Panel Today D72.829 - Elevated white blood cell count, unspecified, R76.8 - Other specified abnormal immunological findings in serum, R91.1 - Solitary pulmonary nodule, Z00.01 - Encounter for general adult medical examination with abnormal findings, Z80.6 - Family history of leukemia Lipid Panel Today D72.829 - Elevated white blood cell count, unspecified, R76.8 - Other specified abnormal immunological findings in serum, R91.1 - Solitary pulmonary nodule, Z00.01 - Encounter for general adult medical examination with abnormal findings, Z80.6 - Family history of leukemia Vitamin D 25-OH (D2 and D3) Today D72.829 - Elevated white blood cell count, unspecified, R76.8 - Other specified abnormal immunological findings in serum, R91.1 - Solitary pulmonary nodule, Z00.01 - Encounter for general adult medical examination with abnormal findings, Z80.6 - Family history of leukemia TSH reflex Free T4 Today D72.829 - Elevated white blood cell count, unspecified, R76.8 - Other specified abnormal immunological findings in serum, R91.1 - Solitary pulmonary nodule, Z00.01 - Encounter for general adult medical examination with abnormal findings, Z80.6 - Family history of leukemia Referrals Neurology Referral R41.3 - Other amnesia
== END 2024-11-08 15:50 | disposition home or self-care (01) ==
PROVIDERS: PCP Internal Medicine; Visit Provider Internal Medicine
DX: Z00.01 Encounter for general adult medical examination with abnormal findings (principal); R91.1 Solitary pulmonary nodule; R76.8 Other specified abnormal immunological findings in serum; D72.829 Elevated white blood cell count, unspecified; Z80.6 Family history of leukemia; R41.3 Other amnesia

== ENCOUNTER → 2024-11-08 14:22 | Outpatient (BNVA) | payer BC, SELFPAY | PROVIDERS: PCP Internal Medicine; Visit Provider Internal Medicine | DX: Z00.01 Encounter for general adult medical examination with abnormal findings (principal); R91.1 Solitary pulmonary nodule; R76.8 Other specified abnormal immunological findings in serum; D72.829 Elevated white blood cell count, unspecified; R41.3 Other amnesia; Z80.6 Family history of leukemia | CPT/HCPCS: 96127 ==

== ENCOUNTER 2024-11-13 09:51 | Outpatient (REF) | payer BC, SELFPAY ==
[2024-11-13 13:40] LABS: MANUAL DIFF FLAG NO
[2024-11-13 13:43] LABS: Basophils Absolute Auto 0.1 X10*3/uL (0.0-0.2); Basophils Percent Auto 0.6 % (0-2); Eosinophils Absolute Auto 0.4 X10*3/uL (0.0-0.4); Eosinophils Percent Auto 4.4 % (0-4); Hematocrit 41.7 % (37.0-47.0); Imm Gran Abs Auto 0.05 X10*3/uL (0.00-0.03); Imm Gran Pct Auto 0.6 % (0.0-0.4); Lymphocytes Absolute Auto 3.6 X10*3/uL (1.2-4.9); Mean Corpuscular HGB Conc 33.6 g/dl (31.0-35.0); Mean Corpuscular Hemoglobin 29.6 pg (27.0-33.0); Mean Corpuscular Volume 88.2 fL (80.0-98.0); Mean Platelet Volume 8.5 fL (9.4-12.3); Monocytes Absolute Auto 0.5 X10*3/uL (0.1-1.2); Monocytes Percent Auto 5.3 % (2-11); Neutrophils Absolute Auto 4.3 x10*3/uL (2.0-8.3); Neutrophils Percent Auto 48.1 % (45-73); Platelet Count 302 X10*3/uL (160-400); Red Blood Count 4.73 X10*6/uL (4.20-5.50); Red Cell Distribution Width 12.1 % (11.0-16.0); White Blood Count 8.8 X10*3/uL (4.8-10.8)
[2024-11-13 14:24] LABS: Alanine Aminotransferase 26 U/L (0-31); Albumin Level 4.4 g/dL (3.5-5.0); Alkaline Phosphatase 64 U/L (39-117); Anion Gap 10 (12-20); Aspartate Amino Transferase 22 U/L (5-31); Bilirubin Total 0.3 mg/dL (0.0-1.0); Blood Urea Nitrogen 9 mg/dL (9-16); Calcium 8.9 mg/dL (8.4-10.2); Carbon Dioxide 27 mmol/L (22-29); Chloride 108 mmol/L (96-108); Cholesterol 193 mg/dL (<200); Estimated Glomerular Filt Rate > 60; Glucose Random 91 mg/dL (60-115); HDL Cholesterol 39 mg/dL (>40); LDL Cholesterol Calculated 124 mg/dL (<100); Potassium 3.9 mmol/L (3.3-5.1); Sodium 141 mmol/L (135-145); Total Protein 7.2 g/dL (6.5-8.0); Triglycerides 153 mg/dL (<150)
[2024-11-18 10:54] LABS: Vitamin D 25-OH, D2 <4 ng/mL; Vitamin D 25-OH, D3 42 ng/mL; Vitamin D 25-OH, Total 42 ng/mL (30-100)
== END 2024-11-13 09:52 | disposition home or self-care (01) ==
LOC: HO.HMGCLDS 09:51
PROVIDERS: PCP Internal Medicine; Visit Provider Internal Medicine
DX: Z00.01 Encounter for general adult medical examination with abnormal findings (principal); R91.1 Solitary pulmonary nodule; R76.8 Other specified abnormal immunological findings in serum; D72.829 Elevated white blood cell count, unspecified; Z80.6 Family history of leukemia
CPT/HCPCS: 36415; 80053; 80061; 82306; 84443; 85025

== ENCOUNTER 2024-11-24 09:40 | Outpatient (REF) | payer BC, SELFPAY ==
--- NOTE | ~2024-11-24 | CT_ITS ---
CLINICAL HISTORY: R59.0 - Localized enlarged lymph nodes CT chest with contrast Comparison: CT/SR - CT CHEST WO IV CON - 10/09/24 12:53 EST Findings: The heart size is normal. The visualized thyroid is within normal limits. Mild haziness within the mediastinum with nodularity anteriorly. Nonspecific. This may reflect residual or reactivated thymic tissue. No axillary adenopathy. The ovoid, smoothly marginated mass centered within the medial most aspect of the right middle lobe measures proximally 3.0 x 2.5 x 1.9 cm, versus 2.8 x 2.4 times 1.9 cm. Hounsfield unit measurements on the noncontrast study from October 11, 2024 are approximately 40. Following administration of contrast on today's study, Hounsfield unit measurements are approximately 105. This lesion abuts the central airways and may be amenable to transbronchial sampling. No effusion. No additional lesion. Visualized upper abdomen is unremarkable. No suspicious bone lesion. Impression: Stable to minimally increased smoothly marginated ovoid mass centered within the medial most aspect of the right middle lobe as detailed above. This appears to exhibit postcontrast enhancement. The lesion abuts the hilar airways and would likely be amenable to transbronchial sampling if clinically indicated, otherwise PET-CT could be obtained to evaluate for activity. Hazy and slightly nodular anterior mediastinal soft tissue likely reflective of reactive or residual thymic tissue. This document has been electronically signed by: Mando Mack MD on 11/24/2024 11:43:10
[2024-11-24] MEDS: iohexoL 350 MG/ML 100 ML INFUS..BTL IV (11:02)
== END 2024-11-24 09:41 | disposition home or self-care (01) ==
LOC: HO.CT 09:40
PROVIDERS: PCP Internal Medicine; Visit Provider Nurse Practitioner Family
DX: R59.0 Localized enlarged lymph nodes (principal); R91.1 Solitary pulmonary nodule; R41.89 Other symptoms and signs involving cognitive functions and awareness; F41.1 Generalized anxiety disorder
CPT/HCPCS: 71260; Q9967

== ENCOUNTER → 2024-11-24 09:42 | Outpatient (BNV) | payer BC, SELFPAY | PROVIDERS: PCP Internal Medicine; Visit Provider Radiology Vascular & Interventional Radiology | DX: R59.0 Localized enlarged lymph nodes (principal) | CPT/HCPCS: 71260 ==

== ENCOUNTER 2024-11-24 14:51 | Outpatient (AMB) | payer BC, SELFPAY ==
[2024-11-24 14:54] VITALS: BMI 28.1
--- NOTE | 2024-11-24 14:54 | MHC.OFFVIS ---
Vital Signs 11/24/24 14:54 Height 4 ft 9 in Weight 130 lb BMI 28.1 Intake Visit Reasons: 11/10 LVM+Let INP-Other Amnesia Intake Note: Patient presents for amnesia. Patient having a mix of both. Allergies No Known Allergies Allergy (Verified 11/24/24 14:55) Medication List - Last Reconciled 11/24/24 by Blanka Bailey MD escitalopram oxalate 5 mg PO DAILY HPI Comments Details: 34y/o female comes for evaluation of cognitive changes for past 2 years . she feels like her brain is foggy and is unable to focus more noticeable in the past 2 years. 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 she has h/o anxiety and in 2020 she went through a divorce ( which was unexpected ) which worsened her anxiety. she feels she is very sensitive and emotional and has difficulty with transitions. she has never seen a psychiatrist or a psychologist. 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 she has 3 younger sisters and are doing well Her maternal Grandfather had dementia - likely vascular . No known head injury [facility] Medical History Anxiety Surgical History [place] teeth removed Hx of tonsillectomy H/O left wrist surgery Family History Mother Hypothyroid Father Cancer Mental health disorder Social History Housing: House Alcohol intake: never Patient Tobacco Use Status: Never used Tobacco e-Cigarette/Vaping Use: Never Used Substance Use Type: Marijuana service: No Current occupational status: employed Cognitive needs: No Hearing needs: No Vision needs: Yes Female Reproductive History Menstrual Age of Menarche: 13 Physical Exam Vital Signs: BMI result Body Mass Index 28.1 Const General: cooperative, healthy appearing, comfortable and anxious Nutritional Appearance: average body habitus Orientation/consciousness: patient oriented x3 Eyes Pupils: Equal, round and reactive pupils present Neuro General: patient oriented x3, gait normal, tone normal, moves all extremities and no focal motor deficits Cranial nerves: Yes Facial sensation intact/muscles of mastication intact, Yes Equal, round and reactive pupils present, Yes Bilaterally intact EOM present, Yes Nystagmus not present and Yes Normal facial strength present Cognition (Neuro): normal cognition Gait exam (Neuro): Normal gait present Motor exam (neuro): 5/5 motor strength present throughout and Normal motor muscle tone present throughout Deep tendon reflexes (DTR's): Right triceps reflex intensity grade: 3+, Left triceps reflex intensity grade: 3+, Rt Biceps (C5, C6): 3+, Left biceps reflex intensity grade: 3+, Right brachioradialis reflex intensity grade: 3+, Left brachioradialis reflex intensity grade: 3+, Right patellar reflex intensity grade: 3+ and Left patellar reflex intensity grade: 3+ Coordination: [id number] test normal Psych Affect: Anxious affect present and Depressed mood present Attitude: cooperative Thought content: Normal thought content present Insight: Good insight present (Psych) Orientation What is the (year) (season) (date) (day) (month)?: year, season, date, day and month Where are we (state) (county) (town or city) (hospital) (floor)?: state, county, town or city, hospital/clinic and floor Registration Name of 3 unrelated objects clearly and slowly, then ask patient to repeat all 3 of them. (1st repeat determines score. Make sure they can repeat all three): object 1, object 2 and object 3 Attention & Calculation (CHOOSE ONE) Spell WORLD backwards (DLROW): 5 letters Recall Ask patient to repeat the 3 items from question #3.: object 1 and object 2 Language Show patient a wristwatch & ask what it is. Repeat for pencil.: watch and pencil Ask the patient to repeat the phrase 'No ifs, ands, or buts' after you.: correct Ask the patient to 'take a piece of paper with their right hand' 'fold paper in half' 'place paper on floor': take paper in right hand, fold paper in half and place paper on floor Print the sentence 'CLOSE YOUR EYES' on a piece. If patient actually closes eyes then score.: followed written direction Give patient a blank piece of paper & ask to write a sentence. Score if it contains a noun & verb.: sentence contains subject and verb Ask patient to copy figure of intersecting pentagons exactly. Score if all 10 angles & 2 intersects are included.: all 10 angles present & 2 are intersected Score Score: 29 Assessment & Plan Assessment & Plan (1) Cognitive change: Comment: likely mood related Code(s): R41.89 - Other symptoms and signs involving cognitive functions and awareness Category: Medical (2) Anxiety, generalized: Code(s): F41.1 - Generalized anxiety disorder Category: Medical Plan MRI brain Check Vit B 12 cognitive therapy will trial her on escitalopram 5 mg qd for anxiety Consider.Neuropsyhc eval Orders: Orders Vitamin B12 and Folate Today R41.89 - Other symptoms and signs involving cognitive functions and awareness Erythrocyte Sedimentation Rate Today R41.89 - Other symptoms and signs involving cognitive functions and awareness MR head/brain wo con Today R41.89 - Other symptoms and signs involving cognitive functions and awareness Referrals Speech and Hearing Referral R41.89 - Other symptoms and signs involving cognitive functions and awareness Medications: New escitalopram oxalate 5 mg PO DAILY 30 tabs 6RF Coding Level of Care Code New Pt Level 4 (50031) Complex EM visit Add On G2211 Diagnoses Cognitive change R41.89 Anxiety, generalized F41.1
== END 2024-11-24 15:53 | disposition home or self-care (01) ==
PROVIDERS: PCP Internal Medicine; Visit Provider Psychiatry & Neurology Neurology
DX: R41.89 Other symptoms and signs involving cognitive functions and awareness (principal); F41.1 Generalized anxiety disorder
CPT/HCPCS: 99204

== ENCOUNTER 2024-12-14 12:24 | Day surgery (SDC) | payer BC, SELFPAY ==
[2024-12-12 14:03] VITALS: BMI 27.9
--- NOTE | 2024-12-12 14:37 | HO.ANESPROP2 ---
Documented by User: Kianna Arango NP 12/12/24 14:39 HPI - Anesthesia Eval Consult details Narrative: 34yo F for Endoscopic Bronchial Ultrasound PMFSH Active Problems Active Problems: All Active Problems Memory change (Acute) Family history of CLL (chronic lymphoid leukemia) (Acute) Leukocytosis (Acute) SCOTTY positive (Acute) Pulmonary nodule (Acute) Mediastinal lymphadenopathy (Acute) Abnormal CT scan, chest (Acute) Liver lesion (Acute) Acute gastroenteritis (Acute) Hospital discharge follow-up (Acute) Immunizations incomplete (Acute) Relies on partner's vasectomy for primary method of contraception (Acute) Ear fullness (Acute) Skin cyst (Acute) B12 deficiency (Acute) Overweight (BMI 25.0-29.9) (Acute) Tiredness (Acute) Anxiety, generalized (Acute) Encounter for general adult medical examination with abnormal findings (Acute) Upper respiratory tract infection (Acute) Cervical cancer screening (Acute) Surveillance for control, oral contraceptives (Acute) Well woman exam with routine gynecological exam (Acute) Cognitive change (Acute) Past Medical History Medical History Mediastinal lymphadenopathy Pulmonary nodule Cognitive change Anxiety Family History Family History Mother Hypothyroid Father Cancer Mental health disorder Surgical History Surgical History [place] teeth removed Hx of tonsillectomy H/O left wrist surgery Social History Social History (Updated 12/14/24 @ 14:05 by Shirlene Rodríguez MD) Housing: House Alcohol intake: never Patient Tobacco Use Status: Never used Tobacco e-Cigarette/Vaping Use: Never Used Substance Use Type: Marijuana service: No Current occupational status: employed Cognitive needs: No Hearing needs: No Vision needs: Yes Meds Allergies Allergy/AdvReac Type Severity Reaction Status Date / Time No Known Allergies Allergy Verified 11/24/24 14:55 Exam Height,Weight and Vital Signs: Height 4 ft 9 in Weight 58.513 kg Pertinent Lab Results Pertinent Lab Results: Laboratory Tests 11/13/24 09:54 WBC 8.8 Hgb 14.0 Hct 41.7 Plt Count 302 D Sodium 141 Potassium 3.9 Chloride 108 Carbon Dioxide 27 BUN 9 Creatinine 0.74 Narrative Narrative: Chest CT 11/2024 Impression: Stable to minimally increased smoothly marginated ovoid mass centered within the medial most aspect of the right middle lobe as detailed above. This appears to exhibit postcontrast enhancement. The lesion abuts the hilar airways and would likely be amenable to transbronchial sampling if clinically indicated, otherwise PET-CT could be obtained to evaluate for activity. Hazy and slightly nodular anterior mediastinal soft tissue likely reflective of reactive or residual thymic tissue. Assessment and Plan Assessment Anesthesia Assessment: Chart Reviewed Documented by User: Shirlene Rodríguez MD 12/14/24 14:08 [facility] Past Medical History Medical History Mediastinal lymphadenopathy Pulmonary nodule Cognitive change Anxiety Family History Family History Mother Hypothyroid Father Cancer Mental health disorder Family history of problems with anesthesia: No Surgical History Surgical History [place] teeth removed Hx of tonsillectomy H/O left wrist surgery History of Problems with Anesthesia: No Social History Social History (Updated 12/14/24 @ 14:05 by Shirlene Rodríguez MD) Housing: House Alcohol intake: never Patient Tobacco Use Status: Never used Tobacco e-Cigarette/Vaping Use: Never Used Substance Use Type: Marijuana service: No Current occupational status: employed Cognitive needs: No Hearing needs: No Vision needs: Yes Meds Allergies Allergy/AdvReac Type Severity Reaction Status Date / Time No Known Allergies Allergy Verified 11/24/24 14:55 Exam Height,Weight and Vital Signs: Height 4 ft 9 in Weight 58.513 kg Vital Signs Temp Pulse Resp BP Pulse Ox O2 Del Method 12/14/24 13:34 98.7 F 79 20 117/79 97 Room Air Pertinent Lab Results Pertinent Lab Results: Vital Signs Temp Pulse Resp BP Pulse Ox O2 Del Method 12/14/24 13:34 98.7 F 79 20 117/79 97 Room Air Laboratory Tests 11/13/24 09:54 WBC 8.8 Hgb 14.0 Hct 41.7 Plt Count 302 D Sodium 141 Potassium 3.9 Chloride 108 Carbon Dioxide 27 BUN 9 Creatinine 0.74 Urine HCG negative Airway Mallampati Class: II TM Dist: >3cm Neck ROM: Full Loose/Missing/Broken Teeth: Yes ([place] teeth extracted) Heart: RRR Lungs: CTAB Assessment and Plan Assessment Anesthesia Assessment: Anesthesia Plan Discussed and Chart Reviewed Final Anesthetic Review Family History of Problems with Anesthesia: No History of Problems with Anesthesia: No NPO: Yes ASA Class: II Final Preanesthetic Review: No Changes in Pt Med Stat, Meds/Allgs Chart Reviewed, Consent Obtained/Reviewed and Anes Risks/Benef Reviewed Patient Risk: Intermediate Procedure Risk: Low Assessment/Block/Sedation in SS: Assess/Block/Sedation-SS Anesthetic Plan Anesthetic Plan: GA Disposition: Standard PACU
[2024-12-14 13:34] VITALS: BP 117/79; PULSE 79; RESP 20; TEMP 37.1; O2SAT 97
[2024-12-14] MEDS: Lactated Ringers 1,000 ML 100 ML IVCONT (13:43)
[2024-12-14 13:45] LABS: UPreg QC Valid YES; Urine Pregnancy NEGATIVE (NEGATIVE)
--- NOTE | 2024-12-14 13:55 | P.HPSUR_ITS ---
Pre-Procedural Eval Section A - 24 Hr Update-Section A only Date of Service: 12/14/24 The patient is an INPATIENT: No Changes since office visit: Yes Patient answered all questions; No Cold of Flu in the past 2 weeks, No New Medical Problems and No Changes in Medication The patient has been examined within 24 hours of the surgical procedure. The History & Physical has been completed within 30 days and I have reviewed it.: No Section B - Complete if H&P > 30 days Chief Complaint: Solitary pulmonary nodule Relevant Family History (Specify if Yes): No Relevant Social History: None Present Medications: see Short Stay Collaborative assessment History of Previous Operations: No relevant previous surgery Allergies: Allergies Allergy/AdvReac Type Severity Reaction Status Date / Time No Known Allergies Allergy Verified 11/24/24 14:55 Review of Systems Sugical H&P ROS: Negative: Constitution, Cardiovascular, Respiratory, Neurological, Psychiatric, Hem-Onc, Allergic/Immunologic, Gastrointestinal, Genitourinary, Musculoskeletal, Integumentary, Endocrine and Eyes/Ears/Nose/Throat Exam Surgical H&P Exam: Normal: HEENT, Normal: Heart, Normal: Lungs, Normal: E xtremities, Normal: Abdomen, Normal: Skin and Normal: Neurological Plan Diagnosis/Plan: Unchanged I have reviewed the history and physical and performed a pertinent physical examination on my patient. No changes have occurred unless specified. Time Spent With Patient Time: Total time managing care of this patient today ____ minutes.
--- NOTE | 2024-12-14 14:52 | PM.OP ---
Brief Operative Note Date of Service: 12/14/24 Pre-op diagnosis: Solitary nodule Post-op diagnosis: same Procedure: EBUS bronchoscope advanced through the ET tube and to station 12 R. Normal bronchial mucosa noted. No endobronchial lesions noted. EBUS guided biopsy of station 12 performed with 4 separate passes and biopsy material sent for further pathologic testing. Biopsy site observed and no active hemorrhage noted. Patient tolerated procedure well and was returned to PACU in stable condition. Surgeon: Phill Spencer MD Anesthesia: GETA Was an Mobile Home Lot Utility Worker used for this Procedure?: No Estimated blood loss (mL): 0 Condition: stable Disposition: PACU
[2024-12-14 14:59] VITALS: BP 110/71; PULSE 88; RESP 16; TEMP 36.6; O2SAT 98
[2024-12-14 15:04] VITALS: BP 118/71; PULSE 79; RESP 16; O2SAT 99
[2024-12-14 15:09] VITALS: BP 111/66; PULSE 80; RESP 16; O2SAT 100
[2024-12-14 15:14] VITALS: BP 116/81; PULSE 74; RESP 20; O2SAT 100
[2024-12-14 15:29] VITALS: BP 119/70; PULSE 79; RESP 20; TEMP 36.1; O2SAT 100
== END 2024-12-14 15:36 | disposition home or self-care (01) ==
PROVIDERS: Nurse Practitioner; Pathology Anatomic Pathology & Clinical Pathology; PCP Internal Medicine; Visit Provider Internal Medicine Pulmonary Disease
PROC: (CPT 31652; principal; 2024-12-14 13:30)
DX: R91.1 Solitary pulmonary nodule (principal); R59.0 Localized enlarged lymph nodes; D14.31 Benign neoplasm of right bronchus and lung; Z80.6 Family history of leukemia; F41.9 Anxiety disorder, unspecified; Z77.22 Contact with and (suspected) exposure to environmental tobacco smoke (acute) (chronic)
CPT/HCPCS: 31652; 81025; 88172; 88173; 88177; 88184; 88185; 88305; J0171; J0330; J1100; J2003; J2250; J2405; J2704; J3010

== ENCOUNTER → 2024-12-14 12:24 | Outpatient (BNV) | payer BC, SELFPAY | PROVIDERS: PCP Internal Medicine; Visit Provider Internal Medicine Pulmonary Disease | DX: R91.1 Solitary pulmonary nodule (principal) | CPT/HCPCS: 31652 ==

== ENCOUNTER → 2024-12-28 08:19 | Outpatient (BNVA) | payer BC, SELFPAY | PROVIDERS: PCP Internal Medicine ==

== ENCOUNTER 2025-01-09 13:34 | Outpatient (AMB) | payer BC, SELFPAY ==
--- NOTE | 2025-01-09 13:35 | A.OFFVIS_ITS ---
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 She was initially referred by ED after incidental finding on CT chest without contrast revealing 2.6 cm ovoid shaped lesion near right pulmonary hilum with associated lymphadenopathy. She was sent for chest CT with contrast to better differentiate structures and sent for EBUS with Dr. Spencer on 12/14/24. Today she presents to review results. At this time, she denies any respiratory symptoms. Of note, prior rheumatologic workup revealed +SCOTTY and will have rheumatology consult next month. [facility] Medical History Mediastinal lymphadenopathy Pulmonary nodule Cognitive change Anxiety Surgical History [place] teeth removed Hx of tonsillectomy H/O left wrist surgery Family History Mother Hypothyroid Father Cancer Mental health disorder Social History Housing: House Alcohol intake: never Patient Tobacco Use Status: Never used Tobacco e-Cigarette/Vaping Use: Never Used Substance Use Type: Marijuana service: No Current occupational status: employed Cognitive needs: No Hearing needs: No Vision needs: Yes Female Reproductive History Menstrual Age of Menarche: 13 Review of Systems Const Denies chills, Denies excessive sweating, Denies fever(s), Denies headache(s) and Denies night sweats Eyes Denies dry eyes, Denies irritation and Denies itchy eyes ENT Reports Normal hearing present, Denies headache(s), Denies nasal congestion, Denies nasal discharge, Denies post nasal drip and Denies sore throat Card Denies chest pain, Denies chest pain at rest, Denies chest pain with activity, Denies claudication, Denies leg edema, Denies dyspnea, Denies dyspnea on exertion, Denies orthopnea and Denies paroxysmal nocturnal dyspnea Resp Denies chest congestion, Denies cough, Denies excessive phlegm production, Denies pain on inspiration, Denies pain with cough, Denies dyspnea, Denies dyspnea on exertion, Denies stridor and Denies wheezing Musc Denies myalgias Neuro Reports Normal hearing present and Denies headache(s) Endo Denies excessive sweating Alfonzo/Lymph Denies lymphadenopathy Aller/Immun Denies itchy eyes, Denies seasonal rhinorrhea and Denies wheezing Physical Exam Vital Signs: Last Vital Signs Pulse 72 01/09/25 13:39 BP 102/60 01/09/25 13:39 Pulse Ox 99 01/09/25 13:39 Oxygen Delivery Method Room Air 01/09/25 13:39 BMI result Body Mass Index 28.4 Const General: cooperative, healthy appearing, comfortable, no acute distress, well developed and alert Orientation/consciousness: patient oriented x3 Limitations: no limitations HEENT Head: Yes normal to inspection, Yes normocephalic and Yes atraumatic Ears: hearing grossly normal bilaterally and external ears normal Eyes General: appearance normal, both eyes and all related structures Eyelids: Yes eyelids normal Sclerae: sclerae normal EOM: EOMs intact bilaterally Neck Neck: Yes normal visual inspection and Yes no lymphadenopathy Lymphatic: no lymphadenopathy noted Chest Chest palpation & inspection: normal inspection of the chest Resp Effort & Inspection: normal respiratory effort, able to speak in complete sentences, no audible wheezes, no cough, no stridor, not tachypneic, no tripod positioning and no use of accessory muscles Auscultation: clear to auscultation bilaterally Cardio Jugular venous distension: no JVD Rate: regular rate Rhythm: regular rhythm Skin Other: warm, dry General skin exam: no rashes or lesions noted Neuro General: patient oriented x3 Cranial nerves: Yes Normal hearing present Cognition (Neuro): normal cognition Gait exam (Neuro): Normal gait present Extrem General: Yes normal to inspection, Yes capillary refill normal, Yes no clubbing, cyanosis or edema and Yes no pedal edema Psych Appearance: grossly normal and well kempt Speech and movement: Normal speech and movement present and Clear speech present Affect: normal affect Attitude: cooperative Thought process: Normal thought process present Thought content: Normal thought content present Insight: Good insight present (Psych) Judgement: Good judgement present (Psych) Assessment & Plan Assessment & Plan (1) Pulmonary nodule: Code(s): R91.1 - Solitary pulmonary nodule Category: Medical (2) Mediastinal lymphadenopathy: Code(s): R59.0 - Localized enlarged lymph nodes Category: Medical Plan Reviewed EBUS results which revealed benign bronchial epithelial cells without features of metastatic disease or diagnostic features of a lymphoproliferative disorder, concurrent flow cytometry is negative. 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 All questions were answered and patient is in agreement of plan. Will follow up to review results or sooner if needed. Orders: Orders Blood Urea Nitrogen Today Z01.812 - Encounter for preprocedural laboratory examination Creatinine Today Z01.812 - Encounter for preprocedural laboratory examination CT chest w IV con 5 Months R59.0 - Localized enlarged lymph nodes, R91.1 - Solitary pulmonary nodule Coding Level of Care Code Est Pt Level 4 (35837) Diagnoses Pulmonary nodule R91.1 Mediastinal lymphadenopathy R59.0
[2025-01-09 13:39] VITALS: BP 102/60; PULSE 72; O2SAT 99; BMI 28.4
== END 2025-01-09 13:53 | disposition home or self-care (01) ==
PROVIDERS: PCP Internal Medicine; Visit Provider Nurse Practitioner Family
DX: R91.1 Solitary pulmonary nodule (principal); R59.0 Localized enlarged lymph nodes
CPT/HCPCS: 99214

== ENCOUNTER 2025-02-14 10:31 | Outpatient (AMB) | payer BC, SELFPAY ==
[2025-02-14 11:03] VITALS: BP 150/90; PULSE 84; O2SAT 97; BMI 28.4
--- NOTE | 2025-02-14 11:03 | MHC.OFFVIS ---
Vital Signs 02/14/25 11:03 Height 4 ft 8 in Weight 126 lb 12.253 oz BMI 28.4 BP 150/90 H Blood Pressure Location Lt brachial Position Sitting Pulse 84 Pulse Source Pulse Oximeter Pulse Oximetry (%) 97 Oxygen Delivery Method Room Air Intake Visit Reasons: abnormal Lab/internal ref Intake Note: Patients presents today to review abnormal labs. Allergies No Known Allergies Allergy (Verified 02/14/25 11:06) HPI HPI abnormal Lab/internal ref: Details: SCOTTY 1:40 10/2024 workup ordered in setting of mass in lung. EBUS 11/2024 results which revealed benign bronchial epithelial cells without features of metastatic disease or diagnostic features of a lymphoproliferative disorder, concurrent flow cytometry is negative. 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 She follows with pulmonology team at [facility]. CT chest findings of lung mass were incidental in setting of her ER visit in 10/11/2024, where she presented with diarrhea. She was given a GI cocktail then she experienced vomiting and further diarrhea. She had CT abdomen/pelvis, which revealed no acute pathology. She had chest x-ray, which revealed right hilar opacity further worked up with CT chest without contrast and CT chest withIV contrast revealing a smoothly marginated ovoid mass centered within the medial most aspect of the right middle lobe. She had transbronchial biopsy. She denies fevers, dyspnea, pleurisy, oral ulcers, night sweats, hair loss, rash, Raynaud's phenomenon, joint pain, joint swelling, dry mouth, urinary symptoms. +dry eyes, attributed to seasonal allergies. She is currently experiencing dry eyes and it had occurred last year during the spring as well. Overall, she feels well. Mother has arthritis. 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 She had tonsillectomy and adenectomy in childhood. [facility] Medical History Mediastinal lymphadenopathy Pulmonary nodule Cognitive change Anxiety Surgical History [place] teeth removed Hx of tonsillectomy H/O left wrist surgery Family History Mother Hypothyroid Father Cancer Mental health disorder Social History Housing: House Alcohol intake: never Patient Tobacco Use Status: Never used Tobacco e-Cigarette/Vaping Use: Never Used Substance Use Type: Marijuana service: No Current occupational status: employed Cognitive needs: No Hearing needs: No Vision needs: Yes Female Reproductive History Menstrual Age of Menarche: 13 Review of Systems Const All systems reviewed & are unremarkable except as noted in HPI and below Physical Exam Vital Signs: Last Vital Signs Pulse 84 02/14/25 11:03 BP 150/90 H 02/14/25 11:03 Pulse Ox 97 02/14/25 11:03 Oxygen Delivery Method Room Air 02/14/25 11:03 BMI result Body Mass Index 28.4 Const Other: General: Comfortable CVS: RRR Respiratory: clear to auscultation bilaterally. Good respiratory effort Skin: No lesions seen, digital ulceration, discoloration of digits. MSK: No joint tenderness. No synovitis of any joint. Normal range of motion of upper extremity and lower extremity. Assessment & Plan Assessment & Plan (1) SCOTTY positive: Comment: Borderline positive 01:40 10/2024. She does not have cytopenias or kidney dysfunction on recent labs. At this time she does not have any symptoms or signs suggestive of systemic connective tissue disease. Code(s): R76.8 - Other specified abnormal immunological findings in serum Category: Medical Plan: No further rheumatological workup is warranted at this time Patient was educated about signs and symptoms related to connective tissue disease and will return to clinic if needed in the future Coding Level of Care Code New Pt Level 4 (19433) Diagnoses SCOTTY positive R76.8
== END 2025-02-14 11:57 | disposition home or self-care (01) ==
LOC: HO.RHES 10:32
PROVIDERS: PCP Internal Medicine; Visit Provider Internal Medicine Rheumatology
DX: R76.8 Other specified abnormal immunological findings in serum (principal)
CPT/HCPCS: 99204

== ENCOUNTER → 2025-02-14 10:31 | Outpatient (BNVA) | payer BC, SELFPAY | PROVIDERS: PCP Internal Medicine; Visit Provider Internal Medicine Rheumatology ==

== ENCOUNTER 2025-03-14 12:46 | Outpatient (RCR) | payer BC, SELFPAY ==
--- NOTE | 2025-03-19 08:39 | MHC.SP.ADU ---
Referring provider: Dr. Bailey Reason for Referral: Speech Cognitive Assessment Type of Treatment: 67053 Standardized Cognitive Performance Testing, per hour Date of Plan of Treatment: 03/14/25 Onset of Symptoms/Illness: 03/14/23 Date Treatment Started: 03/14/25 Medical Diagnosis: Other symptoms and signs involving cognitive functions and awareness Primary Speech Language Diagnosis: Other Secondary Speech Language Diagnosis: History Mariana Marrero is a 35 year old woman who was sent by her Neurologist, Dr. Bailey for Speech assessment due to concerns about changes in her memory and attention. Mariana reports that she has been concerned about problems she has had with brain fog and spaciness as well as being concerned she may have underlying ADD. Mariana reports no history of concussion or any other event, apart from a sudden and traumatic ending of a marriage about two years ago. Mariana noted that she has had counselling support to cope with this event, but none the less describes her self as having increased emotionality which she feels is at the root of her difficulties. She did note that her life has become much more stable, she is in a new relationship and has moved to a new residence, all of which has helped her to move on. She further reported that she saw a specialist regarding diagnosis of AD(H)D after being referred by Dr. Bailey, who did not believe she had the diagnosis, and attributed her symptoms to her recent trauma/PTSD. 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 She attended a Religion/Bible College in [place] and earned a BA in Communication and Divinity Studies, and initially sought to become a Computer Numerical Control Programmer, but through her work at a [employer] became interested in child language development. 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 She is close to her parents who also live in [place], where she grew up. She enjoys acting and performing, which she feels has helped her learn how to understand emotional responses and social behavior. At one point she referred to herself as 'neuro a-typical, and reported that she has suspected she has autism spectrum behaviors which she believes other family members exhibit. When she was asked to elaborate, she stated that she felt socially awkward in school and often miss-read social contexts and did not know how to act. She has not been diagnosed with ASD, nor been seen by a Neuropsychologist, who might assess this. Medical History: Anxiety/Depression, history of ear infections. 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 Past Speech Language Therapy: She is an AIR PURIFIER SERVICER/A Other Therapies Seen in Current Calendar Year: None Reported Speech, Language, Cognition difficulties: Attention, Memory Comments: Mariana reported concerns about her attention skills and memory for information. Quality of Life: Excellent Patient Stated Goal of Speech-Language Therapy: Assess for indication/recommendation for Speech/Language based Cognitive Therapy Assessment Speech Production: Articulate Clinical Impression: Intact Observations: Mariana presented as highly articulate, self aware, and able to communicate clearly. Informal Voice Assessment: Voice Loudness: Normal Voice Nasal Resonance: Voice Oral Resonance: Normal Voice Phonatory-based Quality: Normal Voice Pitch: Normal Clinical Impression: Intact Tests of Cognition: RBANS Clinical Impression: Intact Observations: RBANS The Repeatable Battery for the Assessment of Neuropsychological Status (RBANS) was used as a screening instrument to briefly assess Mariana?s cognitive skills. The RBANS-(Updated Form A) briefly assesses aspects of cognitive memory, language, and attention skills. The RBANS is considered a screening battery for cognitive function and is repeatable for the purpose of evaluating any changes in function. It is intended for use with adolescents and adults, ages 12 to 89 years. Composite domains assessed in this test are: Immediate Memory, Visuospatial/Constructional, Language, Attention, and Delayed Memory. Interpretation of test performance is based on normative data on individuals between ages 20-39. Mariana?s performance is summarized below: IMMEDIATE MEMORY: This domain assesses the individual's ability to remember information immediately after it is presented. For the ?List Learning? task, Mariana was read a list of 10 words and asked to repeat back as many words as she could. She was then read the same list four times. While her initial recall of the list was somewhat sparse, Mariana then recalled all of the words on the list for subsequent trials demonstrating strong immediate/short term memory skills. On the ?Story Memory? task, a brief story is read by the examiner two times, with the subject required to repeat back as much as they remember each time.. Mariana recalled almost all of the story on the first trial, then received a perfect score on the second, again demonstrating above average ability on the recall of verbally presented information. List Learning Total Score: 34 Scaled Score:12 Interpretation: Above Average Story Memory Total Score: 22 Scaled Score: 12 Interpretation: Above Average Immediate Memory Index Score: 112 Percentile: 79 Interpretation: Above Average VISUOSPATIAL/CONSTRUCTIONAL: This domain assesses the individual's ability to perceive spatial relations and to construct a spatially accurate copy of a drawing. During the Figure Copy task, Mariana was given an example of a specific figure to copy onto a piece of paper. Individuals are scored on both the drawing accuracy and placement of 10 different target items. Mariana?s drawing accurately represented the example drawing, demonstrating an above average score. On the Line Orientation task, an individual is asked to transpose line segments of an angle to a compass diagram above it and to label each segment. On this task, Mariana had more of a struggle, having difficulty accurately transposing the angles presented. Her score fell in the borderline average range, brining the score for this composite into the low average range. Figure Copy Total Score: 20 Scaled Score: 12 Interpretation: Above Average Line Orientation Total Score: 13 Percentile Group: 10-16 Interpretation: Borderline Average Visuospatial/Constructional Index Score: 92 Percentile: 42 Interpretation: Low Average LANGUAGE: This domain assesses the individual's ability to respond verbally to either naming or retrieving learned material. Mariana was asked to label various line drawings in a responsive naming task and then asked to name as many fruits and vegetables as he could in one minute in a Semantic Fluency task. Mariana accurately named 10 of 10 drawings, demonstrating an high average score., Mariana labeled 21 fruits and vegetables in one minute, which was at an expected rate and well organized, demonstrating an average score on this subtest, and an average score for this domain overall.. Picture Naming Total Score: 10 Percentile Group: 51-75 Interpretation: High average Semantic Fluency Total Score: 23 Scaled Score: 15 Interpretation: Above Average Language Index Score: 122 Percentile: 93 Interpretation: Above Average ATTENTION: This domain assesses the individual's capacity to remember and manipulate both visually and orally presented information in short-term memory storage Mariana was read aloud strings of numbers of varying lengths then asked to recall the numbers. Mariana accurately recalled strings of numbers up to 6 digits with no difficulty, but then had difficulty with 7-8 digits, overall demonstrating an average score. In the coding subtest, Mariana was asked to write numbers to their matching symbols as quickly and efficiently as possible within 90 seconds. Mariana worked carefully and accurately through this task, marking 61 symbols in allotted time, demonstrating an average score. For the overall ?Attention? domain score, Mariana fell in the a average range for her age group. Digit Span Total Score: 11 Scaled Score: 9 Interpretation: Average Coding Total Score: 61 Scaled Score: 11 Interpretation: Average Attention Index Score: 103 Percentile: 58 Interpretation: Average DELAYED MEMORY: This domain assesses the individual's anterograde memory capacity. Low scores indicate difficulties with recognition and retrieval of information from long-term memory stores. Mariana recalled eight of the ten words on the wordlist that was presented to her earlier in the testing, demonstrating a high average score on this task. When given a recognition task regarding words on the list (i.e. ?Was apple on the list??), Mariana answered these yes/no questions which appeared to aid her recall, and she demonstrated high average score on this subtest. On recalling the story that was read to her at the beginning of the assessment, Mariana recalled 12 out of 12 flower details of the story read to her earlier, demonstrating an high average score on this subtest. Finally, when asked to recall the figure she vonnie with relatively good accuracy at the beginning of the test, she was able to recall all of the elements of the drawing, yielding an above average score. In this domain overall, Mariana demonstrated high average ability for her age group. List Recall Total Score: 8 Percentile Group: 51-75 Interpretation: High Average List Recognition Total Score: 20 Percentile Group: 51-75 Interpretation: High Average Story Recall Total Score: 12 Scaled Score: 13 Interpretation: High Average Figure Recall Total Score: 20 Scaled Score: 15 Interpretation: Above Average Delayed Memory Index Score: 112 Percentile: 79 Interpretation: High Average The Total Test Score on the RBANS represents a summation of the individual index scores across five cognitive domains, providing an overall measure of a person's cognitive functioning, with a higher score indicating better cognitive performance; a mean score of 100 is considered average, and a standard deviation of 15 is used to interpret the severity of any cognitive impairment based on the individual's score relative to the norm. On the total test, Mariana demonstrated a high average score overall. TOTAL TEST: Sum of Index Scores: 520 Total Scale Score: 104 Percentile: 61 Interpretation: High Average Summary/Conclusions: Mariana generally presents with skills in the average to high average range for her age group. Impressions and Recommendations Summary: Mariana was referred today for this assessment from her Neurologist with an unusual complaint of decreased cognitive skills attributed to a traumatic event in her life. Mariana throughout this evaluation demonstrated very good personal insight and coping skills, despite the struggles she has had in the last few years. On testing today, she demonstrated average to high average skills in all aspects of short term auditory memory, visual spatial skills, language, attention and delayed memory. Mariana does appear to be seeking a better understanding of herself and her potential. With regard to her cognitive abilities, they are very strong. No additional speech language services/cognitive therapy is recommended at this time. Impact on Daily Function/Activity Limitations: Daily Activities: Interpersonal Interactions: Education: Employment: Community: Prognosis for Improvement: N/A Comment: All cognitive skills assessed are well withing normal limits. Recommendation for Speech Therapy: NA:Typical Evaluation Patient Education: Completed: Yes Patient/Caregiver Education: Described Results of Evaluation Patient expressed understanding of evaluation Comments/Barriers to Learning: None Certified Coatings Inspector Clinican/Clinical Fellow: No Supervisory Statement: N/A Speech Language Pathologist: Tiffany Muller M.A., CCC-AIR PURIFIER SERVICER
== END 2025-03-22 09:46 | disposition home or self-care (01) ==
LOC: HO.SH 12:46
PROVIDERS: PCP Internal Medicine; Visit Provider Psychiatry & Neurology Neurology
DX: R41.89 Other symptoms and signs involving cognitive functions and awareness (principal)
CPT/HCPCS: 96125

== ENCOUNTER 2025-05-30 09:48 | Outpatient (AMB) | payer BC, SELFPAY ==
--- NOTE | 2025-05-30 09:54 | A.OFFVIS_ITS ---
Intake Visit Reasons: Follow Up 6mo Intake Note: Patient following up speech referral note scanned 03/20/25. MRI not done denied by insurance. Allergies No Known Allergies Allergy (Verified 05/30/25 10:00) Medication List - Last Reconciled 05/30/25 by Blanka Bailey MD escitalopram oxalate 10 mg PO DAILY HPI Comments Details: 34y/o female comes for follow up of cognitive changes for past 2 years . Her cognitive eval was normal . she is feeling better since starting escitalopram . Insurance did not approve MRI. History from her initial visit 11/2024- she feels like her brain is foggy and is unable to focus more noticeable in the past 2 years. 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 she has h/o anxiety and in 2020 she went through a divorce ( which was unexpected ) which worsened her anxiety. she feels she is very sensitive and emotional and has difficulty with transitions. she has never seen a psychiatrist or a psychologist. 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 she has 3 younger sisters and are doing well Her maternal Grandfather had dementia - likely vascular . No known head injury [facility] Medical History Mediastinal lymphadenopathy Pulmonary nodule Cognitive change Anxiety Surgical History [place] teeth removed Hx of tonsillectomy H/O left wrist surgery Family History Mother Hypothyroid Father Cancer Mental health disorder Social History Housing: House Alcohol intake: never Patient Tobacco Use Status: Never used Tobacco e-Cigarette/Vaping Use: Never Used Substance Use Type: Marijuana service: No Current occupational status: employed Cognitive needs: No Hearing needs: No Vision needs: Yes Female Reproductive History Menstrual Age of Menarche: 13 Physical Exam Const General: cooperative, healthy appearing and comfortable Orientation/consciousness: patient oriented x3 Eyes Pupils: Equal, round and reactive pupils present Neuro General: patient oriented x3, gait normal, tone normal, moves all extremities and no focal motor deficits Cranial nerves: Yes Facial sensation intact/muscles of mastication intact, Yes Equal, round and reactive pupils present, Yes Bilaterally intact EOM present, Yes Nystagmus not present and Yes Normal facial strength present Cognition (Neuro): normal cognition Gait exam (Neuro): Normal gait present Motor exam (neuro): 5/5 motor strength present throughout and Normal motor muscle tone present throughout Coordination: [id number] test normal Psych Attitude: cooperative Thought content: Normal thought content present Insight: Good insight present (Psych) Assessment & Plan Assessment & Plan (1) Cognitive change: Comment: likely mood related Code(s): R41.89 - Other symptoms and signs involving cognitive functions and awareness Category: Medical (2) Anxiety, generalized: Code(s): F41.1 - Generalized anxiety disorder Category: Medical Plan Increase scitalopram 10 mg qd for anxiety F/u with PCP. Medications: Changed From escitalopram oxalate 5 mg PO DAILY 30 tabs 6RF To escitalopram oxalate 10 mg PO DAILY 90 tabs 6RF Coding Level of Care Code Est Pt Level 4 (43026) Diagnoses Cognitive change R41.89 Anxiety, generalized F41.1
== END 2025-05-30 10:51 | disposition home or self-care (01) ==
LOC: HO.HSMS 09:49
PROVIDERS: PCP Internal Medicine; Visit Provider Psychiatry & Neurology Neurology
DX: R41.89 Other symptoms and signs involving cognitive functions and awareness (principal); F41.1 Generalized anxiety disorder
CPT/HCPCS: 99214

== ENCOUNTER 2025-06-08 13:16 | Outpatient (REF) | payer BC, SELFPAY ==
--- NOTE | ~2025-06-08 | CT_ITS ---
EXAMINATION: CT CHEST WITH CONTRAST CLINICAL INFORMATION: R91.1 - Solitary pulmonary nodule COMPARISON: November 24, 2024 and October 09, 2024 TECHNIQUE: Multidetector volumetric CT imaging of the chest was obtained after the administration of 50 mL of Omnipaque 350 intravenous contrast without immediate adverse reactions. Axial MIP volume rendering provided. Sagittal and coronal reformatted images were obtained. This CT examination was performed using dose optimization techniques as appropriate, variously including the following: *Automated exposure control *Adjustment of mA and/or kV according to patient size (this includes techniques or standardized protocols for targeted exams where dose is matched to indication/reason for exam; i.e. extremities or head) *Use of iterative reconstruction technique DLP: 112 mGY*cm FINDINGS: LUNGS: The lungs are clear with no evidence of inflammation or nodules. MEDIASTINUM: Again seen is a right hilar mass with is smoothly marginated macrolobulated contour. And coronal CT #8 image 43/73, and measures 2.5 x 2.1 cm, 6 months ago it measured 2.4 x 2.9 cm, and 8 months ago it measured 2.3 x 2.8 cm. It measures 100 Hounsfield units, on the noncontrasted study September 2024, it measured 32 Hounsfield units consistent with enhancement. As previously, the mass abuts the anterolateral wall of the right lower lobe bronchus and pulmonary artery. No gross fat is present within the mass. PLEURA: There is no pleural effusion. No pleural mass or thickening. AXILLA: No lymphadenopathy. UPPER ABDOMEN: Unremarkable OSSEOUS STRUCTURES: Unremarkable. CT/CT chest w IV con IMPRESSION: Again seen is a suspicious right hilar mass. The mass appears larger than on the prior 2 examinations. Increase in size could be due to slice selection/volume averaging, however, interval growth is also a possibility. Mass could represent lymphadenopathy/neoplasm. Fleischner guidelines were followed. Electronically signed by: Chapin Lopez MD 06/08/2025 02:14 PM EDT
--- OUTSIDE RECORDS SUMMARY | 2025-06-08 13:19 | XMS_ITS | Clinical Summary ---
Author Organization [facility] Address [address] [place] [id number] Phone Care Team Providers Care Inspector Chief Name Role Phone Marcio Mayer DO Primary Care Provider [phone] Medications levonorgestrel-e thinyl estradiol (AVIANE) 0.1-0.02 mg per tablet 1 tablet 02/12/2017 Active Family History Medical History Relation Comments Cancer Father Leukemia Father Cancer Maternal Grandmother Leukemia Maternal Grandmother Thyroid disease Mother Relation Status Comments Father Maternal Grandmother Mother Social History Tobacco Use Types Packs/Day Years Used Date Smoking Tobacco: Never Assessed Education Answer Date Recorded Are you interested in more education? Not on renny e 03/19/2023 Are you concerned about learning? Not on file 03/19/2023 No 03/19/2023 No 03/19/2023 Digital Access Answer Date Recorded No 04/16/2023 No 04/16/2023 Reliable internet access at home? Not on file 04/16/2023 Device with a working camera? Not on file Comments Unknown Sex and Gender Information Value Date Recorded Sex Assigned at Female 05/11/2025 10:15 AM EDT Legal Sex Female 9:02 PM EDT Gender Identity Female 05/11/2025 10:15 AM EDT Sexual Orientation Straight 05/11/2025 10 :15 AM EDT Last Filed Vital Signs Vital Sign Reading Time Taken Comments Blood Pressure 86/60 05/18/2017 10:05 AM EDT Pulse - - Temperature - - Respiratory Rate - - Oxygen Saturation - - Inhaled Oxygen Concentration - - Weight 55.2 kg (121 lb 9.6 oz) 05/18/2017 10:05 AM EDT Height 143.5 cm (4' 8.5 ) 05/18/2017 10:05 AM ED T Body Mass Index 26.78 05/18/2017 10:05 AM EDT Plan of Treatment Health Maintenance Due Date Last Done Comments Adult Td,Tdap Booster 1991 DEPRESSION SCREENING 2003 SMOKING Hx and SMOKELESS TOB ACCO SCREENING 2004 HEPATITIS C SCREENING 2009 HIV ONE-TIME SCREENING (18-6 5 YEARS) 2009 PAP SMEAR 02/11/2020 02/10/2017 COVID-19 VACCINE (1 - 2023-2 5 season) 2024 HEPATITIS A VACCINES Aged Out No long er eligible based on patient's age to complete this topic HIB VACCINES Aged Out No longer eligi ble based on patient's age to complete this topic MENINGOCOCCAL VACCINES (ACWY) Aged Out No longer eligible based on patient's age to complete this topic MENINGOCOCCAL VACCINES (B) Aged Out N o longer eligible based on patient's age to complete this topic PNEUMOCOCCAL VACCINES (0-49 years) Aged Out No longer eligible based on patient's age to complete this topic Medical Devices Not on file Insurance [facility] [place] [place] [address] [facility] Care Teams Inspector Chief Relationship Specialty Start Date End Date Marcio Mayer DO [email or web address] PCP - General 09/07/17 Additional Source Comments The information contained in this document represents components of the legal health record. It is not the complete legal health record.[facility]
[2025-06-08] MEDS: iohexoL 350 MG/ML 100 ML INFUS..BTL 65 ML IV (13:51)
== END 2025-06-08 13:17 | disposition home or self-care (01) ==
LOC: HO.CT 13:16
PROVIDERS: PCP Internal Medicine; Visit Provider Nurse Practitioner Family
DX: R91.1 Solitary pulmonary nodule (principal); R59.0 Localized enlarged lymph nodes
CPT/HCPCS: 71260; Q9967

== ENCOUNTER → 2025-06-08 13:18 | Outpatient (BNV) | payer BC, SELFPAY | PROVIDERS: PCP Internal Medicine; Visit Provider Radiology Diagnostic Radiology | DX: R91.1 Solitary pulmonary nodule (principal) | CPT/HCPCS: 71260 ==

== ENCOUNTER 2025-07-09 07:52 | Outpatient (REF) | payer BC, SELFPAY ==
[2025-07-09 10:35] LABS: Resp Syncy Virus RNA Qual PCR NEGATIVE (Negative); SARS COV2 PCR INHOUSE NEGATIVE (Negative)
== END 2025-07-09 07:53 | disposition home or self-care (01) ==
LOC: HO.LNP 07:52
PROVIDERS: PCP Internal Medicine; Visit Provider Physician Assistant Medical
DX: J06.9 Acute upper respiratory infection, unspecified (principal); R05.9 Cough, unspecified; J02.9 Acute pharyngitis, unspecified; R09.89 Other specified symptoms and signs involving the circulatory and respiratory systems
CPT/HCPCS: 87637; 87880

== ENCOUNTER 2025-07-09 07:52 | Outpatient (AMB) | payer BC, SELFPAY ==
--- OUTSIDE RECORDS SUMMARY | 2025-07-09 07:55 | XMS_ITS | Clinical Summary ---
Author Organization [facility] Address [address] [place] [phone] Phone Care Team Providers Care Club Steward Name Role Phone Marcio Mayer DO Primary Care Provider [phone] Medications levonorgestrel-e thinyl estradiol (AVIANE) 0.1-0.02 mg [...] topic Medical Devices Not on file Insurance [facility] [place] [address] [facility] Care Teams Club Steward Relationship Specialty Start Date End Date Marcio Mayer DO [email or web address] PCP - General 09/07/17 Additional Source Comments The information contained in this document represents components of the legal health record. It is not the complete legal health record.[facility]
[2025-07-09 08:01] VITALS: BP 102/60; PULSE 89; TEMP 36.8; O2SAT 98; BMI 30.5
--- NOTE | 2025-07-09 08:01 | MHC.OFFWIV ---
Intake Vital Signs 07/09/25 08:01 Height 4 ft 8 in Weight 136 lb BMI 30.5 BP 102/60 Blood Pressure Location Lt brachial Position Sitting Pulse 89 Pulse Source Pulse Oximeter Temp 98.2 F Temp Source Oral Pulse Oximetry (%) 98 Oxygen Delivery Method Room Air Intake Visit Reasons: EP-chest congestion, cough, sore throat Intake Note: presents with chest congestion and productive cough with sore throat Patient Tobacco Use Status: Never used Tobacco Allergies No Known Allergies Allergy (Verified 07/09/25 08:04) Do you need a note to return to daycare/school/sports/work: No HPI HPI Comments History of Present Illness Details History - The patient is a 35-year-old female presenting with persistent chest congestion and cough. - She had a week-long cold with chest congestion, sore throat, and ear pain, which started a couple of weeks ago. - The sore throat and ear pain have resolved, but chest congestion remains. - The cough is sometimes productive of phlegm, and she has not experienced fever, shortness of breath, or chest pain. - She has not taken any medications and has no history of asthma. - Symptoms have persisted since the beginning of the month, with the most severe symptoms initially. - She denies sick contacts, travel, smoking, or asthma. - She denies CP, SOB, abd pain, n/v/d, or phlegm. Physical Exam General: Cooperative, healthy appearing, comfortable and no acute distress Orientation/consciousness: Patient oriented x3 Limitations: No limitations Head: Normal to inspection Ears: Hearing grossly normal bilaterally, external ears normal and TM's normal bilaterally Nose: Normal external nose present, normal nares present, and no nasal discharge present. Face and sinus: Sinuses nontender to palpation. Mouth: Normal oral and palatal mucosa present and moist mucous membranes noted. Throat: Tonsils normal. Uvula is midline. Posterior oropharynx with erythema and no exudates. Eyes: Appearance normal, both eyes and all related structures Neck: Normal visual inspection, full ROM. No lymphadenopathy noted. Respiratory: Clear to auscultation bilaterally. Normal respiratory effort, able to speak in complete sentences. No respiratory distress, not tachypneic, no tripod positioning and no use of accessory muscles. Cardiovascular: Regular rate and rhythm. Normal S1 and S2 Skin: No rashes or lesions noted Patient was informed and verbally consented to the use of an ambient scribe for clinic note documentation during this visit [facility] Medical History Mediastinal lymphadenopathy Pulmonary nodule Cognitive change Anxiety Surgical History [place] teeth removed Hx of tonsillectomy H/O left wrist surgery Family History Mother Hypothyroid Father Cancer Mental health disorder Social History Housing: House Alcohol intake: never Patient Tobacco Use Status: Never used Tobacco e-Cigarette/Vaping Use: Never Used Substance Use Type: Marijuana service: No Current occupational status: employed Cognitive needs: No Hearing needs: No Vision needs: Yes Female Reproductive History Menstrual Age of Menarche: 13 Review of Systems Const All systems reviewed & are unremarkable except as noted in HPI and below Physical Exam Vital Signs: Last Vital Signs Temp 98.2 F 07/09/25 08:01 Pulse 89 07/09/25 08:01 BP 102/60 07/09/25 08:01 Pulse Ox 98 07/09/25 08:01 Oxygen Delivery Method Room Air 07/09/25 08:01 BMI result Body Mass Index 30.5 Assessment & Plan Assessment & Plan (1) URI with cough and congestion: Code(s): J06.9 - Acute upper respiratory infection, unspecified Plan Most likely URI vs viral illness vs covid vs RSV vs flu Rapid strep was negative Plan - Conduct testing for COVID-19, influenza, and RSV due to the prevalence of these infections in the community. - Prescribe medications to manage symptoms and send prescriptions to the patient's pharmacy. - Follow-up with the patient regarding test results either later today or Orders: Orders SARS-CoV2/FLU/RSV Today R09.89 - Other specified symptoms and signs involving the circulatory and respiratory systems AMB Rapid Strep Screen Today Z13.9 - Encounter for screening, unspecified Medications: New benzonatate 100 mg PO bid-tid PRN 21 caps 0RF Cough 7 days fluticasone propionate 50 mcg/actuation administer into each nostril 1 spray intranasal Q12H 16 grams 0RF cetirizine-pseudoephedrine 5-120 mg ER 1 tab PO BID 14 tabs 0RF 7 days Coding Level of Care Code Est Pt Level 3 (16538) Diagnoses URI with cough and congestion J06.9
== END 2025-07-09 08:36 | disposition home or self-care (01) ==
PROVIDERS: PCP Internal Medicine; Visit Provider Physician Assistant Medical
DX: Z13.9 Encounter for screening, unspecified (principal); J06.9 Acute upper respiratory infection, unspecified

== ENCOUNTER 2025-07-17 16:00 | Outpatient (AMB) | payer BC, SELFPAY ==
--- NOTE | 2025-07-17 16:08 | MHC.OFFVIS ---
Vital Signs 07/17/25 16:09 Height 4 ft 8 in Weight 139 lb BMI 31.2 BP 106/62 Blood Pressure Location Lt brachial Position Sitting Pulse 78 Pulse Source Pulse Oximeter Pulse Oximetry (%) 98 Oxygen Delivery Method Room Air Intake Visit Reasons: Discuss Biopsy Results Ultrasound Technologist Required: No Accompanied by: Self / Same As Patient Allergies No Known Allergies Allergy (Verified 07/17/25 16:11) Medication List - Last Reconciled 07/17/25 by Lorie Villaseñor LPN benzonatate 100 mg PO bid-tid PRN 7 days cetirizine-pseudoephedrine 5-120 mg ER 1 tab PO BID 7 days escitalopram oxalate 10 mg PO DAILY fluticasone propionate 50 mcg/actuation 1 spray intranasal Q12H HPI HPI Discuss Biopsy Results: Details: Mariana is a pleasant 35 year old female, never smoker, with no significant past medical history. She was initially referred by ED after incidental finding on CT chest without contrast revealing 2.6 cm ovoid shaped lesion near right pulmonary hilum with associated lymphadenopathy. She was sent for chest CT with contrast to better differentiate structures ultimately had EBUS with Dr. Spencer on 12/14/24 Pathology: Cellular specimen consisting predominantly of small lymphocytes with scant cytoplasm and mature chromatin; admixed are somewhat larger forms. Background benign bronchial epithelial cells are present. No features of metastatic disease are present; diagnostic features of a lymphoproliferative disorder are not present. The cell block has similar findings. Concurrent flow cytometry is negative. At that time findings consistent with possible harmartoma and agreed on surveillence. Today she presents to review chest CT results. [facility] Medical History Mediastinal lymphadenopathy Pulmonary nodule Cognitive change Anxiety Surgical History [place] teeth removed Hx of tonsillectomy H/O left wrist surgery Family History Mother Hypothyroid Father Cancer Mental health disorder Social History Housing: House Alcohol intake: never Patient Tobacco Use Status: Never used Tobacco e-Cigarette/Vaping Use: Never Used Substance Use Type: Marijuana service: No Current occupational status: employed Cognitive needs: No Hearing needs: No Vision needs: Yes Female Reproductive History Menstrual Age of Menarche: 13 Review of Systems Const Denies chills, Denies excessive sweating, Denies fever(s), Denies headache(s) and Denies night sweats Eyes Denies dry eyes, Denies irritation and Denies itchy eyes ENT Reports Normal hearing present, Denies headache(s), Denies nasal congestion, Denies nasal discharge, Denies post nasal drip and Denies sore throat Card Denies chest pain, Denies chest pain at rest, Denies chest pain with activity, Denies claudication, Denies leg edema, Denies dyspnea, Denies dyspnea on exertion, Denies orthopnea and Denies paroxysmal nocturnal dyspnea Resp Denies excessive phlegm production, Denies pain on inspiration, Denies pain with cough, Denies dyspnea, Denies dyspnea on exertion, Denies stridor and Denies wheezing Musc Denies myalgias Neuro Reports Normal hearing present and Denies headache(s) Endo Denies excessive sweating Alfonzo/Lymph Denies lymphadenopathy Aller/Immun Denies itchy eyes, Denies seasonal rhinorrhea and Denies wheezing Physical Exam Vital Signs: Last Vital Signs Pulse 78 07/17/25 16:09 BP 106/62 07/17/25 16:09 Pulse Ox 98 07/17/25 16:09 Oxygen Delivery Method Room Air 07/17/25 16:09 BMI result Body Mass Index 31.2 Const General: cooperative, healthy appearing, comfortable, no acute distress, well developed and alert Orientation/consciousness: patient oriented x3 Limitations: no limitations HEENT Head: Yes normal to inspection, Yes normocephalic and Yes atraumatic Ears: hearing grossly normal bilaterally and external ears normal Eyes General: appearance normal, both eyes and all related structures Eyelids: Yes eyelids normal Sclerae: sclerae normal EOM: EOMs intact bilaterally Neck Neck: Yes normal visual inspection and Yes no lymphadenopathy Lymphatic: no lymphadenopathy noted Chest Chest palpation & inspection: normal inspection of the chest Resp Effort & Inspection: normal respiratory effort, able to speak in complete sentences, no audible wheezes, no cough, no stridor, not tachypneic, no tripod positioning and no use of accessory muscles Auscultation: clear to auscultation bilaterally Cardio Jugular venous distension: no JVD Rate: regular rate Rhythm: regular rhythm Skin Other: warm, dry General skin exam: no rashes or lesions noted Neuro General: patient oriented x3 Cranial nerves: Yes Normal hearing present Cognition (Neuro): normal cognition Gait exam (Neuro): Normal gait present Extrem General: Yes normal to inspection, Yes capillary refill normal, Yes no clubbing, cyanosis or edema and Yes no pedal edema Psych Appearance: grossly normal and well kempt Speech and movement: Normal speech and movement present and Clear speech present Affect: normal affect Attitude: cooperative Thought process: Normal thought process present Thought content: Normal thought content present Insight: Good insight present (Psych) Judgement: Good judgement present (Psych) Results Reviewed Results Reviewed: [address] [address] [address] Scan Report Signed Patient: Mariana Marrero MR#: [id number] : 1990 Acct:[id number] Age/Sex: 35 / F ADM Date: 06/08/25 Loc: HO.CT Attending Dr: Mary Armstrong NP Ordering Physician: Mary Armstrong NP Date of Service: 06/08/25 Procedure(s): CT chest w IV con Accession Number(s): [id number] cc: Estiven Little MD; Mary Armstrong NP~ Report Number: [id number]: Total DLP = 112.00 mGy-cm EXAMINATION: CT CHEST WITH CONTRAST CLINICAL INFORMATION: R91.1 - Solitary pulmonary nodule COMPARISON: November 24, 2024 and October 09, 2024 TECHNIQUE: Multidetector volumetric CT imaging of the chest was obtained after the administration of 50 mL of Omnipaque 350 intravenous contrast without immediate adverse reactions. Axial MIP volume rendering provided. Sagittal and coronal reformatted images were obtained. This CT examination was performed using dose optimization techniques as appropriate, variously including the following: *Automated exposure control *Adjustment of mA and/or kV according to patient size (this includes techniques or standardized protocols for targeted exams where dose is matched to indication/reason for exam; i.e. extremities or head) *Use of iterative reconstruction technique DLP: 112 mGY*cm FINDINGS: LUNGS: The lungs are clear with no evidence of inflammation or nodules. MEDIASTINUM: Again seen is a right hilar mass with is smoothly marginated macrolobulated contour. And coronal CT #8 image 43/73, and measures 2.5 x 2.1 cm, 6 months ago it measured 2.4 x 2.9 cm, and 8 months ago it measured 2.3 x 2.8 cm. It measures 100 Hounsfield units, on the noncontrasted study September 2024, it measured 32 Hounsfield units consistent with enhancement. As previously, the mass abuts the anterolateral wall of the right lower lobe bronchus and pulmonary artery. No gross fat is present within the mass. PLEURA: There is no pleural effusion. No pleural mass or thickening. AXILLA: No lymphadenopathy. UPPER ABDOMEN: Unremarkable OSSEOUS STRUCTURES: Unremarkable. CT/CT chest w IV con IMPRESSION: Again seen is a suspicious right hilar mass. The mass appears larger than on the prior 2 examinations. Increase in size could be due to slice selection/volume averaging, however, interval growth is also a possibility. Mass could represent lymphadenopathy/neoplasm. Fleischner guidelines were followed. Electronically signed by: Chapin Lopez MD 06/08/2025 02:14 PM EDT RP Dictated By: Chapin Lopez MD Signed By: <Electronically signed by Chapin Lopez MD in OV> 06/08/25 1414 DD/ 1319 TD/TT: 06/08/25 1352 Acute Care Physical Therapist: Assessment & Plan Assessment & Plan (1) Pulmonary nodule: Code(s): R91.1 - Solitary pulmonary nodule Category: Medical (2) Mediastinal lymphadenopathy: Code(s): R59.0 - Localized enlarged lymph nodes Category: Medical Plan We discussed with the patient the findings of the CT scan and the slight increase 1-2 mm in overall size in 6 months. We reviewed the options of continued surveillance with CT scans versus referral to thoracic surgery for further evaluation and potential repeat biopsy. Patient would like to proceed with referral to Dr. Cotter. The patient was informed about the importance of monitoring the mass due to its potential to compress airways/vessels and cause respiratory symptoms. All questions were answered and patient is in agreement of plan. Will follow up in 3 months or sooner if needed. Orders: Referrals Thoracic/General Surgery Referral R59.0 - Localized enlarged lymph nodes, R91.1 - Solitary pulmonary nodule Coding Level of Care Code Est Pt Level 4 (46270) Diagnoses Pulmonary nodule R91.1 Mediastinal lymphadenopathy R59.0
[2025-07-17 16:09] VITALS: BP 106/62; PULSE 78; O2SAT 98; BMI 31.2
== END 2025-07-17 16:34 | disposition home or self-care (01) ==
LOC: HO.HPSW 16:01
PROVIDERS: PCP Internal Medicine; Visit Provider Nurse Practitioner Family
DX: R91.1 Solitary pulmonary nodule (principal); R59.0 Localized enlarged lymph nodes
CPT/HCPCS: 99214

== ENCOUNTER 2025-09-06 16:10 | Outpatient (AMB) | payer BC, SELFPAY ==
[2025-09-06 16:16] VITALS: BP 100/72; PULSE 77; TEMP 36.9; O2SAT 98
--- NOTE | 2025-09-06 16:16 | MHC.OFFWIV ---
Intake Vital Signs 09/06/25 16:16 Height 4 ft 9 in Weight 32 lb BMI 6.9 BP 100/72 Blood Pressure Location Lt brachial Position Sitting Pulse 77 Pulse Source Pulse Oximeter Temp 98.4 F Temp Source Oral Pulse Oximetry (%) 98 Oxygen Delivery Method Room Air Intake Visit Reasons: EP Cold symptoms Intake Note: pt presents with sinus congestion, headache, ears feel blocked, mild sore throat Patient Tobacco Use Status: Never used Tobacco Allergies No Known Allergies Allergy (Verified 09/06/25 16:18) Do you need a note to return to daycare/school/sports/work: No HPI HPI Comments History of Present Illness Details History - The patient is a 35-year-old female presenting with symptoms of an upper respiratory tract infection. - Symptoms include stuffy nose, sore throat, coughing, and sneezing, persisting for approximately 20 days. - No fever, chest pain, shortness of breath, or diarrhea reported. - No recent travel history or history of asthma. - She denies fever, chills, CP, SOB, abd pain, n/v/d. 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 - She is a non smoker. Physical Exam General: Cooperative, healthy appearing, comfortable and no acute distress Orientation/consciousness: Patient oriented x3 Limitations: No limitations Head: Normal to inspection Ears: Hearing grossly normal bilaterally, external ears normal and TM's normal bilaterally Nose: Stuffy nose present, normal external nose present, normal nares present, and no nasal discharge present. Face and sinus: Sinuses nontender to palpation. Mouth: Normal oral and palatal mucosa present and moist mucous membranes noted. Throat: Sore throat present. Tonsils normal. Uvula is midline. Posterior oropharynx with erythema and no exudates. Eyes: Appearance normal, both eyes and all related structures Neck: Normal visual inspection, full ROM. No lymphadenopathy noted. Respiratory: Clear to auscultation bilaterally. Normal respiratory effort, able to speak in complete sentences. No respiratory distress, not tachypneic, no tripod positioning and no use of accessory muscles. Cardiovascular: Regular rate and rhythm. Normal S1 and S2 Skin: No rashes or lesions noted Patient was informed and verbally consented to the use of an ambient scribe for clinic note documentation during this visit REPLACED BY [facility] Medical History Mediastinal lymphadenopathy Pulmonary nodule Cognitive change Anxiety Surgical History [place] teeth removed Hx of tonsillectomy H/O left wrist surgery Family History Mother Hypothyroid Father Cancer Mental health disorder Social History Housing: House Alcohol intake: never Patient Tobacco Use Status: Never used Tobacco e-Cigarette/Vaping Use: Never Used Substance Use Type: Marijuana service: No Current occupational status: employed Cognitive needs: No Hearing needs: No Vision needs: Yes Female Reproductive History Menstrual Age of Menarche: 13 Review of Systems Const All systems reviewed & are unremarkable except as noted in HPI and below Physical Exam Vital Signs: Last Vital Signs Temp 98.4 F 09/06/25 16:16 Pulse 77 09/06/25 16:16 BP 100/72 09/06/25 16:16 Pulse Ox 98 09/06/25 16:16 Oxygen Delivery Method Room Air 09/06/25 16:16 BMI result Body Mass Index 6.9 Assessment & Plan Assessment & Plan (1) Upper respiratory infection with cough and congestion: Code(s): J06.9 - Acute upper respiratory infection, unspecified Plan Most likely URI vs viral illness vs covid vs flu plan - COVID-19 testing was performed, and results will be communicated to the patient. - Prescribed Flonase for daily use and cetirizine D for decongestion and antihistamine effects. - Advised to take Tylenol or Motrin for symptomatic relief and to maintain hydration. - will call with the results - follow up with PCP Orders: Orders Resp Pathogen Panel - [facility] [place] Today J06.9 - Acute upper respiratory infection, unspecified Medications: New fluticasone propionate 50 mcg/actuation administer into each nostril 1 spray intranasal Q12H 16 grams 0RF cetirizine-pseudoephedrine 5-120 mg ER 1 tab PO BID 14 tabs 0RF 7 days benzonatate 100 mg PO bid-tid PRN 21 caps 0RF Cough 7 days Coding Level of Care Code Est Pt Level 3 (07976) Diagnoses Upper respiratory infection with cough and congestion J06.9
--- OUTSIDE RECORDS SUMMARY | 2025-09-06 19:38 | XMS_ITS | Clinical Summary ---
Author Organization [facility] Address [address] [place] [phone] Phone Care Team Providers Care Molder Name Role Phone Marcio Mayer DO Primary Care Provider [phone] Medications levonorgestrel-e thinyl estradiol (AVIANE) 0.1-0.02 mg [...] 5 YEARS) 2009 PAP SMEAR 02/11/2020 02/10/2017 INFLUENZA VACCINE (#1) 2025 COVID-19 VACCINE ( - 2024-2 6 season) 2025 HEPATITIS A VACCINES Aged Out No long [...] topic Medical Devices Not on file [place] [address] [place] [id number] [facility] Care Teams Molder Relationship Specialty Start Date End Date Marcio Mayer DO PCP - General 09/07/17 Additional Source Comments The information contained in this document represents components of the legal health record. It is not the complete legal health record.[facility]
--- OUTSIDE RECORDS SUMMARY | 2025-09-06 19:38 | XMS_ITS | Clinical Summary ---
Author Organization [address] Address [address] [place] [address] Phone Care Team Providers Care Dental Nurse Name Role Phone Estiven Little MD Primary Care Provider [phone] Allergies No known active allergies Medications escitalopram (LEXAPRO) 10 mg tablet Take 1 tablet (10 mg total) by mouth at bedtime. Active Active Problems Problem Noted Date Diagnosed Date Lung mass 07/26/2025 Encounters Date Type Department Care Team Description 08/23/2025 2:30 PM EDT Office Visit Thoracic Surgery - [place] [address] [facility] [address] [place] [phone] Savanna Cotter MD Lung mass (Primary Dx) 08/17/2025 1:00 PM EDT - 08/17/2025 3:00 PM EDT Surgery [facility] Main OR [address] [place] [phone] Savanna Cotter MD Navigational bronchoscopy/EBUS with biopsies [98776 (CPT ) +5 more] 08/17/2025 12:22 PM EDT Anesthesia Event [facility] OR [address] [place] [phone] Patel Parsons MD Hard, Shannon, CRNA 08/17/2025 11:33 AM EDT - 08/17/2025 3:37 PM EDT Hospital Encounter [facility] OR [address] [place] [phone] Savanna Cotter MD Lung mass Discharge Disposition: Home or Self Care 08/17/2025 7:20 AM EDT - 08/17/2025 11:59 PM EDT Hospital Encounter [facility] Xray [address] [place] [phone] Pain Discharge Disposition: Home or Self Care 08/03/2025 1:28 PM EDT - 08/03/2025 11:59 PM EDT Hospital Encounter [facility] CT Scan [address] [place] [phone] Lung nodules Discharge Disposition: Home or Self Care 07/30/2025 Telephone Thoracic Surgery - [place] [address] [facility] [address] [place] [phone] Kianna Hoff [place] 07/26/2025 3:00 PM EDT Consult Thoracic Surgery - [place] [address] [facility] [address] [place] [phone] Savanna Cotter MD Lung mass (Primary Dx) from Last 3 Months Surgical History Surgery Date Site/Laterality Comments OTHER SURGICAL HISTORY Left H/O LEFT WRIST SURGERY TONSILLECTOMY Hx WISDOM TOOTH EXTRACTION UPPER GASTROINTESTINAL ENDOSCOPY ORIF WRIST FRACTURE Left BRONCHOGRAM 08/17/2025 Jeff Bronch Ebus w/ BX Medical History Medical History Date Comments Mediastinal lymphadenopathy Pulmonary nodule Cognitive change Anxiety Family History Medical History Relation Name Comments Cancer Father mental health disorder Father Thyroid disease Mother Relation Name Status Comments Father Mother Social History Tobacco Use Types Packs/Day Years Used Date Smoking Tobacco: Never Smokeless Tobacco: Never Tobacco Cessation:Counseling Given: Not Answered Alcohol Use Standard Drinks/Week Comments Never 0 (1 standard drink = 0.6 oz pur e alcohol) Comments No Sex and Gender Information Value Date Recorded Sex Assigned at Female 07/30/2025 7:50 PM EDT Legal Sex Female 9:43 AM EDT Gender Identity Female 08/08/2025 9:01 AM EDT Sexual Orientation Not on file Obstetrics History Last Filed Vital Signs Vital Sign Reading Time Taken Comments Blood Pressure 108/57 08/23/2025 2:41 PM EDT Pulse 74 08/23/2025 2:41 PM EDT Temperature 36.7 C (98.1 F) 08/23/2025 2:41 PM EDT Respiratory Rate 17 08/23/2025 2:41 PM EDT Oxygen Saturation 99% 08/23/2025 2:41 PM EDT Inhaled Oxygen Concentration - - Weight 61.1 kg (134 lb 11.2 oz) 08/23/2025 2:41 PM EDT Height 144.8 cm (4' 9 ) 08/23/2025 2:41 PM EDT Body Mass Index 29.15 08/23/2025 2:41 PM EDT Plan of Treatment Health Maintenance Due Date Last Done Comments DTaP,Tdap,and Td Vaccines (1 - Tdap) 2010 Hepatitis B Vaccines (1 of 3 - 19+ 3-dose series) 2010 Cervical Cancer Screening: P ap Smear 2012 HPV Vaccines (1 - 3-dose SCD M series) 2018 Depression Screening 11/22/2024 HIV Screening 07/19/2025 Hepatitis C Screening 07/19/2025 Social Influencers of Health Screening 07/19/2025 COVID-19 Vaccine (2 - 2024-2 6 season) 2025 09/09/2022 Influenza Vaccine (#1) 2025 RSV Immunization Adult Patie nts (1 - 1-dose 75+ series) 2066 HIB Vaccines Aged Out No longer eligi ble based on patient's age to complete this topic Hepatitis A Vaccines Aged Out No long er eligible based on patient's age to complete this topic IPV Vaccines Aged Out No longer eligi ble based on patient's age to complete this topic MMR Vaccines Aged Out No longer eligi ble based on patient's age to complete this topic Meningococcal ACWY Vaccine Aged Out N o longer eligible based on patient's age to complete this topic Meningococcal B Vaccine Aged Out No l onger eligible based on patient's age to complete this topic Pneumococcal Vaccine: Pediat rics (0 to 5 Years) and At-Risk Patients (6 to 49 Years) Aged Out No longer eligi ble based on patient's age to complete this topic RSV Immunization Patients Un abhilash 20 months Aged Out No longer eligible b ased on patient's age to complete this topic Varicella Vaccines Aged Out No longer eligible based on patient's age to complete this topic Procedures Procedure Name Priority Date/Time Associated Diagnosis Comments XR CHEST 1 VIEW STAT 08/17/2025 1:48 PM EDT OXYGEN THERAPY, ADULT Routine 08/17/2025 1:33 PM EDT LEUKEMIA, LYMPHOMA EVALUATION BY FLOW CYTOMETRY Routine 08/17/2025 1:18 PM EDT Lung mass XR CHEST 1 VIEW Routine 08/17/2025 1:11 PM EDT Pain ..CONCENTRATION Routine 08/17/2025 1:00 PM EDT Lung mass ACID FAST BACILLI STAIN Routine 08/17/2025 1:00 PM EDT Lung mass CULTURE BRONCHIAL WITH GRAM STAIN Routine 08/17/2025 1:00 PM EDT Lung mass CULTURE, AFB AND SMEAR WITH REFLEX TO IDENTIFICATION AND SUSCEPTIBILITY Routine 08/17/2025 1:00 PM EDT Lung mass CULTURE FUNGAL, OTHER Routine 08/17/2025 1:00 PM EDT Lung mass NON-GYNECOLOGIC CYTOLOGY Routine 08/17/2025 12:58 PM EDT Lung mass TISSUE EXAM Routine 08/17/2025 12:51 PM EDT Lung mass TH AN ENDOTRACHEAL(NO CHARGE) Routine 08/17/2025 12:37 PM EDT RI CORE NDL BX LNG/MED PERQ 08/17/2025 12:21 PM EDT Lung mass Case Notes C-ARM RI BRONCHOSCOPY INCL FLUORO GUIDANCE W BRONCHIAL/ENDOBRONCHI AL BX SGL/MULT 08/17/2025 12:21 PM EDT Lung mass Case Notes C-ARM RI BRONCHOSCOPY RIGID/FLEXIBLE W/TRANSBRONCHIAL LUNG BIOPSY(S) SINGLE LOBE 08/17/2025 12:21 PM EDT Lung mass Case Notes C-ARM RI BRONCHOSCOPY RIGID/FLEXIBLE COMPUTER ASSISTED IMAGE GUIDED NAVIGATION 08/17/2025 12:21 PM EDT Lung mass Case Notes C-ARM RI BRONCHOSCOPY INCL FLUOROSCOPIC GUID W EBUS DURING PERIPHERAL LESION 08/17/2025 12:21 PM EDT Lung mass Case Notes C-ARM RI BRONCHOSCOPY INCL FLUROSCOPIC GUIDANCE W PLCMNT FIDUCIAL MARKER SGL/MULT 08/17/2025 12:21 PM EDT Lung mass Case Notes C-ARM POC PREGANCY, URINE NO CHARGE SCREENING MANUALLY RESULTED Routine 08/17/2025 11:53 AM EDT PROCEDURAL ECG Routine 08/08/2025 3:15 PM EDT Lung mass CBC WITH AUTO DIFFERENTIAL Routine 08/08/2025 3:01 PM EDT Lung mass BASIC METABOLIC PANEL Routine 08/08/2025 3:01 PM EDT Lung mass CBC AND DIFFERENTIAL Routine 08/08/2025 3:01 PM EDT Lung mass PROTHROMBIN TIME WITH INR Routine 08/08/2025 3:01 PM EDT Lung mass ACTIVATED PARTIAL THROMBOPLASTIN TIME Routine 08/08/2025 3:01 PM EDT Lung mass TYPE AND SCREEN Routine 08/08/2025 3:01 PM EDT Lung mass CT CHEST WO CONTRAST Routine 08/03/2025 2:03 PM EDT Lung nodules from Last 3 Months Results * XR Chest 1 View (08/17/2025 1:48 PM EDT) Only the most recent of2 resultswithin the time period is included. Anatomical Region Laterality Modality Body Radiographic Alyssa ging 08/17/2025 2:33 PM EDT Impressions 08/17/2025 2:34 PM EDT FINDINGS/IMPRESSION: No pneumothorax. Right basilar atelectasis versus infiltrate. -------- FINAL REPORT -------- Dictated By: Lorie Chairez Dictated Date: 08/17/2025 14:33 ET Assigned Physician: Lorie Chairez Reviewed and Electronically Signed By: Lorie Chairez Signed Date: 08/17/2025 14:34 ET Workstation ID: [id number] Transcribed By: Self Edit Transcribed Date: 08/17/2025 14:33 ET Narrative 08/17/2025 2:34 PM EDT XR CHEST 1 VIEW INDICATION: Lung biopsy TECHNIQUE: XR CHEST 1 VIEW COMPARISON: No priors available. Procedure Note Lorie Chairez MD - 08/17/2025 XR CHEST 1 VIEW INDICATION: Lung biopsy TECHNIQUE: XR CHEST 1 VIEW COMPARISON: No priors available. IMPRESSION: FINDINGS/IMPRESSION: No pneumothorax. Right basilar atelectasis versusinfiltrate. -------- FINAL REPORT -------- Dictated By: Lorie Chairez Dictated Date: 08/17/2025 14:33 ET Assigned Physician: Lorie Chairez Reviewed and Electronically Signed By: Lorie Chairez Signed Date: 08/17/2025 14:34 ET Workstation ID: [id number] Transcribed By: Self Edit Transcribed Date: 08/17/2025 14:33 ET Savanna Cotter MD IMG XR PROCEDURES Final Result * Leukemia, lymphoma evaluation by flow cytometry (08/17/2025 1:18 PM EDT) Scan Result See Scanned Result 08/22/2025 11:00 AM EDT EXTERNAL LAB (NON-INTERFAC ED) Tissue Mediastinal structure / Unknown 08/17/2025 1:18 PM EDT 08/17/2025 1:37 PM EDT Narrative EXTERNAL LAB (NON-INTERFACED) - 08/22/2025 11:00 AM EDT See scanned [employer] Report Savanna Cotter MD LAB MOLECULAR DIAGNOSTICS ORDERA BLES Final Result EXTERNAL LAB (NON-INTERFACED) * Culture bronchial with gram stain (08/17/2025 1:00 PM EDT) Bronchial Culture No growth at 3 days 08/20/2025 11:01 AM EDT [facility] Gram Stain Result No polymorphonuclear leukocytes, No epithelial cells, and No organisms noted 08/20/2025 11:01 AM EDT [facility] Wash Structure of lower lobe of right lung / Unknown 08/17/2025 1:00 PM EDT 08/17/2025 1:25 PM EDT us Savanna Cotter MD LAB MICROBIOLOGY - GENERAL ORDER JAN Final Result Performing Organization Address City/[facility]/ZIP Co de Phone Number [facility] [address] [place] [address], [place] [phone] * Concentration (08/17/2025 1:00 PM EDT) AFB Concentration Performed 6:05 PM EDT [facility] Wash Structure of lower lobe of right lung / Unknown 08/17/2025 1:00 PM EDT 08/17/2025 1:25 PM EDT Narrative [facility] - 08/18/2025 6:05 PM EDT Performed at: - [facility] [id number] Pattern Molder: Pooja Dai MD, Phone: [phone] us Savanna Cotter MD LAB BLOOD ORDERABLES Final Resul t Performing Organization Address [facility]/ZIP Co de Phone Number [id number] * Acid fast bacilli stain (08/17/2025 1:00 PM EDT) AFB Stain Result No Acid fast bacilli seen on direct smear (Fuchsin method, 1000x) No Acid Fast Bacilli seen on direct smear 08/17/2025 8:07 PM EDT [facility] Wash Structure of lower lobe of right lung / Unknown 08/17/2025 1:00 PM EDT 08/17/2025 1:25 PM EDT us Savanna Cotter MD LAB MICROBIOLOGY - GENERAL ORDER JAN Final Result Performing Organization Address City/[facility]/ZIP Co de Phone Number [facility] [address] [place] [address], [place] [phone] * Non-gynecologic cytology (08/17/2025 12:58 PM EDT) Final Diagnosis A. Lung, Right Lower Lobe, Bronchial brushing (ThinPrep, cell block): Negative for malignant cells. Benign bronchial cells. B. Lung, Right Lower Lobe, Bronchial washing (ThinPrep, cell block): Negative for malignant cells. Macrophages and mixed inflammation present. C. Lung, Right Lower Lobe, Nodule -fine needle aspiration, (ThinPrep, cell block): Benign bronchial cells; not diagnostic for a mass lesion. D. Mediastinum, Right hilar mass -fine needle aspiration, (ThinPrep, cell block): Abundant small lymphocytes. Please see concurrent core biopsy, [id number], for characterization . 08/23/2025 10:30 AM [facility] at 1030 EDT Specimen A Adequacy Satisfactory for evaluation 08/23/2025 10:30 AM [facility] Specimen B Adequacy Satisfactory for evaluation 08/23/2025 10:30 AM [facility] Specimen C Adequacy Satisfactory for evaluation 08/23/2025 10:30 AM [facility] Specimen D Adequacy Satisfactory for evaluation 08/23/2025 10:30 AM [facility] Gross Description A. Lung, Right Lower Lobe, Bronchial brushing: Received in saline is 30 ml of cloudy fluid with brush. One thinPrep, and one cell block are made. Cell block placed in formalin at 0930, total formalin fixation time is 11.5 hours. rp B. Lung, Right Lower Lobe, Bronchial washing: Received is 35 ml of pink cloudy fluid. One ThinPrep and one cell block are made. Cell block placed in formalin at 0930, total formalin fixation time is 11.5 hours. Fluid split half with cytolyt and formalin. rp C. Lung, Right Lower Lobe, Nodule: Received in saline is 30 ml of cloudy fluid. One thinPrep, and one cell block are made. Cell block placed in formalin at 0930, total formalin fixation time is 11.5 hours. rp D. Mediastinum, Right hilar mass: Received in saline is 30 ml of red cloudy fluid. One thinPrep, and one cell block are made. Cell block placed in formalin at 0930, total formalin fixation time is 11.5 hours. rp 08/23/2025 10:30 AM EDT [facility] Disclaimer Unless otherwise specified, all tissue is 10% NB formalin fixed and paraffin embedded. Technical cytopathology services provided by [facility], at [address] [place] [address] (CLIA # [id number]/Bisi Walker MD, District Manager Primary Care Sales.) 08/23/2025 10:30 AM EDT [facility] Brushing Structure of lower lobe of right lung / Unknown 08/17/2025 12:58 PM EDT 08/20/2025 8:21 AM EDT Specimen obtained by lavage (specimen) Structure of lower lobe of right lung / Unknown 08/17/2025 1:00 PM EDT 08/20/2025 8:42 AM EDT Brushing, function (observable entity) Structure of lower lobe of right lung / Unknown 08/17/2025 1:00 PM EDT 08/20/2025 8:42 AM EDT Brushing, function (observable entity) Mediastinal structure / Unknown 08/17/2025 1:00 PM EDT 08/20/2025 8:42 AM EDT us Savanna Cotter MD LAB CYTOLOGY ORDERABLES Final Re sult [facility]) [facility] [address] [place] [address], * Tissue exam (08/17/2025 12:51 PM EDT) Final Diagnosis A. Lung, Right Lower Lobe, Nodule - Cryo Biopsy: Mixed population of bland lymphocytes. No neoplasm identified. See comment. B. Mediastinum, Right Hilar Mass, Biopsy: Mixed population of bland lymphocytes. No neoplasm identified. See comment. 10/02/202 5 10:21 AM EDT [facility] at 1021 EDT Comment Histologic sections are similar on both parts A and B and a portion is sent for flow (see separate report). A limited panel of immunohistochemical stains is performed to characterize the lymphocytic proliferation and is interpreted as follows: - CD3, CD5: Positive in numerous T lymphocytes. - CD20, PAX-5: Positive in B lymphocytes. - CD10: Negative. - BCL 2: Positive. This pattern supports the above diagnosis. Controls stain appropriately. 5 10:21 AM EDT [facility] Gross Description A. Lung, Right Lower Lobe, Nodule - Cryo Biopsy: Labeled nodule lung RLL . Received in formalin are six soft, lawrence-red tissue fragments, some of which may represent blood clot ranging from 0.15 cm to 0.2 cm in greatest diameter, which are wrapped in paper and submitted in toto in two cassette, three pieces each (one H&E, +6 unstained slides for potential immunohistochemical stains and one H&E), conserving tissue on each block. B. Mediastinum, Right Hilar Mass - possible Lymphoma workup: Labeled right hil mediastinum . Received fresh, in saline, are four soft, lawrence-pink tissue fragments ranging measuring approximately 0.15-0.2 cm with minimal attached blood. One portion of tissue is placed in RPMI and submitted to [facility], [facility], for flow cytometric studies. The balance of the specimen is submitted into cassette, one and two pieces respectively (one H&E, +15 unstained slides for potential immunohistochemical stains and one H&E), conserving tissue, cut at 3 m. TS 10:21 AM EDT [facility] Disclaimer NOTE: The immunohistochemical tests and in situ hybridization tests were developed and their performance characteristics were determined by [facility]. They have not been cleared or approved by the U.S. Food and Drug Administration. The FDA has determined that such clearance or approval is not necessary. These tests are used for clinical purposes. They should not be regarded as investigational or for research. This laboratory is certified under the Clinical Laboratory Improvement Amendments of 1988 (CLIA) as qualified to perform high complexity clinical laboratory testing. (controls appropriate) Unless otherwise specified, all tissue is 10% NB formalin fixed and paraffin embedded. 10:21 AM EDT [facility] Tissue Structure of lower lobe of right lung / Unknown 08/17/2025 12:51 PM EDT 08/17/2025 1:35 PM EDT Tissue specimen (specimen) Mediastinal structure / Unknown 08/17/2025 1:18 PM EDT 08/17/2025 1:35 PM EDT us Savanna Cotter MD LAB PATHOLOGY ORDERABLES Final R esult [facility] ([facility]) [facility] [address] [place] [address], [place] [phone] * TH AN ENDOTRACHEAL(NO CHARGE) (08/17/2025 12:37 PM EDT) Cooper Anderson DO - 08/17/2025 12:37 PM EDT Cooper Dos Santos DO 08/17/2025 2:51 PM Other Attempts Unsuccessful attempted endotracheal techniques: direct laryngoscopy General Information and Staff Patient location during procedure: OR Anesthesiologist: Cooper Dos Santos DO Resident/COOK MORNING: Renetta Olivia CRNA Performed: resident/COOK MORNING/CAA Performed by: Renetta Olivia CRNA Authorized by: Cooper Dos Santos DO Intubation Additional Comments Gr 4 view with mac 3- gr 2a view with provu hyper 3, in addition to head lift and cricoid pressure Airway not difficult Urgency: elective Final Airway Details Successful airway: ETT Cuffed: yes Successful intubation technique: video laryngoscopy Facilitating devices/methods: anterior pressure/BURP and intubating stylet (head lift) Endotracheal tube insertion site: oral Blade: Vega Blade size: #3 Cormack-Lehane Classification: grade IIa - partial view of glottis Placement verified by: chest auscultation and capnometry Measured from: lips ETT to lips (cm): 21 Number of attempts at approach: 2 Ventilation between attempts: BVM Number of other approaches attempted: 1Final airway type: endotracheal airway Indications and Patient Condition Indications for airway management: anesthesia Spontaneous ventilation: present Sedation level: Yes Preoxygenated: yes Soft Tissue Damage: No Dentition Unchanged: Yes Patient position: sniffing Mask difficulty assessment: 2 - vent by mask + OA or adjuvant +/- NMBA Start Time: 08/17/2025 12:37 PMStop Time: 08/17/2025 12:38 PM Cooper Dos Santos DO ANESTHESIA ORDERABLES Edited Re sult - Final * POC , urine NO CHARGE screening manually resulted (08/17/2025 11:53 AM EDT) HCG, Ur POC Negative Negative POC hCG Int QC Pass? Yes Yes Urine Urine specimen obtained by clean catch procedure / Unknown 08/17/2025 11:53 AM EDT Savanna Cotter MD POINT OF CARE TEST ENTER/EDIT OR DERABLES Final Result * ECG 12 lead - Procedural (No Charge) (08/08/2025 3:15 PM EDT) Ventricular Rate ECG 62 BPM GEMUSE Atrial Rate 62 BPM GEMUSE P-R Interval 176 ms GEMUSE QRS Duration 68 ms GEMUSE Q-T Interval 392 ms GEMUSE QTc 397 ms GEMUSE P Wave [place] 44 degrees GEMUSE R [place] 35 degrees GEMUSE T [place] 37 degrees GEMUSE ECG Interpretation Normal sinus rhythm with sinus arrhythmia Normal ECG No previous ECGs available Confirmed by MD HONEYCUTT JOHN ([id number]) on 08/08/2025 5:37:18 PM GEMUSE 08/08/2025 3:15 PM EDT 08/08/2025 5:37 PM EDT Savanna Cotter MD ECG ORDERABLES Final Result GEMUSE * (ABNORMAL) CBC auto differential (08/08/2025 3:01 PM EDT) WBC 9.6 4.8 - 10.8 K/[facility] LAB HEMETOLOGY METHOD 08/08/2025 3:31 PM EDT [facility] RBC 4.70 3.80 - 4.80 M/mcL LAB HEMETOLOGY METHOD 08/08/2025 3:31 PM EDT [facility] Hemoglobin 14.3 11.5 - 16.0 g/dL LAB HEMETOLOGY METHOD 08/08[facility]25 [facility] Hematocrit 40.0 35.0 - 47.0 % LAB HEMETOLOGY METHOD 08[facility]08/2025 3:[facility] MCV 85.1 79.0 - 98.0 FL LAB HEMETOLOGY METHOD 08/08/2025 3:31 [facility] MCH 30.4 27.0 - 32.0 pcg LAB HEMETOLOGY METHOD 08/08/2025 3:31 PM [facility] MCHC 35.8 32.0 - 37.0 g/dL LAB HEMETOLOGY METHOD 08/08/2025 3:31 PM [facility] RDW 11.9 11.0 - 15.0 % LAB HEMETOLOGY METHOD 08/08/2025 3:31 PM [facility] Platelets 265 130 - 400 K/mcL LAB HEMETOLOGY METHOD 08/08/2025 3:31 PM [facility] MPV 8.1 7.0 - 11.0 FL LAB HEMETOLOGY METHOD 08/08/2025 3:[facility] NRBC 0.0 <1.0 % LAB HEMETOLOGY METHOD 08/08/2025 3:31 [facility] NRBC Absolute 0.00 <0.10 K/mcL LAB HEMETOLOGY METHOD 08/08/2025 3:31 [facility] Neutrophils Relative 50.5 % LAB HEMETOLOGY METHOD 08/08/2025 3:31 [facility] Lymphocytes Relative 39.8 % LAB HEMETOLOGY METHOD 08/08/2025 3:31 PM EDT [facility] Monocytes Relative 6.4 % LAB HEMETOLOGY METHOD 08/08/2025 3:31 PM EDT [facility] Eosinophils Relative 2.5 % LAB HEMETOLOGY METHOD 08/08/2025 3:31 PM EDT [facility] Basophils Relative 0.4 % LAB HEMETOLOGY METHOD 08/08/2025 3:31 PM EDT [facility] Immature Granulocytes Relative 0.4 % LAB HEMETOLOGY METHOD 08/08/2025 3:31 PM EDT [facility] Neutrophils Absolute 4.84 1.50 - 7.00 K/mcL LAB HEMETOLOGY METHOD 08/08/2025 3:[facility] Lymphocytes Absolute 3.82 1.00 - 5.00 K/mcL LAB HEMETOLOGY METHOD 08/08/2025 3:31 [facility] Monocytes Absolute 0.61 0.20 - 1.00 K/mcL LAB HEMETOLOGY METHOD 08/08/2025 3:31 PM EDT [facility] Eosinophils Absolute 0.24 0.00 - 0.50 K/mcL LAB HEMETOLOGY METHOD 08/08/2025 3:31 PM [facility] Basophils Absolute 0.04 0.00 - 0.20 K/mcL LAB HEMETOLOGY METHOD 08/08/2025 3:31 PM T [facility] Immature Granulocytes Absolute 0.04(H) 0.00 - 0.03 K/mcL LAB HEMETOLOGY METHOD 08/08/2025 3:31 PM [facility] Blood Venous blood specimen / Unknown Venipuncture / Unknown 08/08/2025 3:01 PM EDT 08/08/2025 3:24 PM EDT us Savanna Cotter MD LAB BLOOD ORDERABLES Final Resul t Performing Organization Address City/[facility]/ZIP Co de Phone Number [facility] [address] [place] [address], [place] [phone] * Activated partial thromboplastin time (08/08/2025 3:01 PM EDT) aPTT 37.3 24.1 - 39.3 sec LAB COAGULATION METHOD 08/08/2025 3:41 PM EDT [facility] Blood Venous blood specimen / Unknown Venipuncture / Unknown 08/08/2025 3:01 PM EDT 08/08/2025 3:24 PM EDT us Saavnna Cotter MD LAB BLOOD ORDERABLES Final Resul t Performing Organization Address [facility]/ZIP Co de Phone Number [facility] [address] [place] [address], [place] [phone] * Prothrombin time with INR (08/08/2025 3:01 PM EDT) Pathologist [facility] Protime 12.2 10.6 - 13.9 sec LAB COAGULATION METHOD 08/08/2025 3:41 PM EDT [facility] INR 1.0 LAB COAGULATION METHOD 08/08/2025 3:41 PM EDT [facility] Blood Venous blood specimen / Unknown Venipuncture / Unknown 08/08/2025 3:01 PM EDT 08/08/2025 3:24 PM EDT us Savanna Cotter MD LAB BLOOD ORDERABLES Final Resul t Performing Organization Address City/[facility]/ZIP Co de Phone Number [facility] [address] [place] [address], [place] [phone] * Type and screen (08/08/2025 3:01 PM EDT) ABO Group B 08/08/2025 6:05 PM EDT [facility] Rh Type Positive 08/08/2025 6:05 PM EDT [facility] Antibody Screen Negative 08/08/2025 6:05 PM EDT [facility] Blood Venous blood specimen / Unknown Venipuncture / Unknown 08/08/2025 3:01 PM EDT 08/08/2025 3:24 PM EDT us Savanna Cotter MD LAB BLOOD BANK TEST ORDERABLES F inal Result [facility] [address] [place] [address], * Basic metabolic panel (08/08/2025 3:01 PM EDT) Sodium 138 133 - 145 mmol/L LAB CHEMISTRY METHOD 08/08/2025 4:58 PM [facility] Potassium 3.9 3.5 - 5.5 mmol/L LAB CHEMISTRY METHOD 08/08/2025 4:58 PM [facility] Chloride 107 96 - 110 mmol/L LAB CHEMISTRY METHOD 08/08/2025 4:58 PM [facility] CO2 21 21 - 32 mmol/L LAB CHEMISTRY METHOD 08/08/2025 4:58 PM [facility] Anion Gap 10 3 - 11 LAB CHEMISTRY METHOD 08/08/2025 4:58 PM [facility] Glucose 80 70 - 100 mg/dL LAB CHEMISTRY METHOD 08/08/2025 4:58 PM [facility] BUN 9 5 - 25 mg/dL LAB CHEMISTRY METHOD 08/08/2025 4:58 PM [facility] Creatinine 0.54 0.50 - 1.10 mg/dL LAB CHEMISTRY METHOD 08/08/2025 4:58 PM [facility] eGFR 124 >=60 mL/min/1. 73m2 LAB CHEMISTRY METHOD 08/08/2025 4:58 PM EDT [facility] Comment:Calculation based on the Chronic Kidney Disease Epidemiology Collaboration (CKD-EPI) equation refit without adjustment for race. BUN/Creatinine Ratio 16.7 LAB CHEMISTRY METHOD 08/08/2025 4:58 PM EDT [facility] Calcium 9.3 8.5 - 10.5 mg/dL LAB CHEMISTRY METHOD 08/08/2025 4:58 PM EDT [facility] Blood Venous blood specimen / Unknown Venipuncture / Unknown 08/08/2025 3:01 PM EDT 08/08/2025 3:24 PM EDT us Savanna Cotter MD LAB BLOOD ORDERABLES Final Resul t [facility] [address] [place] [address], [place] [phone] * CT Chest wo Contrast (08/03/2025 2:03 PM EDT) Anatomical Region Laterality Modality Body Computed Tomogra phy 08/10/2025 12:5 9 PM EDT Impressions 08/10/2025 2:30 PM EDT Stable right hilar mass compared to 06/08/2025, positioned between the proximal right middle and lower lobe bronchi. -------- FINAL REPORT -------- Dictated By: RICHARD FERRARI Dictated Date: 08/10/2025 12:59 ET Assigned Physician: RICHARD FERRARI Reviewed and Electronically Signed By: RICHARD FERRARI Signed Date: 08/10/2025 14:30 ET Workstation ID: [id number] Transcribed By: Self Edit Transcribed Date: 08/10/2025 12:59 ET Narrative 08/10/2025 2:30 PM EDT PROCEDURE: Chest CT INDICATION: Lung nodule TECHNIQUE: Chest CT without contrast. Multi planar reformats were created and interpreted. The examination was performed utilizing dose reduction techniques. Total DLP 183 COMPARISON: 06/08/2025 FINDINGS: LUNGS/PLEURA: Central airways are patent. Right hilar mass measures 3 x 2 cm, similar compared to prior, and abuts the minor and major fissures centrally. The mass abuts the posterior wall of the right middle lobe bronchus and anterior wall of the right lower lobe bronchus. No endobronchial component is appreciated. No new nodules. No pleural effusion or pneumothorax. MEDIASTINUM: Thyroid gland is unremarkable. No other mediastinal or hilar lymphadenopathy. Cardiac chambers are normal in size. No pericardial effusion. Esophagus is normal. Normal thymic tissue in the anterior mediastinum is unchanged. CHEST WALL: No axillary lymphadenopathy or superficial hematoma. UPPER ABDOMEN:The visualized portions of the upper abdomen are unremarkable. BONES: Bones are normal for age. Procedure Note Richard Ferrari MD - 08/10/2025 PROCEDURE: Chest CT INDICATION: Lung nodule TECHNIQUE: Chest CT without contrast. Multi planar reformats were createdand interpreted. The examination was performed utilizing dose reductiontechniques. Total DLP 183 COMPARISON: 06/08/2025 FINDINGS: LUNGS/PLEURA: Central airways are patent. Right hilar mass measures 3 x 2cm, similar compared to prior, and abuts the minor and major fissurescentrally. The mass abuts the posterior wall of the right middle lobebronchus and anterior wall of the right lower lobe bronchus. Noendobronchial component is appreciated. No new nodules. No pleuraleffusion or pneumothorax. MEDIASTINUM: Thyroid gland is unremarkable. No other mediastinal or hilarlymphadenopathy. Cardiac chambers are normal in size. No pericardialeffusion. Esophagus is normal. Normal thymic tissue in the anteriormediastinum is unchanged. CHEST WALL: No axillary lymphadenopathy or superficial hematoma. UPPER ABDOMEN:The visualized portions of the upper abdomen areunremarkable. BONES: Bones are normal for age. IMPRESSION: Stable right hilar mass compared to 06/08/2025, positioned between theproximal right middle and lower lobe bronchi. -------- FINAL REPORT -------- Dictated By: RICHARD FERRARI Dictated Date: 08/10/2025 12:59 ET Assigned Physician: RICHARD FERRARI Reviewed and Electronically Signed By: RICHARD FERRARI Signed Date: 08/10/2025 14:30 ET Workstation ID: [id number] Transcribed By: Self Edit Transcribed Date: 08/10/2025 12:59 ET Savanna Cotter MD IMG CT PROCEDURES Final Result from Last 3 Months Additional Health Concerns Infection Onset Date Last Indicated Tuberculosis Rule-Out 08/17/2025 08/17/2025 Insurance [facility] Advance Directives * Full Code - Default (Latest Code Status on File) Date Activated Date Inactivated Comments 08/17/2025 11:52 AM 08/17/2025 5:51 PM This is or abhilash is used when code status has not been discussed with the patient, or code status is otherwise unknown/unconfirmed To update the patient's code status, place a code status order. Do not modify or discontinue any currently active code status orders. Care Teams Dental Nurse Relationship Specialty Start Date End Date Estiven Little MD [address] [place] [phone] PCP - General Internal Medicine 07/19/25
== END 2025-09-06 16:56 | disposition home or self-care (01) ==
PROVIDERS: PCP Internal Medicine; Visit Provider Physician Assistant Medical
DX: J06.9 Acute upper respiratory infection, unspecified (principal)

== ENCOUNTER 2025-09-06 16:10 | Outpatient (REF) | payer BC, SELFPAY ==
--- OUTSIDE RECORDS SUMMARY | 2025-09-07 12:33 | XMS_ITS | Clinical Summary ---
Author Organization [facility] Address [address] [place] [phone] Phone Care Team Providers Care Gas Leak Inspector Name Role Phone Marcio Mayer DO Primary Care Provider [phone] Medications levonorgestrel-e thinyl estradiol (AVIANE) 0.1-0.02 mg [...] topic Medical Devices Not on file [place] [address] [place] [address] [facility] Care Teams Gas Leak Inspector Relationship Specialty Start Date End Date Marcio Mayer DO PCP - General 09/07/17 Additional Source Comments The information contained in this document represents components of the legal health record. It is not the complete legal health record.[facility]
--- OUTSIDE RECORDS SUMMARY | 2025-09-07 12:33 | XMS_ITS | Clinical Summary ---
Author Organization [address] Address [address] [place] [address] Phone Care Team Providers Care Project Engineering Manager Name Role Phone Estiven Little MD Primary Care Provider [phone] Allergies No known active allergies Medications escitalopram (LEXAPRO) 10 mg tablet Take 1 tablet (10 mg total) by mouth at bedtime. Active Active Problems Problem Noted Date Diagnosed Date Lung mass 07/26/2025 Encounters Date Type Department Care Team Description 08/23/2025 2:30 PM EDT Office Visit Thoracic Surgery - [place] [address] [facility] [address] [place] [phone] Savanna Cotter MD Lung mass (Primary Dx) 08/17/2025 1:00 PM EDT - 08/17/2025 3:00 PM EDT Surgery [facility] Main OR [address] [place] [phone] Savanna Cotter MD Navigational bronchoscopy/EBUS with biopsies [18776 (CPT ) +5 more] 08/17/2025 12:22 PM EDT Anesthesia Event [facility] OR [address] [place] [phone] Patel Parsons MD Hard, Shannon, CRNA 08/17/2025 11:33 AM EDT - 08/17/2025 3:37 PM EDT Hospital Encounter [facility] OR [address] [place] [phone] Savanna Cotter MD Lung mass Discharge Disposition: Home or Self Care 08/17/2025 7:20 AM EDT - 08/17/2025 11:59 PM EDT Hospital Encounter [facility] Xray [address] [place] [phone] Pain Discharge Disposition: Home or Self Care 08/03/2025 1:28 PM EDT - 08/03/2025 11:59 PM EDT Hospital Encounter [facility] CT Scan [address] [place] [phone] Lung nodules Discharge Disposition: Home or Self Care 07/30/2025 Telephone Thoracic Surgery - [place] [address] [facility] [address] [place] [phone] Kianna Hoff MA 07/26/2025 3:00 PM EDT Consult Thoracic Surgery - [place] [address] [facility] [address] [place] [phone] Savanna Cotter MD Lung mass (Primary Dx) [...] ENDOTRACHEAL(NO CHARGE) Routine 08/17/2025 12:37 PM EDT VT CORE NDL BX LNG/MED PERQ 08/17/2025 12:21 PM EDT Lung mass Case Notes C-ARM VT BRONCHOSCOPY INCL FLUORO GUIDANCE W BRONCHIAL/ENDOBRONCHI AL BX SGL/MULT 08/17/2025 12:21 PM EDT Lung mass Case Notes C-ARM VT BRONCHOSCOPY RIGID/FLEXIBLE W/TRANSBRONCHIAL LUNG BIOPSY(S) SINGLE LOBE 08/17/2025 12:21 PM EDT Lung mass Case Notes C-ARM VT BRONCHOSCOPY RIGID/FLEXIBLE COMPUTER ASSISTED IMAGE GUIDED NAVIGATION 08/17/2025 12:21 PM EDT Lung mass Case Notes C-ARM VT BRONCHOSCOPY INCL FLUOROSCOPIC GUID W EBUS DURING PERIPHERAL LESION 08/17/2025 12:21 PM EDT Lung mass Case Notes C-ARM VT BRONCHOSCOPY INCL FLUROSCOPIC GUIDANCE W PLCMNT FIDUCIAL [...] Signed Date: 08/17/2025 14:34 ET Workstation ID: [id number] Transcribed By: Self Edit Transcribed Date: 08/17/2025 [...] Signed Date: 08/17/2025 14:34 ET Workstation ID: [id number] Transcribed By: Self Edit Transcribed Date: 08/17/2025 [...] at 3 days 08/20/2025 11:[address] [facility] Gram Stain Result No polymorphonuclear leukocytes, No epithelial cells, and No organisms noted 08/20/2025 11:[address] [facility] Wash Structure of lower lobe of right lung / Unknown 08/17/2025 1:00 PM EDT 08/17/2025 1:25 PM EDT us Savanna Cotter MD LAB MICROBIOLOGY - GENERAL ORDER JAN Final Result Performing Organization Address City/[facility]/ZIP Co de Phone Number [facility] [address] [place] [address], [place] [phone] * Concentration (08/17/2025 1:00 PM EDT) AFB Concentration Performed 6:05 PM EDT [facility] Wash Structure of lower lobe of right lung / Unknown 08/17/2025 1:00 PM EDT 08/17/2025 1:25 PM EDT Narrative [facility] - 08/18/2025 6:05 PM EDT Performed at: - [facility] [id number] Telecommunication Lines Repairer: Pooja Dai MD, Phone: [phone] us Savanna Cotter MD LAB BLOOD ORDERABLES Final Resul t Performing Organization Address [facility] [place]/[facility]/ZIP Co de Phone Number [facility] * Acid fast bacilli stain (08/17/2025 1:00 PM EDT) AFB Stain Result No Acid fast bacilli seen on direct smear (Fuchsin method, 1000x) No Acid Fast Bacilli seen on direct smear 08/17/2025 8:[address] [facility] Wash Structure of lower lobe of right lung / Unknown 08/17/2025 1:00 PM EDT 08/17/2025 1:25 PM EDT us Savanna Cotter MD LAB MICROBIOLOGY - GENERAL ORDER JAN Final Result Performing Organization Address City/[facility]/ZIP Co de Phone Number [facility] [address] [place] [address], [place] [phone] * Non-gynecologic cytology (08/17/2025 12:58 PM EDT) [...] small lymphocytes. Please see concurrent core biopsy, [id number], for characterization . 08/23/2025 10:30 AM [facility] at 1030 EDT Specimen A Adequacy Satisfactory for evaluation 08/23/2025 10:30 AM [facility] Specimen B Adequacy Satisfactory for evaluation 08/23/2025 10:30 AM [facility] Specimen C Adequacy Satisfactory for evaluation 08/23/2025 10:30 AM [facility] Specimen D Adequacy Satisfactory for evaluation 08/23/2025 10:30 AM [facility] Gross Description A. Lung, [...] 11.5 hours. rp 08/23/2025 10:[address] [facility] Disclaimer Unless otherwise specified, all tissue is 10% NB formalin fixed and paraffin embedded. Technical cytopathology services provided by [facility], at [address] [place] [address] (CLIA # [id number]/Bisi Walker MD, Prize Fighter.) 08/23/2025 10:[address] [facility] Brushing Structure of lower lobe [...] MD LAB CYTOLOGY ORDERABLES Final Re sult [facility]) [facility] [address] [place] [address], * Tissue exam (08/17/2025 12:51 PM EDT) Final Diagnosis A. Lung, Right Lower Lobe, Nodule - Cryo Biopsy: Mixed population of bland lymphocytes. No neoplasm identified. See comment. B. Mediastinum, Right Hilar Mass, Biopsy: Mixed population of bland lymphocytes. No neoplasm identified. See comment. 10/02/202 5 10:[address] [facility] at 1021 EDT Comment Histologic [...] Controls stain appropriately. 5 10:[address] [facility] Gross Description A. Lung, Right [...] is placed in RPMI and submitted to [facility], [facility], for flow cytometric studies. The balance of the specimen is submitted into cassette, one and two pieces respectively (one H&E, +15 unstained slides for potential immunohistochemical stains and one H&E), conserving tissue, cut at 3 m. TS 10:21 AM EDT [facility]) [facility] Disclaimer NOTE: The immunohistochemical tests and in situ hybridization tests were developed and their performance characteristics were determined by [facility]. They have not been [...] fixed and paraffin embedded. 10:[address] [facility] Tissue Structure of lower lobe of right lung / Unknown 08/17/2025 12:51 PM EDT 08/17/2025 1:35 PM EDT Tissue specimen (specimen) Mediastinal structure / Unknown 08/17/2025 1:18 PM EDT 08/17/2025 1:35 PM EDT us Savanna Cotter MD LAB PATHOLOGY ORDERABLES Final R esult [facility]) [facility] [address] [place] [address], [place] [phone] * TH AN ENDOTRACHEAL(NO CHARGE) (08/17/2025 12:37 PM EDT) Cooper Anderson DO - 08/17/2025 12:37 PM EDT Cooper Dos Santos DO 08/17/2025 2:51 PM Other Attempts Unsuccessful attempted endotracheal techniques: direct laryngoscopy General Information and Staff Patient location during procedure: OR Anesthesiologist: Cooper Dos Santos DO Resident/PERISHABLE FREIGHT INSPECTOR: Renetta Olivia CRNA Performed: resident/PERISHABLE FREIGHT INSPECTOR/CAA Performed by: Renetta Olivia CRNA Authorized by: [...] GEMUSE QTc 397 ms GEMUSE P Wave Girard 44 degrees GEMUSE R Girard 35 degrees GEMUSE T Girard 37 degrees GEMUSE ECG Interpretation Normal sinus rhythm with sinus arrhythmia Normal ECG No previous ECGs available Confirmed by MD HONEYCUTT JOHN ([id number]) on 08/08/2025 5:37:18 PM GEMUSE 08/08/2025 3:15 PM EDT 08/08/2025 5:37 PM EDT Savanna Cotter MD ECG ORDERABLES Final Result GEMUSE * (ABNORMAL) CBC auto differential (08/08/2025 3:01 PM EDT) WBC 9.6 4.8 - 10.8 K/[facility] LAB HEMETOLOGY METHOD 08/08/2025 3:[address] [facility] RBC 4.70 3.80 - 4.80 M/mcL LAB HEMETOLOGY METHOD 08/08/2025 3:[address] [facility] Hemoglobin 14.3 11.5 - 16.0 g/dL LAB HEMETOLOGY METHOD 08/08[facility]25 [facility] Hematocrit 40.0 35.0 - 47.0 % LAB HEMETOLOGY METHOD 08/08/2025 3:[facility] MCV 85.1 79.0 - 98.0 FL LAB HEMETOLOGY METHOD 08/08/2025 3:31 [facility] MCH 30.4 27.0 - 32.0 pcg LAB HEMETOLOGY METHOD 08/08/2025 3:31 PM [facility] MCHC 35.8 32.0 - 37.0 g/dL LAB HEMETOLOGY METHOD 08/08/2025 3:31 PM [facility] RDW 11.9 11.0 - 15.0 % LAB HEMETOLOGY METHOD 08/08/2025 3:31 PM [facility] Platelets 265 130 - 400 K/mcL LAB HEMETOLOGY METHOD 08/08/2025 3:31 PM [facility] MPV 8.1 7.0 - 11.0 FL LAB HEMETOLOGY METHOD 08/08/2025 3:31 [facility] NRBC 0.0 <1.0 % LAB HEMETOLOGY METHOD 08/08/2025 3:31 PM [facility] NRBC Absolute 0.00 <0.10 K/mcL LAB HEMETOLOGY METHOD 08/08/2025 3:31 [facility] Neutrophils Relative 50.5 % LAB HEMETOLOGY METHOD 08/08/2025 3:31 [facility] Lymphocytes Relative 39.8 % LAB HEMETOLOGY METHOD 08/08/2025 3:[address] [facility] Monocytes Relative 6.4 % LAB HEMETOLOGY METHOD 08/08/2025 3:[address] [facility] Eosinophils Relative 2.5 % LAB HEMETOLOGY METHOD 08/08/2025 3:[address] [facility] Basophils Relative 0.4 % LAB HEMETOLOGY METHOD 08/08/2025 3:[address] [facility] Immature Granulocytes Relative 0.4 % LAB HEMETOLOGY METHOD 08/08/2025 3:[address] [facility] Neutrophils Absolute 4.84 1.50 - 7.00 K/mcL LAB HEMETOLOGY METHOD 08/08/2025 3:31 [facility] Lymphocytes Absolute 3.82 1.00 - 5.00 K/mcL LAB HEMETOLOGY METHOD 08/08/2025 3:31 [facility] Monocytes Absolute 0.61 0.20 - 1.00 K/mcL LAB HEMETOLOGY METHOD 08/08/2025 3:[address] [facility] Eosinophils Absolute 0.24 0.00 - 0.50 K/mcL LAB HEMETOLOGY METHOD 08/08/2025 3:31 PM [facility] Basophils Absolute 0.04 0.00 - 0.20 K/mcL LAB HEMETOLOGY METHOD 08/08/2025 3:[address] [facility] Immature Granulocytes Absolute 0.04(H) 0.00 - 0.03 K/mcL LAB HEMETOLOGY METHOD 08/08/2025 3:31 PM [facility] Blood Venous blood specimen / Unknown Venipuncture / Unknown 08/08/2025 3:01 PM EDT 08/08/2025 3:24 PM EDT us Savanna Cotter MD LAB BLOOD ORDERABLES Final Resul t Performing Organization Address City/[facility]/ZIP Co de Phone Number [facility] [address] [place] [address], [place] [phone] * Activated partial thromboplastin time (08/08/2025 3:01 PM EDT) aPTT 37.3 24.1 - 39.3 sec LAB COAGULATION METHOD 08/08/2025 3:[address] [facility] Blood Venous blood specimen / Unknown Venipuncture / Unknown 08/08/2025 3:01 PM EDT 08/08/2025 3:24 PM EDT us Savanna Cotter MD LAB BLOOD ORDERABLES Final Resul t Performing Organization Address [facility] [place]/[facility]/ZIP Co de Phone Number [facility] [address] [place] [address], [place] [phone] * Prothrombin time with INR (08/08/2025 3:01 PM EDT) Pathologist [facility] Protime 12.2 10.6 - 13.9 sec LAB COAGULATION METHOD 08/08/2025 3:[address] [facility] INR 1.0 LAB COAGULATION METHOD 08/08/2025 3:[address] [facility] Blood Venous blood specimen / Unknown Venipuncture / Unknown 08/08/2025 3:01 PM EDT 08/08/2025 3:24 PM EDT us Savanna Cotter MD LAB BLOOD ORDERABLES Final Resul t Performing Organization Address City/[facility]/ZIP Co de Phone Number [facility] [address] [place] [address], [place] [phone] * Type and screen (08/08/2025 3:01 PM EDT) ABO Group B 08/08/2025 6:[address] [facility] Rh Type Positive 08/08/2025 6:[address] [facility] Antibody Screen Negative 08/08/2025 6:[address] [facility] Blood Venous blood specimen / Unknown Venipuncture / Unknown 08/08/2025 3:01 PM EDT 08/08/2025 3:24 PM EDT us Savanna Cotter MD LAB BLOOD BANK TEST ORDERABLES F inal Result [facility] [address] [place] [address], * Basic metabolic panel (08/08/2025 3:01 PM EDT) Sodium 138 133 - 145 mmol/L LAB CHEMISTRY METHOD 08/08/2025 4:58 PM [facility] Potassium 3.9 3.5 - 5.5 mmol/L LAB CHEMISTRY METHOD 08/08/2025 4:58 PM [facility] Chloride 107 96 - 110 mmol/L LAB CHEMISTRY METHOD 08/08/2025 4:58 PM [facility] CO2 21 21 - 32 mmol/L LAB CHEMISTRY METHOD 08/08/2025 4:58 PM [facility] Anion Gap 10 3 - 11 LAB CHEMISTRY METHOD 08/08/2025 4:58 PM [facility] Glucose 80 70 - 100 mg/dL LAB CHEMISTRY METHOD 08/08/2025 4:58 PM [facility] BUN 9 5 - 25 mg/dL LAB CHEMISTRY METHOD 08/08/2025 4:58 PM [facility] Creatinine 0.54 0.50 - 1.10 mg/dL LAB CHEMISTRY METHOD 08/08/2025 4:58 PM [facility] eGFR 124 >=60 mL/min/1. 73m2 LAB CHEMISTRY METHOD 08/08/2025 4:[address] [facility] Comment:Calculation based on the Chronic Kidney Disease Epidemiology Collaboration (CKD-EPI) equation refit without adjustment for race. BUN/Creatinine Ratio 16.7 LAB CHEMISTRY METHOD 08/08/2025 4:[address] [facility] Calcium 9.3 8.5 - 10.5 mg/dL LAB CHEMISTRY METHOD 08/08/2025 4:[address] [facility] Blood Venous blood specimen / Unknown Venipuncture / Unknown 08/08/2025 3:01 PM EDT 08/08/2025 3:24 PM EDT us Savanna Cotter MD LAB BLOOD ORDERABLES Final Resul t [facility] [address] [place] [address], [place] [phone] * CT Chest wo Contrast (08/03/2025 2:03 [...] Signed Date: 08/10/2025 14:30 ET Workstation ID: [id number] Transcribed By: Self Edit Transcribed Date: 08/10/2025 [...] Signed Date: 08/10/2025 14:30 ET Workstation ID: [id number] Transcribed By: Self Edit Transcribed Date: 08/10/2025 12:59 ET Savanna Cotter MD IMG CT PROCEDURES Final Result from Last 3 Months Additional Health Concerns Infection Onset Date Last Indicated Tuberculosis Rule-Out 08/17/2025 08/17/2025 Insurance [facility] Advance Directives * Full [...] currently active code status orders. Care Teams Project Engineering Manager Relationship Specialty Start Date End Date Estiven Little MD [address] [place] [phone] PCP - General Internal Medicine 07/19/25
[2025-09-07 13:15] LABS: Chlamydia pneumoniae PCR Not Detected (Not Detect.); Coronavirus 229E PCR Not Detected (Not Detect.); Coronavirus HKU1 PCR Not Detected (Not Detect.); Coronavirus NL63 PCR Not Detected (Not Detect.); Coronavirus OC43 PCR Not Detected (Not Detect.); RSV PCR Not Detected (Not Detect.); Rhino/Enterovirus PCR Detected (Not Detect.)
[2025-09-07 13:40] LABS: Influenza A H1 PCR Not Detected (Not Detect.); Influenza A H1-2009 PCR Not Detected (Not Detect.); Influenza A H3 PCR Not Detected (Not Detect.); SARS-CoV-2 PCR Not Detected (Not Detect.)
== END 2025-09-06 16:11 | disposition home or self-care (01) ==
LOC: HO.LNP 16:10
PROVIDERS: PCP Internal Medicine; Visit Provider Physician Assistant Medical
DX: J06.9 Acute upper respiratory infection, unspecified (principal)
CPT/HCPCS: 87633

== ENCOUNTER 2025-09-12 15:57 | Outpatient (AMB) | payer BC, SELFPAY ==
[2025-09-12 16:02] VITALS: BP 102/60; PULSE 68; O2SAT 97; BMI 29.8
--- NOTE | 2025-09-12 16:02 | A.OFFVIS_ITS ---
Vital Signs 09/12/25 16:02 Height 4 ft 8 in Weight 133 lb BMI 29.8 BP 102/60 Blood Pressure Location Rt brachial Position Sitting Pulse 68 Pulse Source Pulse Oximeter Pulse Oximetry (%) 97 Oxygen Delivery Method Room Air Intake Visit Reasons: Discuss Biopsy Results Allergies No Known Allergies Allergy (Verified 09/12/25 16:04) HPI HPI Discuss Biopsy Results: Details: Mariana is a pleasant 35 year old female, never smoker, with no significant past medical history. She was initially referred by ED after incidental finding on CT chest without contrast revealing 2.6 cm ovoid shaped lesion near right pulmonary hilum with associated lymphadenopathy. She was sent for chest CT with contrast to better differentiate structures ultimately had EBUS with Dr. Spencer on 12/14/24 Pathology: Cellular specimen consisting predominantly of small lymphocytes with scant cytoplasm and mature chromatin; admixed are somewhat larger forms. Background benign bronchial epithelial cells are present. No features of metastatic disease are present; diagnostic features of a lymphoproliferative disorder are not present. The cell block has similar findings. Concurrent flow cytometry is negative. At that time findings consistent with possible harmartoma and agreed on surveillence. She had repeat chest CT 6 months later 05/2025 which demonstrated an increase in right hilar mass and was sent for thoracic evaluation for further work up. She underwent biopsy with Dr. Cotter 4 weeks ago and pathology reportedly negative for malignancy, no records to review today. At this time she denies any respiratory symptoms. [facility] Medical History Mediastinal lymphadenopathy Pulmonary nodule Cognitive change Anxiety Surgical History [place] teeth removed Hx of tonsillectomy H/O left wrist surgery Family History Mother Hypothyroid Father Cancer Mental health disorder Social History Housing: House Alcohol intake: never Patient Tobacco Use Status: Never used Tobacco e-Cigarette/Vaping Use: Never Used Substance Use Type: Marijuana service: No Current occupational status: employed Cognitive needs: No Hearing needs: No Vision needs: Yes Female Reproductive History Menstrual Age of Menarche: 13 Review of Systems Const Denies chills, Denies excessive sweating, Denies fever(s), Denies headache(s) and Denies night sweats Eyes Denies dry eyes, Denies irritation and Denies itchy eyes ENT Reports Normal hearing present, Denies headache(s), Denies nasal congestion, Denies nasal discharge, Denies post nasal drip and Denies sore throat Card Denies chest pain, Denies chest pain at rest, Denies chest pain with activity, Denies claudication, Denies leg edema, Denies dyspnea, Denies dyspnea on exertion, Denies orthopnea and Denies paroxysmal nocturnal dyspnea Resp Denies chest congestion, Denies cough, Denies excessive phlegm production, Denies pain on inspiration, Denies pain with cough, Denies dyspnea, Denies dyspnea on exertion, Denies stridor and Denies wheezing Musc Denies myalgias Neuro Reports Normal hearing present and Denies headache(s) Endo Denies excessive sweating Alfonzo/Lymph Denies lymphadenopathy Aller/Immun Denies itchy eyes, Denies seasonal rhinorrhea and Denies wheezing Physical Exam Vital Signs: Last Vital Signs Pulse 68 09/12/25 16:02 BP 102/60 09/12/25 16:02 Pulse Ox 97 09/12/25 16:02 Oxygen Delivery Method Room Air 09/12/25 16:02 BMI result Body Mass Index 29.8 Const General: cooperative, healthy appearing, comfortable, no acute distress, well developed and alert Nutritional Appearance: obese Orientation/consciousness: patient oriented x3 Limitations: no limitations HEENT Head: Yes normal to inspection, Yes normocephalic and Yes atraumatic Ears: hearing grossly normal bilaterally and external ears normal Eyes General: appearance normal, both eyes and all related structures Eyelids: Yes eyelids normal Sclerae: sclerae normal EOM: EOMs intact bilaterally Neck Neck: Yes normal visual inspection and Yes no lymphadenopathy Lymphatic: no lymphadenopathy noted Chest Chest palpation & inspection: normal inspection of the chest Resp Effort & Inspection: normal respiratory effort, able to speak in complete sentences, no audible wheezes, no cough, no stridor, not tachypneic, no tripod positioning and no use of accessory muscles Auscultation: clear to auscultation bilaterally Cardio Jugular venous distension: no JVD Rate: regular rate Rhythm: regular rhythm Skin Other: warm, dry General skin exam: no rashes or lesions noted Neuro General: patient oriented x3 Cranial nerves: Yes Normal hearing present Cognition (Neuro): normal cognition Gait exam (Neuro): Normal gait present Extrem General: Yes normal to inspection, Yes capillary refill normal, Yes no clubbing, cyanosis or edema and Yes no pedal edema Psych Appearance: grossly normal and well kempt Speech and movement: Normal speech and movement present and Clear speech present Affect: normal affect Attitude: cooperative Thought process: Normal thought process present Thought content: Normal thought content present Insight: Good insight present (Psych) Judgement: Good judgement present (Psych) Assessment & Plan Assessment & Plan (1) Pulmonary nodule: Code(s): R91.1 - Solitary pulmonary nodule Category: Medical (2) Mediastinal lymphadenopathy: Code(s): R59.0 - Localized enlarged lymph nodes Category: Medical Plan At this time, Mariana denies any respiratory symptoms. She is aware to call if symptoms change. Will reach out to thoracic to obtain pathology report and last office note. She also reports undergoing [facility] at [facility] in July, will obtain report as well as images and repeat chest CT in 6 months, January 2026 to assess stability of right hilar nodule. All questions were answered and patient is in agreement of plan. Will follow-up to review results or sooner reviewed. Orders: Orders CT chest w IV con 5 Months R59.0 - Localized enlarged lymph nodes, R91.1 - Solitary pulmonary nodule Coding Level of Care Code Est Pt Level 4 (06597) Diagnoses Pulmonary nodule R91.1 Mediastinal lymphadenopathy R59.0
--- OUTSIDE RECORDS SUMMARY | 2025-09-12 21:57 | XMS_ITS | Clinical Summary ---
Author Organization [facility] Address [address] [place] [phone] Phone Care Team Providers Care Employee Development Manager Name Role Phone Marcio Mayer DO Primary Care Provider [phone] Medications levonorgestrel-e thinyl estradiol (AVIANE) 0.1-0.02 mg [...] Devices Not on file [place] [address] [address] [facility] Care Teams Employee Development Manager Relationship Specialty Start Date End Date Marcio Mayer DO PCP - General 09/07/17 Additional Source Comments The information contained in this document represents components of the legal health record. It is not the complete legal health record.[facility]
--- OUTSIDE RECORDS SUMMARY | 2025-09-12 21:57 | XMS_ITS | Clinical Summary ---
Author Organization [address] Address [address] [place] [address] Phone Care Team Providers Care Mixing Technician Name Role Phone Estiven Little MD Primary Care Provider Allergies No known active allergies Medications escitalopram (LEXAPRO) 10 mg tablet Take 1 tablet (10 mg total) by mouth at bedtime. Active Active Problems Problem Noted Date Diagnosed Date Lung mass 07/26/2025 Encounters Date Type Department Care Team Description 08/23/2025 2:30 PM EDT Office Visit Thoracic Surgery - [place] [address] [facility] [address] [place] [phone] Savanna Cotter MD Lung mass (Primary Dx) 08/17/2025 1:00 PM EDT - 08/17/2025 3:00 PM EDT Surgery [facility] Main OR [address] [place] [phone] Savanna Cotter MD Navigational bronchoscopy/EBUS with biopsies [08196 (CPT ) +5 more] 08/17/2025 12:22 PM EDT Anesthesia Event [facility] OR [address] [place] [phone] Patel Parsons MD Hard, Shannon, CRNA 08/17/2025 11:33 AM EDT - 08/17/2025 3:37 PM EDT Hospital Encounter [facility] OR [address] [place] [phone] Savanna Cotter MD Lung mass Discharge Disposition: Home or Self Care 08/17/2025 7:20 AM EDT - 08/17/2025 11:59 PM EDT Hospital Encounter [facility] Xray [address] [place] [phone] Pain Discharge Disposition: Home or Self Care 08/03/2025 1:28 PM EDT - 08/03/2025 11:59 PM EDT Hospital Encounter [facility] CT Scan [address] [place] [phone] Lung nodules Discharge Disposition: Home or Self Care 07/30/2025 Telephone Thoracic Surgery - [place] [address] [facility] [address] [place] [phone] Kianna Hoff MA 07/26/2025 3:00 PM EDT Consult Thoracic Surgery - [place] [address] [facility] [address] [place] [phone] Savanna Cotter MD Lung mass (Primary Dx) [...] ENDOTRACHEAL(NO CHARGE) Routine 08/17/2025 12:37 PM EDT DE CORE NDL BX LNG/MED PERQ 08/17/2025 12:21 PM EDT Lung mass Case Notes C-ARM DE BRONCHOSCOPY INCL FLUORO GUIDANCE W BRONCHIAL/ENDOBRONCHI AL BX SGL/MULT 08/17/2025 12:21 PM EDT Lung mass Case Notes C-ARM DE BRONCHOSCOPY RIGID/FLEXIBLE W/TRANSBRONCHIAL LUNG BIOPSY(S) SINGLE LOBE 08/17/2025 12:21 PM EDT Lung mass Case Notes C-ARM DE BRONCHOSCOPY RIGID/FLEXIBLE COMPUTER ASSISTED IMAGE GUIDED NAVIGATION 08/17/2025 12:21 PM EDT Lung mass Case Notes C-ARM DE BRONCHOSCOPY INCL FLUOROSCOPIC GUID W EBUS DURING PERIPHERAL LESION 08/17/2025 12:21 PM EDT Lung mass Case Notes C-ARM DE BRONCHOSCOPY INCL FLUROSCOPIC GUIDANCE W PLCMNT FIDUCIAL [...] infiltrate. -------- FINAL REPORT -------- Dictated By: oLrie Chairez Dictated Date: 08/17/2025 14:33 ET Assigned Physician: Lorie Chairez Reviewed and Electronically Signed By: Lorie Chairez Signed Date: 08/17/2025 14:34 ET Workstation ID: [id number] Transcribed By: Self Edit Transcribed Date: 08/17/2025 [...] Signed Date: 08/17/2025 14:34 ET Workstation ID: [id number] Transcribed By: Self Edit Transcribed Date: 08/17/2025 [...] at 3 days 08/20/2025 11:01 AM EDT [facility] Gram Stain Result No polymorphonuclear leukocytes, No epithelial cells, and No organisms noted 08/20/2025 11:01 AM EDT [facility] Wash Structure of lower lobe of right lung / Unknown 08/17/2025 1:00 PM EDT 08/17/2025 1:25 PM EDT us Savanna Cotter MD LAB MICROBIOLOGY - GENERAL ORDER JAN Final Result Performing Organization Address City/[facility]/ZIP Co de Phone Number [facility] [address] [place] [address], [place] [phone] * Concentration (08/17/2025 1:00 PM EDT) AFB Concentration Performed 6:05 PM EDT [facility] Wash Structure of lower lobe of right lung / Unknown 08/17/2025 1:00 PM EDT 08/17/2025 1:25 PM EDT Narrative [facility] - 08/18/2025 6:05 PM EDT Performed at: - [facility] [id number] Dispensing And Measuring Optician: Pooja Dai MD, Phone: [phone] us Savanna Cotter MD LAB BLOOD ORDERABLES Final Resul t Performing Organization Address [facility]/ZIP Co de Phone Number [facility] * Acid fast bacilli stain (08/17/2025 1:00 PM EDT) AFB Stain Result No Acid fast bacilli seen on direct smear (Fuchsin method, 1000x) No Acid Fast Bacilli seen on direct smear 08/17/2025 8:07 PM EDT [facility] Wash Structure of lower lobe of right lung / Unknown 08/17/2025 1:00 PM EDT 08/17/2025 1:25 PM EDT us Savanna Cotter MD LAB MICROBIOLOGY - GENERAL ORDER JAN Final Result Performing Organization Address City/[facility]/ZIP Co de Phone Number [facility] [address] [place] [address], [place] [phone] * Non-gynecologic cytology (08/17/2025 12:58 PM EDT) [...] small lymphocytes. Please see concurrent core biopsy, [id number], for characterization . 08/23/2025 10:30 AM [facility] at 1030 EDT Specimen A Adequacy Satisfactory for evaluation 08/23/2025 10:30 AM [facility] Specimen B Adequacy Satisfactory for evaluation 08/23/2025 10:30 AM [facility] Specimen C Adequacy Satisfactory for evaluation 08/23/2025 10:30 AM [facility] Specimen D Adequacy Satisfactory for evaluation 08/23/2025 10:30 AM [facility] Gross Description A. Lung, Right [...] 11.5 hours. rp 08/23/2025 10:30 AM EDT [facility] Disclaimer Unless otherwise specified, all tissue is 10% NB formalin fixed and paraffin embedded. Technical cytopathology services provided by [facility], at [address] [place] [address] (CLIA # [id number]/Bisi Walker MD, Attendant [employer]odging [employer]ilities.) 08/23/2025 10:30 AM EDT [facility] Brushing Structure of lower [...] MD LAB CYTOLOGY ORDERABLES Final Re sult [facility] [address] [place] [address], * Tissue exam (08/17/2025 12:51 PM EDT) Final Diagnosis A. Lung, Right Lower Lobe, Nodule - Cryo Biopsy: Mixed population of bland lymphocytes. No neoplasm identified. See comment. B. Mediastinum, Right Hilar Mass, Biopsy: Mixed population of bland lymphocytes. No neoplasm identified. See comment. 10/02/202 5 10:21 AM EDT [facility] at 1021 EDT Comment [...] Controls stain appropriately. 5 10:21 AM EDT [facility] Gross Description A. Lung, [...] is placed in RPMI and submitted to [facility], for flow cytometric studies. The balance of the specimen is submitted into cassette, one and two pieces respectively (one H&E, +15 unstained slides for potential immunohistochemical stains and one H&E), conserving tissue, cut at 3 m. TS 10:21 AM EDT [facility] Disclaimer NOTE: The immunohistochemical tests and in situ hybridization tests were developed and their performance characteristics were determined by [facility]. They have not been cleared [...] fixed and paraffin embedded. 10:21 AM EDT [facility] Tissue Structure of lower lobe of right lung / Unknown 08/17/2025 12:51 PM EDT 08/17/2025 1:35 PM EDT Tissue specimen (specimen) Mediastinal structure / Unknown 08/17/2025 1:18 PM EDT 08/17/2025 1:35 PM EDT us Savanna Cotter MD LAB PATHOLOGY ORDERABLES Final R esult [facility] [address] [place] [address], [place] [phone] * TH AN ENDOTRACHEAL(NO CHARGE) (08/17/2025 12:37 PM EDT) Cooper Anderson DO - 08/17/2025 12:37 PM EDT Cooper Dos Santos DO 08/17/2025 2:51 PM Other Attempts Unsuccessful attempted endotracheal techniques: direct laryngoscopy General Information and Staff Patient location during procedure: OR Anesthesiologist: Cooper Dos Santos DO Resident/VISUAL MERCHANDISING ASSISTANT: eRnetta Olivia CRNA Performed: resident/VISUAL MERCHANDISING ASSISTANT/CAA Performed by: Renetta Olivia CRNA Authorized by: [...] GEMUSE QTc 397 ms GEMUSE P Wave Kamuela 44 degrees GEMUSE R Kamuela 35 degrees GEMUSE T Kamuela 37 degrees GEMUSE ECG Interpretation Normal sinus rhythm with sinus arrhythmia Normal ECG No previous ECGs available Confirmed by MD HONEYCUTT JOHN ([id number]) on 08/08/2025 5:37:18 PM GEMUSE 08/08/2025 3:15 PM EDT 08/08/2025 5:37 PM EDT Savanna Cotter MD ECG ORDERABLES Final Result GEMUSE * (ABNORMAL) CBC auto differential (08/08/2025 3:01 PM EDT) WBC 9.6 4.8 - 10.8 K/[facility] LAB HEMETOLOGY METHOD 08/08/2025 3:31 PM EDT [facility] RBC 4.70 3.80 - 4.80 M/mcL LAB HEMETOLOGY METHOD 08/08/2025 3:31 PM EDT [facility] Hemoglobin 14.3 11.5 - 16.0 g/dL LAB HEMETOLOGY METHOD 08/[facility]25 [facility] Hematocrit 40.0 35.0 - 47.0 % LAB HEMETOLOGY METHOD 08/08/2025 3:[facility] MCV 85.1 79.0 - 98.0 FL LAB HEMETOLOGY METHOD 08/08/2025 3:31 [facility] MCH 30.4 27.0 - 32.0 pcg LAB HEMETOLOGY METHOD 08/08/2025 3:31 PM [facility] MCHC 35.8 32.0 - 37.0 g/dL LAB HEMETOLOGY METHOD 08/08/2025 3:31 PM [facility] RDW 11.9 11.0 - 15.0 % LAB HEMETOLOGY METHOD 08/08/2025 3:31 PM [facility] Platelets 265 130 - 400 K/mcL LAB HEMETOLOGY METHOD 08/08/2025 3:31 PM [facility] MPV 8.1 7.0 - 11.0 FL [...] LAB HEMETOLOGY METHOD 08/08/2025 3:31 PM EDT [facility] Monocytes Relative 6.4 % LAB HEMETOLOGY METHOD 08/08/2025 3:31 PM EDT [facility] Eosinophils Relative 2.5 % LAB HEMETOLOGY METHOD 08/08/2025 3:31 PM EDT [facility] Basophils Relative 0.4 % LAB HEMETOLOGY METHOD 08/08/2025 3:31 PM EDT [facility] Immature Granulocytes Relative 0.4 % LAB HEMETOLOGY METHOD 08/08/2025 3:31 PM EDT [facility] Neutrophils Absolute 4.84 1.50 - 7.00 K/mcL LAB HEMETOLOGY METHOD 08/08/2025 3:[facility] Lymphocytes Absolute 3.82 1.00 - 5.00 K/mcL LAB HEMETOLOGY METHOD 08/08/2025 3:[facility] Monocytes Absolute 0.61 0.20 - 1.00 K/mcL LAB HEMETOLOGY METHOD 08/08/2025 3:31 PM EDT [facility] Eosinophils Absolute 0.24 0.00 - 0.50 K/mcL LAB HEMETOLOGY METHOD 08/08/2025 3:31 PM [facility] Basophils Absolute 0.04 0.00 - 0.20 K/mcL LAB HEMETOLOGY METHOD 08/08/2025 3:31 PM T [facility] Immature Granulocytes Absolute 0.04(H) 0.00 - 0.03 K/mcL LAB HEMETOLOGY METHOD 08/08/2025 3:31 PM [facility] Blood Venous blood specimen / Unknown Venipuncture / Unknown 08/08/2025 3:01 PM EDT 08/08/2025 3:24 PM EDT us Savanna Cotter MD LAB BLOOD ORDERABLES Final Resul t Performing Organization Address City/[facility]/ZIP Co de Phone Number [facility] [address] [place] [address], [place] [phone] * Activated partial thromboplastin time (08/08/2025 3:01 PM EDT) aPTT 37.3 24.1 - 39.3 sec LAB COAGULATION METHOD 08/08/2025 3:41 PM EDT [facility] Blood Venous blood specimen / Unknown Venipuncture / Unknown 08/08/2025 3:01 PM EDT 08/08/2025 3:24 PM EDT us Savanna Cotter MD LAB BLOOD ORDERABLES Final Resul t Performing Organization Address [facility]/ZIP Co de Phone Number [facility] [address] [place] [address], [place] [phone] * Prothrombin time with INR (08/08/2025 3:01 PM EDT) Pathologist [facility] Protime 12.2 10.6 - 13.9 sec LAB COAGULATION METHOD 08/08/2025 3:41 PM EDT [facility] INR 1.0 LAB COAGULATION METHOD 08/08/2025 3:41 PM EDT [facility] Blood Venous blood specimen / Unknown Venipuncture / Unknown 08/08/2025 3:01 PM EDT 08/08/2025 3:24 PM EDT us Savanna Cotter MD LAB BLOOD ORDERABLES Final Resul t Performing Organization Address City/[facility]/ZIP Co de Phone Number [facility] [address] [place] [address], [place] [phone] * Type and screen (08/08/2025 3:01 PM EDT) ABO Group B 08/08/2025 6:05 PM EDT [facility] Rh Type Positive 08/08/2025 6:05 PM EDT [facility] Antibody Screen Negative 08/08/2025 6:05 PM EDT [facility] Blood Venous blood specimen / Unknown Venipuncture / Unknown 08/08/2025 3:01 PM EDT 08/08/2025 3:24 PM EDT us Savanna Cotter MD LAB BLOOD BANK TEST ORDERABLES F inal Result [facility] [address] [place] [address], * Basic metabolic panel (08/08/2025 3:01 PM EDT) Sodium 138 133 - 145 mmol/L LAB CHEMISTRY METHOD 08/08/2025 4:58 PM [facility] Potassium 3.9 3.5 - 5.5 mmol/L LAB CHEMISTRY METHOD 08/08/2025 4:58 PM [facility] Chloride 107 96 - 110 mmol/L LAB CHEMISTRY METHOD 08/08/2025 4:58 PM [facility] CO2 21 21 - 32 mmol/L LAB CHEMISTRY METHOD 08/08/2025 4:58 PM [facility] Anion Gap 10 3 - 11 LAB CHEMISTRY METHOD 08/08/2025 4:58 PM [facility] Glucose 80 70 - 100 mg/dL LAB CHEMISTRY METHOD 08/08/2025 4:58 PM [facility] BUN 9 5 - 25 mg/dL LAB CHEMISTRY METHOD 08/08/2025 4:58 PM [facility] Creatinine 0.54 0.50 - 1.10 mg/dL LAB CHEMISTRY METHOD 08/08/2025 4:58 PM [facility] eGFR 124 >=60 mL/min/1. 73m2 LAB CHEMISTRY METHOD 08/08/2025 4:58 PM EDT [facility] Comment:Calculation based on the Chronic Kidney Disease Epidemiology Collaboration (CKD-EPI) equation refit without adjustment for race. BUN/Creatinine Ratio 16.7 LAB CHEMISTRY METHOD 08/08/2025 4:58 PM EDT [facility] Calcium 9.3 8.5 - 10.5 mg/dL LAB CHEMISTRY METHOD 08/08/2025 4:58 PM EDT [facility] Blood Venous blood specimen / Unknown Venipuncture / Unknown 08/08/2025 3:01 PM EDT 08/08/2025 3:24 PM EDT us Savanna Cotter MD LAB BLOOD ORDERABLES Final Resul t [facility] [address] [place] [address], [place] [phone] * CT Chest wo Contrast (08/03/2025 2:03 [...] Signed Date: 08/10/2025 14:30 ET Workstation ID: [id number] Transcribed By: Self Edit Transcribed Date: 08/10/2025 [...] Signed Date: 08/10/2025 14:30 ET Workstation ID: [id number] Transcribed By: Self Edit Transcribed Date: 08/10/2025 12:59 ET us Savanna Cotter MD IMG CT PROCEDURES Final Result from Last 3 Months Insurance [facility] Advance Directives * Full Code - Default (Latest Code Status on File) Date Activated Date Inactivated Comments 08/17/2025 11:52 AM 08/17/2025 5:51 PM This is ord er is used when code status has not been discussed with the patient, or code status is otherwise unknown/unconfirmed To update the patient's code status, place a code status order. Do not modify or discontinue any currently active code status orders. Care Teams Mixing Technician Relationship Specialty Start Date End Date Estiven Little MD [address] [place] [phone] PCP - General Internal Medicine 07/19/25
== END 2025-09-12 16:23 | disposition home or self-care (01) ==
LOC: HO.HPSW 15:58
PROVIDERS: PCP Internal Medicine; Visit Provider Nurse Practitioner Family
DX: R91.1 Solitary pulmonary nodule (principal); R59.0 Localized enlarged lymph nodes
CPT/HCPCS: 99214

== ENCOUNTER 2025-10-25 14:30 | Outpatient (AMB) | payer BC, SELFPAY ==
--- NOTE | 2025-10-25 14:30 | MHC.OFFVIS ---
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 She is not having any sports equipment racker concerns at all she stopped control pills last year after her partner had his vasectomy and follow-up testing to be sure that it was complete and worked.. Her periods have normalized, when she went off the pill there was 1 month when her menses came late and she was nervous doing lots of test but after that everything has been fine,) and come every month and they are fine her last period was October 20. She thinks she can tell when she ovulates. She does [employer] for exercise now as the adult [employer] dance class was later then she liked. 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 She feels she could always lose some weight but is not having any major issues. She has no concerns at all about STIs as she is in a monogamous relationship. And she is not due for Pap smear until 2026 and she has never had an abnormal. She grew up in [place] and believes she went to [facility] and believes she had the HPV vaccine. She had had an episode of unusual symptoms and had gone for evaluation as an urgent care and threw up everything they gave her and then was that referred from there for more complete evaluation with CAT scans and a nodule was found incidentally on her lungs show she has been getting lots of screening tests and scans through pulmonology which so far is proving negative. [facility] Medical History Mediastinal lymphadenopathy Pulmonary nodule Cognitive change Anxiety Surgical History [place] teeth removed Hx of tonsillectomy H/O left wrist surgery Family History Mother Hypothyroid Father Cancer Mental health disorder Social History Housing: House Alcohol intake: never Patient Tobacco Use Status: Never used Tobacco e-Cigarette/Vaping Use: Never Used Substance Use Type: Marijuana service: No Current occupational status: employed Cognitive needs: No Hearing needs: No Vision needs: Yes Female Reproductive History Menstrual Age of Menarche: 13 Duration of menses: 3-5 days Date of last menstrual period: 10/20/25 control method: none Total pregnancies: 0 Date of last pap smear: 02/23/22 (negative pap smear, negative hpv ) Physical Exam Vital Signs: Last Vital Signs BP 116/72 10/25/25 14:35 Const General: healthy appearing, comfortable, no acute distress, well developed and alert Nutritional Appearance: average body habitus Orientation/consciousness: patient oriented x3 Limitations: no limitations HEENT Head: Yes normocephalic Neck Neck: Yes normal visual inspection Chest Chest palpation & inspection: normal inspection of the chest Breast/axilla inspection: normal inspection of the breasts and normal inspection of the axillae Breast/axilla palpation: normal palpation of the breasts and normal palpation of the axillae Resp Effort & Inspection: normal respiratory effort GI Inspection: Yes normal to inspection, No Abdominal wall edema and No distended Palpation (GI): Soft to palpation and nontender External Female Exam: normal external appearance and normal appearance of the urethra Neuro General: patient oriented x3 Results Reviewed Results Reviewed: Name: Mariana Berry Age/Sex: 31/F Attending: Ninfa Davalos CNM : 1990 Submitted by: Ninfa Davalos CNM Copies to: Estiven Little MD MR #: [id number] Status: DEP REF Collected: 02/23/22 Location: .LAB Received: 02/24/22 Interpretation Satisfactory for evaluation. No endocervical cells seen. Negative for intraepithelial lesion or malignancy. HPV mRNA E6/E7: NOT DETECTED This assay detects E6/E7 viral messenger RNA (mRNA) from 14 high-risk HPV types (16, 18, 31, 33, 35, 39, 45, 51, 52, 56, 58, 59, 66, 68) HPV testing performed by [facility], [place], [place]. See reference laboratory pion of the EMR for entire report. Clinical Information LMP:01/28/22 Previous PAP test:3 years, Unknown findings Material Received ThinPrep-Cervical Copies To Estiven Little MD [address] [place] [id number] [address] [place] [address] Electronically Signed By: MART Jose (ASCP) 03/10/22 1440 The Pap Test is a screening procedure with the inherent possibility of both false negative and false positive results. Results should be interpreted in the context of historic and current clinical findings. Reliability of the Pap Test is enhanced by performing the test on a regular repetitive basis. Patient: Mariana Berry Age/Sex: 31/F MR#: [id number] Page 1 of 1 Assessment & Plan Assessment & Plan (1) Surveillance for control, oral contraceptives: Code(s): Z30.41 - Encounter for surveillance of contraceptive pills Category: Medical (2) Relies on partner's vasectomy for primary method of contraception: Code(s): Z78.9 - Other specified health status Category: Social Hx (3) Cervical cancer screening: Comment: 02/23/22 Pap equals negative with negative HPV Code(s): Z12.4 - Encounter for screening for malignant neoplasm of cervix Category: Medical (4) Well woman exam (no gynecological exam): Code(s): Z00.00 - Encounter for general adult medical examination without abnormal findings Category: Medical Plan -----Discussed in this visit the following: healthy balanced diet, regular and consistent exercise, getting recommended health screens, doing the best she can for her particular health concerns, kegel exercises, pap smear screening and followup recommendations, mammography screening and SBE, normal changes in cycles in her life stage--- . Reviewed everything she is doing to keep herself as healthy as possible self-care and she feels like she is in a good place with the monogamous relationship and life is good right now. She is enjoying learning the tena-chi. So far her lung evaluation is proving to be not worrisome though it was at the start. She would be due for her next Pap smear in 2026 if she ever needed another method of control we could definitely speak about that and if she ever had any concern about STDs she could return for sooner testing none of those things apply currently. Her next appointment with us could be in a year if she has no need her next Pap smear should be in 2026. Coding Level of Care Code Est Pt Prev Care 18-39y(88188) Diagnoses Surveillance for control, oral contraceptives Z30.41 Relies on partner's vasectomy for primary method of contraception Z78.9 Cervical cancer screening Z12.4 Well woman exam (no gynecological exam) Z00.00
[2025-10-25 14:35] VITALS: BP 116/72; BMI 29.1
--- OUTSIDE RECORDS SUMMARY | 2025-10-25 20:12 | XMS_ITS | Clinical Summary ---
Author Organization [facility] Address [address] [place] [phone] Phone Care Team Providers Care Quality Process Lead Name Role Phone Marcio Mayer DO Primary Care Provider [phone] Medications levonorgestrel-e thinyl estradiol (AVIANE) 0.1-0.02 mg [...] topic Medical Devices Not on file [place] [address] [place] [address] [facility] Care Teams Quality Process Lead Relationship Specialty Start Date End Date Marcio Mayer DO PCP - General 09/07/17 Additional Source Comments The information contained in this document represents components of the legal health record. It is not the complete legal health record.[facility]
== END 2025-10-25 15:13 | disposition home or self-care (01) ==
LOC: HO.HWSM 14:30
PROVIDERS: PCP Internal Medicine; Visit Provider Advanced Practice Midwife
DX: Z01.419 Encounter for gynecological examination (general) (routine) without abnormal findings (principal); Z30.41 Encounter for surveillance of contraceptive pills; Z78.9 Other specified health status
CPT/HCPCS: 99395

== ENCOUNTER 2025-11-13 14:17 | Outpatient (AMB) | payer BC, SELFPAY ==
[2025-11-13 14:20] VITALS: BP 108/70; PULSE 90; O2SAT 98; BMI 29.4
--- NOTE | 2025-11-13 14:20 | MHC.PC.OV ---
Vital Signs 11/13/25 14:20 Height 4 ft 8 in Weight 131 lb BMI 29.4 BP 108/70 Blood Pressure Location Lt brachial Position Sitting Pulse 90 Pulse Source Pulse Oximeter Pulse Oximetry (%) 98 Intake Visit Reasons: Annual PE Allergies No Known Allergies Allergy (Verified 11/13/25 14:20) Medication List - Last Reconciled 11/13/25 by Estiven Little MD escitalopram oxalate 10 mg PO DAILY Tobacco use date assessed: 11/13/25 Dental Screening Dental Screen Date: 11/13/25 Did you have a dental visit in the last 12 months?: Yes Did you have a dental problem in the last 6 months where you did not have access to dental care?: No Was dental information given to patient?: Patient has dentist HPI HPI Comments History of Present Illness Details History of Present Illness The patient is a 35 year old female presenting for an annual physical examination. Anxiety: - The patient reports having anxiety with racing thoughts. - Her condition is managed by a neurologist with an unspecified medication, which she finds helpful. Health Maintenance: - The patient's last PARTS COORDINATOR visit was recent, at the end of September or early October. - She receives breast exams from her PARTS COORDINATOR. - She is due for a tetanus vaccine. - Annual blood tests are due and will be ordered. [place] of Care - The patient follows with Neurology for anxiety. - The patient follows with an PARTS COORDINATOR for routine care. [facility] Medical History Mediastinal lymphadenopathy Pulmonary nodule Cognitive change Anxiety Surgical History [place] teeth removed Hx of tonsillectomy H/O left wrist surgery Family History Mother Hypothyroid Father Cancer Mental health disorder Social History Housing: House Alcohol intake: never Patient Tobacco Use Status: Never used Tobacco e-Cigarette/Vaping Use: Never Used Substance Use Type: Marijuana service: No Current occupational status: employed Cognitive needs: No Hearing needs: No Vision needs: Yes Female Reproductive History Menstrual Age of Menarche: 13 Questionnaire PHQ-9 Over the last 2 weeks, how often have you been bothered by any of the following problems? 1. Little interest or pleasure in doing things: not at all 2. Feeling down, depressed, or hopeless: several days 3. Trouble falling or staying asleep, or sleeping too much: several days 4. Feeling tired or having little energy: several days 5. Poor appetite or overeating: several days 6. Feeling bad about yourself - or that you are a failure or have let yourself or your family down: not at all 7. Trouble concentrating on things, such as reading the newspaper or watching television: several days 8. Moving or speaking so slowly that other people could have noticed. Or the opposite - being so fidgety or restless that you have been moving around a lot more than usual: not at all 9. Thoughts that you would be better off or of hurting yourself in some way: not at all Total score: 5 Depression Screening Interpretation: Negative Depression Screening Done: Yes 94428 - PHQ-9 Billing: Yes Source: Developed by Drs. Jeromy Qureshi, Madonna Maldonado, Nilay Vidal and colleagues, with an educational mechelle from [employer]. Thrive Questionnaire Date Thrive assessed: 11/06/25 I am a: Patient What is your living situation today?: I have a steady place to live Within the past 12 months, did the food you bought not last and you didn't have the money to get more?: Never true Within the past 12 months, did you worry whether your food would run out before you got money to buy more?: Never true Do you have trouble paying for medicines?: No Do you have trouble getting transportation to medical appointments?: No Do you have trouble paying your heating and electricity bill?: No Do you have trouble taking care of your child, family member or friend?: No Do you have trouble with day-to-day activities such as bathing, preparing meals, shopping, managing finances, etc.?: No Are you currently unemployed and looking for a job?: No Are you interested in more education?: No Please select the resources that you would like help with: None Currently or been in a relationship where the following occur: No concerns reported THRIVE Score: 0 AUDIT C Alcohol Use Questionnaire (AUDIT-C) 1. How often do you have a drink containing alcohol?: Never 3. How often do you have six or more drinks on one occasion?: Never Total Score: 0 Score Reviewed/Action Taken: Yes CHAYO-7 AMB Questionnaire CHAYO-7 Date CHAYO - 7 assessed: 11/13/25 Feeling nervous, anxious, or on edge: 1 = Several days Not being able to stop or control worryin = Several days Worrying too much about different things: 1 = Several days Trouble relaxin = Several days Being so restless that it is hard to sit still: 0 = Not at all Becoming easily annoyed or irritable: 1 = Several days Feeling afraid as if something awful might happen: 0 = Not at all Total CHAYO-7 score (0-4 normal; 5-9 mild; 10-14 moderate; 15-21 severe): 5 Source: Developed by Drs. Jeromy Qureshi, Madonna Maldonado, Nilay Vidal and colleagues, with an educational mechelle from [employer]. CHAYO-7 Assessment Billing CHAYO-7 Assessment Tool: CHAYO-7 Assessment 10847 Review of Systems Narrative Review of Systems - General: No fever no chills - Neurological: No headaches no dizziness - Ear nose throat: No sore throat no hearing difficulty no ear pain - Cardiovascular: No syncope, no chest pain, no palpitations - Gastrointestinal: No nausea vomiting or diarrhea - Endocrine: No polyuria polydipsia no heat intolerance - Genitourinary: No dysuria - Skin: No new complaints Physical exam (Primary Care) Vital Signs: Last Vital Signs Pulse 90 11/13/25 14:20 BP 108/70 11/13/25 14:20 Pulse Ox 98 11/13/25 14:20 BMI result Body Mass Index 29.4 Tobacco/Smoking Status: Tobacco use Status Tobacco use date assessed 11/13/25 11/13/25 14:23 Patient Tobacco Use Status Never used Tobacco 11/13/25 14:23 e-Cigarette/Vaping Use Never Used 11/13/25 14:23 PHQ-9: PHQ-9 Score PHQ-9: Total score 5 11/13/25 14:38 Depression Screening Interpretation: Negative Thrive Assessment: Date of Thrive Assessment Date Thrive assessed 11/06/25 11/13/25 14:23 Currently or been in a relationship where the following occur: No concerns reported Narrative Physical Exam General: Cooperative, healthy appearing, comfortable, no acute distress Orientation: Patient oriented x3 Head: Normal to inspection Ears: Within normal limit visually Nose: Normal external nose present Face and sinus: Normal facial exam Eyes: Appearance normal, extraocular movement intact pupils reactive Neck: Normal visual inspection and supple Respiratory: Normal respiratory effort and able to speak in complete sentences. Clear to auscultation, no stridor Cardiovascular: S1 and S2 RRR GI: Normal to inspection. Soft to palpation and nontender Skin: Turgor normal, no acute findings, no rashes, no moles, no skin problems Neuro: Patient oriented x3, motor sensory intact, balance intact, tandem pass Extremities: Normal to inspection, range of motion intact . Immunizations Boostrix Tdap 2.5 Lf unit-8 mcg-5 Lf/0.5 mL intramuscular syringe Performing Provider: Estiven Little MD Performing Location[place] [facility] Administered by: Paulino Kasper CMA on 11/13/25 14:38 Dose Route Admin Location Dispensed Lot Number Expiration Date [facility] Raw Stock Drier Tender 0.5 mL IM Left Deltoid 0.5 mL [id number] 05/03/28 [id number] [email or web address] Total Dispensed Waste 0.5 mL 0 % VIS Given Date VIS Provided VIS Publication Date 11/13/25 Single Vaccine 21 Eligibility Eligibility Date Funding Source Not [facility] Eligible 11/13/25 Private Coding Level of Care Code Est Pt Prev Care 18-39y(73826) Diagnoses Adult general medical exam Z00.00 Anxiety, generalized F41.1 Overweight (BMI 25.0-29.9) E66.3 B12 deficiency E53.8 SCOTTY positive R76.8 Additional Codes CHAYO-7 Assessment Billing - CHAYO-7 Assessment Tool: CHAYO-7 Assessment 63395 ([id number]) PHQ-9 - 98380 - PHQ-9 Billing: Yes ([id number]) Assessment & Plan Assessment & Plan (1) Adult general medical exam: Code(s): Z00.00 - Encounter for general adult medical examination without abnormal findings Category: Medical (2) Anxiety, generalized: Code(s): F41.1 - Generalized anxiety disorder Category: Medical (3) Overweight (BMI 25.0-29.9): Code(s): E66.3 - Overweight Category: Medical (4) B12 deficiency: Code(s): E53.8 - Deficiency of other specified B group vitamins Category: Medical (5) SCOTTY positive: Comment: Borderline positive 01:40 10/2024. She does not have cytopenias or kidney dysfunction on recent labs. At this time she does not have any symptoms or signs suggestive of systemic connective tissue disease. Code(s): R76.8 - Other specified abnormal immunological findings in serum Category: Medical Plan Patient Instructions - You will be given a tetanus vaccine today. - Please get your blood tests done at the lab. - Please book your appointment for next year at the checkout window. Orders: Orders TDaP Immunization Today Z23 - Encounter for immunization Lipid Panel Today E53.8 - Deficiency of other specified B group vitamins, E66.3 - Overweight, F41.1 - Generalized anxiety disorder, R76.8 - Other specified abnormal immunological findings in serum, Z00.00 - Encounter for general adult medical examination without abnormal findings Complete Blood Count Auto Diff Today E53.8 - Deficiency of other specified B group vitamins, E66.3 - Overweight, F41.1 - Generalized anxiety disorder, R76.8 - Other specified abnormal immunological findings in serum, Z00.00 - Encounter for general adult medical examination without abnormal findings Comprehensive [place]. Panel Fast Today E53.8 - Deficiency of other specified B group vitamins, E66.3 - Overweight, F41.1 - Generalized anxiety disorder, R76.8 - Other specified abnormal immunological findings in serum, Z00.00 - Encounter for general adult medical examination without abnormal findings Vitamin D 25-OH (D2 and D3) Today E53.8 - Deficiency of other specified B group vitamins, E66.3 - Overweight, F41.1 - Generalized anxiety disorder, R76.8 - Other specified abnormal immunological findings in serum, Z00.00 - Encounter for general adult medical examination without abnormal findings TSH reflex Free T4 Today E53.8 - Deficiency of other specified B group vitamins, E66.3 - Overweight, F41.1 - Generalized anxiety disorder, R76.8 - Other specified abnormal immunological findings in serum, Z00.00 - Encounter for general adult medical examination without abnormal findings
--- OUTSIDE RECORDS SUMMARY | 2025-11-13 15:35 | XMS_ITS | Clinical Summary ---
Author Organization [address] Address [address] [place] [address] Phone Care Team Providers Care Floor Framer Name Role Phone Estiven Little MD Primary Care Provider [phone] Allergies No known active allergies Medications escitalopram (LEXAPRO) 10 mg tablet Take 1 tablet (10 mg total) by mouth at bedtime. Active Active Problems Problem Noted Date Diagnosed Date Lung mass 07/26/2025 Encounters Date Type Department Care Team Description 09/28/2025 Telephone Thoracic Surgery - [address] [phone] [place] 08/23/2025 2:30 PM EDT Office Visit Thoracic Surgery [address] [phone] Savanna Cotter MD Lung mass (Primary Dx) 08/17/2025 1:00 PM EDT - 08/17/2025 3:00 PM EDT Surgery [facility] OR [address] [place] [phone] Savanna Cotter MD Navigational bronchoscopy/EBUS with biopsies [28425 (CPT ) +5 more] 08/17/2025 12:22 PM EDT Anesthesia Event [facility] OR [address] [place] [phone] Patel Parsons MD Hard, Shannon, CRNA 08/17/2025 11:33 AM EDT - 08/17/2025 3:37 PM EDT Hospital Encounter [facility] OR [address] [place] [phone] Savanna Cotter MD Lung mass Discharge Disposition: Home or Self Care 08/17/2025 7:20 AM EDT - 08/17/2025 11:59 PM EDT Hospital Encounter [facility] Xray [address] [place] [phone] Pain Discharge Disposition: Home or Self Care from Last 3 Months Surgical History Surgery [...] AM EDT Sexual Orientation Not on file Last Filed Vital Signs Vital Sign Reading [...] of 3 - 19+ 3-dose series) 2010 Pneumococcal Vaccine: Pediat rics (0 to 5 Years) and At-Risk Patients (6 to 49 Years) (1 of 2 - PCV) 2010 Cervical Cancer Screening: P ap Smear 2012 HPV Vaccines (1 - Risk 3-dos e SCDM series) 2018 COVID-19 Vaccine (2 - Pfizer risk series) 09/30/2022 09/09/2022 Depression Screening 11/22/2024 HIV Screening 07/19/2025 Hepatitis C Screening 07/19/2025 Social Influencers of Health Screening 07/19/2025 Influenza Vaccine (#1) 2025 RSV Immunization Adult [...] Procedure Name Priority Date/Time Associated Diagnosis Comments ..ORGANISM IDENTIFICATION, MOLD RESULT Routine 09/17/2025 9:54 AM EDT FUNGAL IDENTIFICATION, MOLD Routine 09/17/2025 9:54 AM EDT XR CHEST 1 VIEW STAT 08/17/2025 1:48 [...] ENDOTRACHEAL(NO CHARGE) Routine 08/17/2025 12:37 PM EDT IN CORE NDL BX LNG/MED PERQ 08/17/2025 12:21 PM EDT Lung mass Case Notes C-ARM IN BRONCHOSCOPY INCL FLUORO GUIDANCE W BRONCHIAL/ENDOBRONCHI AL BX SGL/MULT 08/17/2025 12:21 PM EDT Lung mass Case Notes C-ARM IN BRONCHOSCOPY RIGID/FLEXIBLE W/TRANSBRONCHIAL LUNG BIOPSY(S) SINGLE LOBE 08/17/2025 12:21 PM EDT Lung mass Case Notes C-ARM IN BRONCHOSCOPY RIGID/FLEXIBLE COMPUTER ASSISTED IMAGE GUIDED NAVIGATION 08/17/2025 12:21 PM EDT Lung mass Case Notes C-ARM IN BRONCHOSCOPY INCL FLUOROSCOPIC GUID W EBUS DURING PERIPHERAL LESION 08/17/2025 12:21 PM EDT Lung mass Case Notes C-ARM IN BRONCHOSCOPY INCL FLUROSCOPIC GUIDANCE W PLCMNT FIDUCIAL MARKER SGL/MULT 08/17/2025 12:21 PM EDT Lung mass Case Notes C-ARM POC PREGANCY, URINE NO CHARGE SCREENING MANUALLY RESULTED Routine 08/17/2025 11:53 AM EDT from Last 3 Months Results * Organism identification, mold result (09/17/2025 9:54 AM EDT) Result 1 SEE SCANNED RESULT 10/22/2025 10:05 AM EST [facility] Comment: This specimen was sent to [facility] in [place] for further studies. A final report will be reported from [place]. Edited result: Previously reported as Fungus isolated, identification in progress. on 10/22/2025 at 1005 EST. Other Topography unknown / Unknown Non-blood Collection / Unknown 09/17/2025 9:54 AM EDT 09/17/2025 9:55 AM EDT Narrative [facility] - 10/22/2025 10:05 AM EST Performed at: [address] [place] [id number] Specialty Cook: Pooja Dai MD, Phone: [phone] Savanna Cotter MD LAB MICROBIOLOGY - GENERAL ORDER JAN Final Result Performing Organization Address [facility] de Phone Number [facility] * Fungal identification, mold (09/17/2025 9:54 AM EDT) Organism Identification, Mold FINAL REPORT 10/22/2025 10:05 AM EST [facility] Comment:Edited result: Previ ously reported as Preliminary report on 10/22/2025 at 1005 EST. Other Topography unknown / Unknown Non-blood Collection / Unknown 09/17/2025 9:54 AM EDT 09/17/2025 9:55 AM EDT Narrative [facility] - 10/22/2025 10:05 AM EST Performed at: - [address] [id number] Specialty Cook: Pooja Dai MD, Phone: [phone] Savanna Cotter MD LAB MICROBIOLOGY - GENERAL ORDER JAN Final Result Performing Organization Address [facility] de Phone Number [facility] * XR Chest 1 View (08/17/2025 1:48 [...] Signed Date: 08/17/2025 14:34 ET Workstation ID: [id number] Transcribed By: Self Edit Transcribed Date: 08/17/2025 [...] Signed Date: 08/17/2025 14:34 ET Workstation ID: [id number] Transcribed By: Self Edit Transcribed Date: 08/17/2025 14:33 ET us Savanna Cotter MD IMG XR PROCEDURES Final Result * Leukemia, lymphoma evaluation by flow cytometry (08/17/2025 1:18 PM EDT) Scan Result See Scanned Result 08/22/2025 11:00 AM EDT EXTERNAL LAB (NON-INTERFAC ED) Tissue Mediastinal structure / Unknown 08/17/2025 1:18 PM EDT 08/17/2025 1:37 PM EDT Narrative EXTERNAL LAB (NON-INTERFACED) - 08/22/2025 11:00 AM EDT See scanned [employer] Report us Savanna Cotter MD LAB MOLECULAR DIAGNOSTICS ORDERA BLES Final Result Performing Organization Address [facility]/ZIP Co de Phone Number EXTERNAL LAB (NON-INTERFACED) * Culture bronchial with gram stain (08/17/2025 1:00 PM EDT) Bronchial Culture No growth at 3 days 08/20/2025 11:01 AM EDT [facility] Gram Stain Result No polymorphonuclear leukocytes, No epithelial cells, and No organisms noted 08/20/2025 11:01 AM EDT [facility] Wash Structure of lower lobe of right lung / Unknown 08/17/2025 1:00 PM EDT 08/17/2025 1:25 PM EDT Savanna Cotter MD LAB MICROBIOLOGY - GENERAL ORDER JAN Final Result Performing Organization Address [facility] de Phone Number [facility] [address] [place] [address], [place] [phone] * Concentration (08/17/2025 1:00 PM EDT) AFB Concentration Performed 4:05 PM EST [facility] Wash Structure of lower lobe of right lung / Unknown 08/17/2025 1:00 PM EDT 08/17/2025 1:25 PM EDT Narrative [facility] - 09/29/2025 4:05 PM EST Performed at: 01 - [facility] [address] [id number] Specialty Cook: Pooja Dai MD, Phone: [phone] us Savanna Cotter MD LAB BLOOD ORDERABLES Edited Resu lt - Final Performing Organization Address City/[facility]/ZIP Co de Phone Number [facility] * Culture, afb and smear with reflex to identification and susceptibility (08/17/2025 1:00 PM EDT) AFB Specimen Processing Concentration 09/29/2025 4:05 PM EST [facility] Acid Fast Smear Negative 09/29/2025 4:05 PM EST [facility] Acid Fast Culture Negative 09/29/2025 4:05 PM EST [facility] Comment:No acid fast bacilli isolated after 6 weeks. Wash Structure of lower lobe of right lung / Unknown 08/17/2025 1:00 PM EDT 08/17/2025 1:25 PM EDT Narrative [facility] - 09/29/2025 4:05 PM EST Performed at: 01 - [facility] [id number] Specialty Cook: Pooja Dai MD, Phone: [phone] us Savanna Cotter MD LAB MICROBIOLOGY - GENERAL ORDER JAN Final Result [facility] * Acid fast bacilli stain (08/17/2025 1:00 PM EDT) Pathologist [facility] AFB Stain Result No Acid fast bacilli seen on direct smear (Fuchsin method, 1000x) No Acid Fast Bacilli seen on direct smear 08/17/2025 8:07 PM EDT [facility] Wash Structure of lower lobe of right lung / Unknown 08/17/2025 1:00 PM EDT 08/17/2025 1:25 PM EDT us Savanna Cotter MD LAB MICROBIOLOGY - GENERAL ORDER JAN Final Result [facility] [address] [place] [address], [place] [phone] * (ABNORMAL) Culture fungal, other (08/17/2025 1:00 PM EDT) Pathologist [facility] Culture, Fungus Very Light Growth Fungus(A) 09/17/2025 10:04 AM EDT [facility] Comment: The organism value for this result has been updated. These results have been appended to the previously preliminary verified report. Wash Structure of lower lobe of right lung / Unknown 08/17/2025 1:00 PM EDT 08/17/2025 1:25 PM EDT Narrative [facility] - 09/17/2025 10:04 AM EDT Sent to reference lab see [facility]-[id number] for identification us Savanna Cotter MD LAB MICROBIOLOGY - GENERAL ORDER JAN Final Result [facility] [address] [place] [address], * Non-gynecologic cytology (08/17/2025 12:58 PM EDT) [...] small lymphocytes. Please see concurrent core biopsy, [id number], for characterization . 08/23/2025 10:30 AM EDT [facility] at 1030 EDT Specimen A Adequacy Satisfactory for evaluation 08/23/2025 10:30 AM T [facility] Specimen B Adequacy Satisfactory for evaluation 08/23/2025 10:30 AM T [facility] Specimen C Adequacy Satisfactory for evaluation 08/23/2025 10:30 AM T [facility] Specimen D Adequacy Satisfactory for evaluation 08/23/2025 10:30 AM EDT [facility] Gross Description A. [...] 11.5 hours. rp 08/23/2025 10:30 AM EDT [facility] Disclaimer Unless otherwise specified, all tissue is 10% NB formalin fixed and paraffin embedded. Technical cytopathology services provided by [facility], at [address] [place] [address] (CLIA # [id number]/Bisi Walker MD, Home Health Rn.) 08/23/2025 10:30 AM EDT [facility] Brushing Structure of lower lobe of [...] MD LAB CYTOLOGY ORDERABLES Final Re sult [facility] [address] [place] [address], [place] [phone] * Tissue exam (08/17/2025 12:51 PM EDT) Final Diagnosis A. Lung, Right Lower Lobe, Nodule - Cryo Biopsy: Mixed population of bland lymphocytes. No neoplasm identified. See comment. B. Mediastinum, Right Hilar Mass, Biopsy: Mixed population of bland lymphocytes. No neoplasm identified. See comment. 10:21 AM EDT [facility] at 1021 EDT Comment Histologic sections [...] supports the above diagnosis. Controls stain appropriately. 10:21 AM EDT [facility] Gross Description A. [...] is placed in RPMI and submitted to [facility], [facility], for flow cytometric studies. The balance of the specimen is submitted into cassette, one and two pieces respectively (one H&E, +15 unstained slides for potential immunohistochemical stains and one H&E), conserving tissue, cut at 3 m. TS 10:21 AM EDT [facility] Disclaimer NOTE: The immunohistochemical tests and in situ hybridization tests were developed and their performance characteristics were determined by [facility]. They have not been [...] fixed and paraffin embedded. 10:21 AM EDT [facility] Tissue Structure of lower lobe of right lung / Unknown 08/17/2025 12:51 PM EDT 08/17/2025 1:35 PM EDT Tissue specimen (specimen) Mediastinal structure / Unknown 08/17/2025 1:18 PM EDT 08/17/2025 1:35 PM EDT us Savanna Cotter MD LAB PATHOLOGY ORDERABLES Final R esult [facility] [address] [place] [address], * TH AN ENDOTRACHEAL(NO CHARGE) (08/17/2025 12:37 PM EDT) Cooper Anderson DO - 08/17/2025 12:37 PM EDT Cooper Dos Santos DO 08/17/2025 2:51 PM Other Attempts Unsuccessful attempted endotracheal techniques: direct laryngoscopy General Information and Staff Patient location during procedure: OR Anesthesiologist: Cooper Dos Santos DO Resident/UPHOLSTERY PARTS SORTER: Renetta Olivia CRNA Performed: resident/UPHOLSTERY PARTS SORTER/CAA Performed by: Renetta Olivia CRNA Authorized by: [...] CARE TEST ENTER/EDIT OR DERABLES Final Result from Last 3 Months Insurance [facility] Advance Directives * Full Code - [...] currently active code status orders. Care Teams Floor Framer Relationship Specialty Start Date End Date Estiven Little MD [address] [place] [phone] PCP - General Internal Medicine 07/19/25
--- OUTSIDE RECORDS SUMMARY | 2025-11-13 15:35 | XMS_ITS | Clinical Summary ---
Author Organization [facility] Address [address] [place] [address] Phone Care Team Providers Care Septic Tank Servicer Name Role Phone Marcio Mayer DO Primary Care Provider [phone] Medications levonorgestrel-e thinyl estradiol (AVIANE) 0.1-0.02 mg [...] topic Medical Devices Not on file Insurance [place] [address] [facility] Care Teams Septic Tank Servicer Relationship Specialty Start Date End Date Marcio Mayer DO PCP - General 09/07/17 Additional Source Comments The information contained in this document represents components of the legal health record. It is not the complete legal health record.[facility]
== END 2025-11-13 14:39 | disposition home or self-care (01) ==
LOC: HO.HMCC 14:17
PROVIDERS: PCP Internal Medicine; Visit Provider Internal Medicine
DX: Z00.00 Encounter for general adult medical examination without abnormal findings (principal); F41.1 Generalized anxiety disorder; E66.3 Overweight; E53.8 Deficiency of other specified B group vitamins; R76.89 Other specified abnormal immunological findings in serum; Z23 Encounter for immunization

== ENCOUNTER → 2025-11-13 14:17 | Outpatient (BNVA) | payer BC, SELFPAY | PROVIDERS: PCP Internal Medicine; Visit Provider Internal Medicine | DX: Z13.31 Encounter for screening for depression (principal); Z13.39 Encounter for screening examination for other mental health and behavioral disorders; Z23 Encounter for immunization | CPT/HCPCS: 90471; 90715; 96127 ==

== ENCOUNTER 2025-11-19 10:03 | Outpatient (REF) | payer BC, SELFPAY ==
--- OUTSIDE RECORDS SUMMARY | 2025-11-19 11:16 | XMS_ITS | Clinical Summary ---
Author Organization [facility] Address [address] [place] [phone] Phone Care Team Providers Care Bit Sander Name Role Phone Marcio Mayer DO Primary Care Provider [phone] Medications levonorgestrel-e thinyl estradiol (AVIANE) 0.1-0.02 mg [...] topic Medical Devices Not on file [place] [address] [facility] Care Teams Bit Sander Relationship Specialty Start Date End Date Marcio Mayer DO PCP - General 09/07/17 Additional Source Comments The information contained in this document represents components of the legal health record. It is not the complete legal health record.[facility]
--- OUTSIDE RECORDS SUMMARY | 2025-11-19 11:16 | XMS_ITS | Clinical Summary ---
Author Organization [address] Address [address] [place] [address] Phone Care Team Providers Care Fur Cleaner Name Role Phone Estiven Little MD Primary Care Provider [phone] Allergies No known active allergies Medications escitalopram (LEXAPRO) 10 mg tablet Take 1 tablet (10 mg total) by mouth at bedtime. Active Active Problems Problem Noted Date Diagnosed Date Lung mass 07/26/2025 Encounters Date Type Department Care Team Description 09/28/2025 Telephone Thoracic Surgery - [address] [phone] [place] 08/23/2025 2:30 PM EDT Office Visit Thoracic Surgery [address] [phone] Savanna Cotter MD Lung mass (Primary Dx) [...] IDENTIFICATION, MOLD Routine 09/17/2025 9:54 AM EDT from Last 3 Months Results * Organism identification, mold result (09/17/2025 9:54 AM EDT) Result 1 SEE SCANNED RESULT 10/22/2025 10:05 AM EST [facility] Comment: [facility] [place] [facility] A final report will be reported from [place]. Edited result: Previously reported as Fungus isolated, identification in progress. on 10/22/2025 at 1005 EST. Other Topography unknown / Unknown Non-blood Collection / Unknown 09/17/2025 9:54 AM EDT 09/17/2025 9:55 AM EDT [facility]arrative [facility] - 10/22/2025 10:05 AM EST Performed at: 01 - [facility] [id number] [place] Machine Operator: Pooja Dai MD, Phone: [phone] us Savanna Cotter MD LAB MICROBIOLOGY - GENERAL ORDER JAN Final Result [facility] * Fungal identification, mold (09/17/2025 9:54 AM EDT) Organism Identification, Mold FINAL REPORT 10/22/2025 10:05 AM EST [facility] Comment:Edited result: Previ ously reported as Preliminary report on 10/22/2025 at 1005 EST. Other Topography unknown / Unknown Non-blood Collection / Unknown 09/17/2025 9:54 AM EDT 09/17/2025 9:55 AM EDT Narrative [facility] - 10/22/2025 10:05 AM EST Performed at: 01 - [facility] [address] [id number] [place] Machine Operator: Pooja Dai MD, Phone: [phone] us Savanna Cotter MD LAB MICROBIOLOGY - GENERAL ORDER JAN Final Result [facility] from Last 3 Months Insurance [facility] Advance Directives * Full Code - [...] currently active code status orders. Care Teams Fur Cleaner Relationship Specialty Start Date End Date Estiven Little MD [address] [place] [address] PCP - General Internal Medicine 07/19/25
[2025-11-19 13:59] LABS: MANUAL DIFF FLAG NO
[2025-11-19 14:08] LABS: Hematocrit 39.0 % (37.0-47.0); Hemoglobin 13.3 g/dl (12.0-16.0); Imm Gran Abs Auto 0.07 X10*3/uL (0.00-0.03); Imm Gran Pct Auto 0.7 % (0.0-0.4); Lymphocytes Absolute Auto 3.5 X10*3/uL (1.2-4.9); Mean Corpuscular HGB Conc 34.1 g/dl (31.0-35.0); Mean Corpuscular Hemoglobin 30.2 pg (27.0-33.0); Mean Corpuscular Volume 88.4 fL (80.0-98.0); NRBC Abs Auto 0.000 X10*3/uL (0.0-0.012); NRBC Pct Auto 0.0 /100WBC (0.0-0.2); Platelet Count 271 X10*3/uL (160-400); Red Blood Count 4.41 X10*6/uL (4.20-5.50); White Blood Count 10.2 X10*3/uL (4.8-10.8)
[2025-11-19 14:57] LABS: Alanine Aminotransferase 15 U/L (0-31); Albumin Level 4.1 g/dL (3.5-5.0); Alkaline Phosphatase 69 U/L (39-117); Anion Gap 11 (12-20); Aspartate Amino Transferase 20 U/L (5-31); Blood Urea Nitrogen 11 mg/dL (9-16); Calcium 8.5 mg/dL (8.4-10.2); Carbon Dioxide 25 mmol/L (22-29); Chloride 110 mmol/L (96-108); Cholesterol 168 mg/dL (<200); Estimated Glomerular Filt Rate > 60; HDL Cholesterol 35 mg/dL (>40); Potassium 4.0 mmol/L (3.3-5.1); Sodium 142 mmol/L (135-145); Total Protein 6.3 g/dL (6.5-8.0); Triglycerides 163 mg/dL (<150)
== END 2025-11-19 10:04 | disposition home or self-care (01) ==
LOC: HO.HMGCLDS 10:03
PROVIDERS: PCP Internal Medicine; Visit Provider Internal Medicine
DX: Z00.00 Encounter for general adult medical examination without abnormal findings (principal); F41.1 Generalized anxiety disorder; E53.8 Deficiency of other specified B group vitamins; E66.3 Overweight; R76.89 Other specified abnormal immunological findings in serum; Z13.21 Encounter for screening for nutritional disorder
CPT/HCPCS: 36415; 80053; 80061; 82306; 84443; 85025